=== PATIENT | male | born 1940 | race Caucasian/White ===

== ENCOUNTER → 2017-04-29 09:42 | Outpatient (CLI) | payer MEDICARE, OTHER, SELFPAY ==
[2017-04-29 12:45] LABS: Absolute Lymphocyte Count 0.88 X10^3/ul (0.83-4.51); Absolute Neutrophil Count 3.2 X10^3/uL (2.0-7.7); Basophil# 0.01 X10^3/uL; Basophil% 0.2 % (0-1); Eosinophil# 0.07 X10^3/uL; Eosinophils% 1.5 % (0-5); Hematocrit 48.1 % (40-54); Hemoglobin 16.1 g/dl (13.0-16.5); Lymphocyte # 0.88 X10^3/ul (4.0); Lymphocyte % 19.3 % (19-41); Mean Corp Hgb Conc 33.5 g/gl (32-36); Mean Corpuscular Hgb 30.6 pg (27.0-32.0); Mean Corpuscular Volume 91.4 fL (80-94); Mean Platelet Vol. 12.3 fl (6.2-12.0); Monocyte# 0.35 X10^3/uL; Monocyte% 7.7 % (0-10); Neutrophil # 3.24 X10^3/uL (2.7-7.7); Neutrophil % 71.3 % (47-70); Platelet Count 145 K/mm3 (150-450); RBC Distribution Width CV 15.4 % (11.6-14.6); RBC Distribution Width SD 51.2 fl (35.1-43.9); Red Blood Count 5.26 M/mm3 (4.6-6.2); White Blood Count 4.6 K/mm3 (4.4-11.0)
[2017-04-29 12:46] LABS: POSITIVE COUNT NO; POSITIVE DIFFERENTIAL NO; POSITIVE MORPHOLOGY NO
[2017-04-29 12:55] LABS: International Normalized Ratio 3.1; Prothrombin Time (Protime)PT. 30.8 SECONDS (11.7-14.9)
[2017-04-29 13:14] LABS: Microalbumin,Random Urine 9.1 mg/L (NO RANGE EST.); Microalbumin:Creatinine Ratio 8.7 mg/g CRE (<30 mg/g CRE)
[2017-04-29 13:26] LABS: ALB/GLOB Ratio 1.2 RATIO (0.9-2.4); AST(SGOT) 18 U/L (15-37); Alanine Aminotransfer ALT/SGPT 26 U/L (16-61); Albumin, Serum 3.7 g/dL (3.2-5.0); Alkaline Phosphatase 115 U/L (45-117); Anion Gap 9 (5-15); BUN 14 mg/dL (7-18); BUN/Creat Ratio 17.7 RATIO (10-20); Calcium,Total 8.4 mg/dL (8.5-10.1); Chloride 106 mmol/L (98-107); Cholesterol 120 mg/dL (200); Creatinine, Serum 0.79 mg/dL (0.70-1.30); EST Glomerular Filtration Rate 101 mL/min (>60); Est Glom Filt Rate - Afr Amer 123 mL/min (>60); Globulin 3.1 g/dL (2.2-4.2); Glucose 99 mg/dL (74-106); High Density Lipoprotein 47 mg/dL; Potassium 4.1 mmol/L (3.5-5.1); Protein, Total 6.8 g/dL (6.4-8.2); Sodium Level 141 mmol/L (136-145); Thyroid Stim Hormone (TSH) 1.43 uIU/mL (0.358-3.74); Triglycerides 136 mg/dL; Very Low Density Lipoprotein 27 mg/dL (5-40)
== END ==
PROVIDERS: Family Provider Family Medicine; PCP Family Medicine; Visit Provider Family Medicine
DX: I25.10 Atherosclerotic heart disease of native coronary artery without angina pectoris (principal); M79.89 Other specified soft tissue disorders; I48.91 Unspecified atrial fibrillation
CPT/HCPCS: 36415; 80053; 80061; 82043; 82570; 83735; 84443; 85025; 85610

== ENCOUNTER 2017-06-22 11:00 | Outpatient (RCR) | payer MEDICARE, OTHER, SELFPAY ==
--- NOTE | 2017-05-18 17:26 | HP.PTEVAL_ITS ---
Patient's Visit Information JOSSE TIRADO is a 76 year old M referred to Physical Therapy by Abdirizak LYNN with a diagnosis of Shoulder, hip weakness and falls/gait disturbance. Date of Evaluation: 05/18/17 Physical Therapist: Rosaura Hardy - Visit Plan Frequency: 2-3x /Week Duration: 4-6 Weeks Plan: 2-3X/ week for 4-6 weeks for testing on the NeuroCOm and treatment based on results on NeuroCOm, LE strengtheing, balance activities, functional activities with HEP - Subjective Subjective: Pt reports that he has fallen 3X in the last year and the last one was in [place] and he slipped on wet cement and fell hard on his L side. He reports that even before he fell he was having trouble picking up his L leg ( has fallen 2X on the step for not lifting up his foot high enough). He has L sided weakness. He has some trouble with increaing SOB and increase fatigue. Pt has aan irregular HB and has had a cardiac stent placed. He has not seen a laundry routeman in years. He complains of tingling in his L foot. He reports that his feet are always cold. He feels that he has decreased circulation in his feet. He reports that he gets dizzy with transitions and that sometime when he is walking. He reports that he has a fear of falling and a fear of heights. reports htat the pt has some trouble getting out of a chair. He also has trouble going up and down stairs (he goes up with the R foot) with 2 hand rails. Pt reports that he had meds for an ear infetion and he does not feel like it is getting any better. - Pain back pain Pain Intensity (Out of 10): 1 L leg pain Pain Intensity (Out of 10): 1 - Objective Gait: walks with decrease stance time on the L LE, wider HENNY. FGA: 13. LE MMT: hip flex L 4-/5 and hip flex R 4/5, knee ext 4/5 B, knee flex B, hip abd B 4/5. Sit to stands...needs UE strength to help get out of the chair. - Balance Scores Functional Gait Assessment Score: 13 % Disability: 56.6700 - Goals Goal 1:: I HEP Goal Time Frame: 4-6 Weeks Goal 2:: Increase FGA by 5 points to decrease fall risk Goal Time Frame: 4-6 Weeks Goal 3:: Test pt on the NeuroCOM Goal Time Frame: 4-6 Weeks Goal 4:: Increase LE strength by 1.2 muscle grade on the L (LE MMT at time of the eval: hip flex L 4-/5 and hip flex R 4/5, knee ext 4/5 B, knee flex B, hip abd B 4/5 - Rehabilitation Potential Rehabilitation Potential: Good - Anticipated Interventions Patient/Client Instruction: Educate patient on: Condition, Plan of Care For the Purpose of:: To improve muscle performance and motor function, To improve ability to perform ADL's, To increase tolerance to activity/condition/ position, To improve ability of physical actions for home/community/work/leisure , To improve gait and locomotor functions, To increase flexibility/ROM, To improve balance, To improve safety with gait Therapeutic Exercise to Include: Strength training, Endurance training, Balance training, Postural training, Flexibilty training, Gait and locomotor training, via Neurocom Balance Mas, Passive ROM, Dynamic Lumbar Stabilization For the Purpose of:: To decrease pain, To improve nutrient delivery to tissue, To improve ability to perform ADL's, To increase tolerance to activity/condition /position, To improve ability of physical actions for home/community/work/ leisure, To improve gait and locomotor functions, To increase flexibility/ROM, To improve balance, To improve safety with gait Functional Training to Include: Gait training For the Purpose of:: To improve gait and locomotor functions, To improve safety with gait Thank you for the opportunity to evaluate your patient. For Medicare and Medicare HMO plans, please review the plan of care and approve it. It will need to be FAXED BACK to us at [phone] for Medicare purposes. Please let me know if there are questions or concerns regarding this plan of care. Physician Signature: Date:
--- NOTE | 2017-05-25 16:26 | HP.PTCOM ---
PT Communication Note 05/25/[address] Abdirizak LYNN, Thank you for the referral of Mariano Leonard to our clinic with the diagnosis of falls, back pain. He was tested on our NeuroCom Equitest today and enclosed are the test results. On the Sensory Organization Test (SOT) his overall score was below age related norms. He had trouble with the use of his vestibular system to help him maintain his balance. He is center of gravity alignment is slightly more to the R and he is more ankle dominant which is a higher level strategy. On the Motor Control Test (MCT), his overall reaction time is with in normal limits for someone of his age. The Limits of Stability Test (LOS) revealed that he had some trouble with weight shifting forward. At this point in time, we plan on seeing Mariano 2X/ week for 4 weeks to work on vestibular inputs as well as weight shifting to the R. We will also be working on his L LE strength and core stability to try and prevent falls in the future. Thank you Sincerely, Rosaura Hardy Contact Information
--- NOTE | 2017-06-15 12:17 | HP.PTREVAL_ITS ---
DR.ESMITH Liz It has been my pleasure to treat JOSSE TIRADO over the last 7 visits for Shoulder, hip weakness and falls/gait disturbance. Please see the progress note below for an update on the physical therapy plan of care! Subjective: Pt reports no pain. He feels that he is still dizzy first thing in the morning. Pt feels that he is catching his feet less and tripping less. He is more careful at places that he can get hurt. He is doing the kitchen sink exercises at home. He is also stretching his hamstrings at home. He feels he needs more strength. Objective/Function: FGA: 17. Stepping up onto a 6 inch step without UE support was challenging for the pt and he need to hold on to the // bars at time to catch his balance. LE MMT: hip flex R 4-/5, knee ext 4/5, knee flex 4-/5, hip abd 4/5 Plan Plan: 2-3X/ week for 4-6 weeks for vestibular inputs (EO/EC on and off foam) weight shifts forward (on and off the NeuroCOm), L LE strengtheing, balance activities, functional activities with HEP Goals Goal 1:: I HEP Goal Time Frame: 4-6 Weeks Goal Progress: Goal Met Goal 2:: Increase FGA by 5 points to decrease fall risk to a score of 18 Goal Time Frame: 4-6 Weeks Goal Progress: Progressing Goal 3:: Test pt on the NeuroCOM Goal Time Frame: 4-6 Weeks Goal Progress: Goal Met Goal 4:: Increase LE strength by 1.2 muscle grade on the L (LE MMT at time of the eval: hip flex L 4-/5 and hip flex R 4/5, knee ext 4/5 B, knee flex B, hip abd B 4/5 Anticipated Interventions Patient/Client Instruction: Educate patient on: Condition, Plan of Care For the Purpose of:: To improve muscle performance and motor function, To improve ability to perform ADL's, To increase tolerance to activity/condition/ position, To improve ability of physical actions for home/community/work/leisure , To improve gait and locomotor functions, To increase flexibility/ROM, To improve balance, To improve safety with gait Therapeutic Exercise to Include: Strength training, Endurance training, Balance training, Postural training, Flexibilty training, Gait and locomotor training, via Neurocom Balance Mas, Passive ROM, Dynamic Lumbar Stabilization For the Purpose of:: To decrease pain, To improve nutrient delivery to tissue, To improve ability to perform ADL's, To increase tolerance to activity/condition /position, To improve ability of physical actions for home/community/work/ leisure, To improve gait and locomotor functions, To increase flexibility/ROM, To improve balance, To improve safety with gait Functional Training to Include: Gait training For the Purpose of:: To improve gait and locomotor functions, To improve safety with gait Please do not hesitate to contact me at [phone] by phone or Fax: if you have questions or concerns regarding this new plan of care! Sincerely, Rosaura Hardy
--- NOTE | 2017-06-22 11:28 | HP.PTDCSUM ---
HP - PT D/C Summary It has been my pleasure to treat JOSSE TIRADO under orders from DR.ESMITH Liz for the diagnosis of Shoulder, hip weakness and falls/gait disturbance for a total of 9 visit(s). Discharge Date: 06/22/17 Please see the following information for a summary of their discharge status. - Subjective Subjective: Pt reports that he still gets dizzy periodically mostly when standing or pending over. He is ready to be discharged from therapy. Pt feels that his L leg has gotten stronger. He has been doing the exercises at home. - Pain back pain Pain Intensity (Out of 10): 5 L leg pain Pain Intensity (Out of 10): 2 - Overall Improvement % Improvement: 50 - Objective Objective/Function: see above - Goals Goal 1:: I HEP Goal Progress: Goal Met Goal 2:: Increase FGA by 5 points to decrease fall risk to a score of 18 Goal Progress: Goal Met Goal 3:: Test pt on the NeuroCOM Goal Progress: Goal Met Goal 4:: Increase LE strength by 1.2 muscle grade on the L (LE MMT at time of the eval: hip flex L 4-/5 and hip flex R 4/5, knee ext 4/5 B, knee flex B, hip abd B 4/5 Goal Progress: Goal Met - Plan Plan: DC PT to HEP per pt request - D/C Information Discharge Comments: DC PT to hep If there are questions or concerns regarding this patient's physical therapy, please feel free to call me at [phone]. Thank you for the referral of this patient. Sincerely, Rosaura Hardy
== END 2017-06-22 19:00 | disposition home or self-care (01) ==
LOC: PT 11:00
PROVIDERS: Family Provider Family Medicine; PCP Family Medicine; Visit Provider Family Medicine
DX: R53.1 Weakness (principal); R29.6 Repeated falls
CPT/HCPCS: 97110; 97162; 97530; 97750

== ENCOUNTER → 2017-11-15 14:56 | Outpatient (CLI) | payer MEDICARE, OTHER, SELFPAY ==
[2017-11-15 17:32] LABS: Absolute Lymphocyte Count 1.05 X10^3/ul (0.83-4.51); Absolute Neutrophil Count 3.1 X10^3/uL (2.0-7.7); Eosinophil# 0.17 X10^3/uL; Eosinophils% 3.5 % (0-5); Hematocrit 45.8 % (40-54); Hemoglobin 15.7 g/dl (13.0-16.5); Lymphocyte # 1.05 X10^3/ul (4.0); Lymphocyte % 21.6 % (19-41); Mean Corp Hgb Conc 34.3 g/gl (32-36); Mean Corpuscular Hgb 31.7 pg (27.0-32.0); Mean Corpuscular Volume 92.3 fL (80-94); Mean Platelet Vol. 12.6 fl (6.2-12.0); Monocyte# 0.53 X10^3/uL; Monocyte% 10.9 % (0-10); Platelet Count 119 K/mm3 (150-450); RBC Distribution Width CV 14.4 % (11.6-14.6); RBC Distribution Width SD 48.8 fl (35.1-43.9); Red Blood Count 4.96 M/mm3 (4.6-6.2); White Blood Count 4.9 K/mm3 (4.4-11.0)
[2017-11-15 17:41] LABS: International Normalized Ratio 1.8; Prothrombin Time (Protime)PT. 21.1 SECONDS (11.7-14.9)
[2017-11-15 17:44] LABS: POSITIVE COUNT NO; POSITIVE DIFFERENTIAL NO; POSITIVE MORPHOLOGY NO
[2017-11-15 17:58] LABS: ALB/GLOB Ratio 1.4 RATIO (0.9-2.4); AST(SGOT) 24 U/L (15-37); Alanine Aminotransfer ALT/SGPT 35 U/L (16-61); Albumin, Serum 3.8 g/dL (3.2-5.0); Alkaline Phosphatase 46 U/L (45-117); Anion Gap 11 (5-15); BUN 17 mg/dL (7-18); BUN/Creat Ratio 17.6 RATIO (10-20); CRP < 2.90 mg/L (0.0-3.0); Calcium,Total 8.7 mg/dL (8.5-10.1); Chloride 105 mmol/L (98-107); Creatinine, Serum 0.97 mg/dL (0.70-1.30); EST Glomerular Filtration Rate 81 mL/min (>60); Est Glom Filt Rate - Afr Amer 97 mL/min (>60); Globulin 2.8 g/dL (2.2-4.2); Glucose 90 mg/dL (74-106); Potassium 3.8 mmol/L (3.5-5.1); Protein, Total 6.6 g/dL (6.4-8.2); Sodium Level 144 mmol/L (136-145); Thyroid Stim Hormone (TSH) 1.85 uIU/mL (0.358-3.74)
== END ==
PROVIDERS: Family Provider Family Medicine; PCP Family Medicine; Visit Provider Family Medicine
DX: I48.91 Unspecified atrial fibrillation (principal); R22.1 Localized swelling, mass and lump, neck
CPT/HCPCS: 36415; 80053; 84443; 85025; 85610; 86140

== ENCOUNTER → 2018-08-02 12:47 | Outpatient (CLI) | payer MEDICARE, SELFPAY ==
[2016-05-23 21:48] VITALS: BMI 31.9
[2018-08-02 14:02] LABS: Hematocrit 45.7 % (40-54); Mean Corpuscular Hgb 31.7 pg (27.0-32.0); Mean Corpuscular Volume 90.5 fL (80-94); Mean Platelet Vol. 11.9 fl (6.2-12.0); Platelet Count 133 K/mm3 (150-450); RBC Distribution Width CV 14.7 % (11.6-14.6); RBC Distribution Width SD 47.8 fl (35.1-43.9); Red Blood Count 5.05 M/mm3 (4.6-6.2); White Blood Count 4.5 K/mm3 (4.4-11.0)
[2018-08-02 14:12] LABS: Scan Indicated on CBC? Y/N NO
[2018-08-02 14:13] LABS: Ferritin 677 ng/mL (26-388); Iron 157 ug/dL (65-175); Iron Binding Capacity,Total 254 ug/dL (250-450)
== END ==
PROVIDERS: Family Provider Family Medicine; PCP Family Medicine; Referring Provider Family Medicine; Visit Provider Family Medicine
DX: R53.83 Other fatigue (principal)
CPT/HCPCS: 36415; 82728; 83540; 83550; 85027

== ENCOUNTER → 2018-09-05 10:19 | Outpatient (CLI) | payer MEDICARE, SELFPAY ==
[2016-05-23 21:48] VITALS: BMI 31.9
[2018-09-05 12:38] LABS: Absolute Lymphocyte Count 1.01 X10^3/ul (0.83-4.51); Absolute Neutrophil Count 2.4 X10^3/uL (2.0-7.7); Basophil# 0.01 X10^3/uL; Basophil% 0.2 % (0-1); Eosinophil# 0.22 X10^3/uL; Eosinophils% 5.4 % (0-5); Hematocrit 46.6 % (40-54); Hemoglobin 16.2 g/dl (13.0-16.5); Lymphocyte # 1.01 X10^3/ul (4.0); Lymphocyte % 24.8 % (19-41); Mean Corp Hgb Conc 34.8 g/gl (32-36); Mean Corpuscular Hgb 31.3 pg (27.0-32.0); Mean Platelet Vol. 12.8 fl (6.2-12.0); Monocyte% 9.8 % (0-10); Neutrophil # 2.42 X10^3/uL (2.7-7.7); Neutrophil % 59.6 % (47-70); Platelet Count 121 K/mm3 (150-450); RBC Distribution Width CV 14.9 % (11.6-14.6); RBC Distribution Width SD 49.1 fl (35.1-43.9); Red Blood Count 5.18 M/mm3 (4.6-6.2); White Blood Count 4.1 K/mm3 (4.4-11.0)
[2018-09-05 12:48] LABS: POSITIVE COUNT NO; POSITIVE DIFFERENTIAL NO; POSITIVE MORPHOLOGY NO
[2018-09-05 13:20] LABS: Microalbumin,Random Urine 10.1 mg/L (NO RANGE EST.); Microalbumin:Creatinine Ratio 7.5 mg/g CRE (<30 mg/g CRE)
[2018-09-05 13:32] LABS: ALB/GLOB Ratio 1.5 RATIO (0.9-2.4); AST(SGOT) 18 U/L (15-37); Alanine Aminotransfer ALT/SGPT 27 U/L (16-61); Albumin, Serum 3.7 g/dL (3.2-5.0); Alkaline Phosphatase 61 U/L (45-117); Anion Gap 8 (5-15); BUN 16 mg/dL (7-18); BUN/Creat Ratio 18.5 RATIO (10-20); Calcium,Total 8.8 mg/dL (8.5-10.1); Chloride 106 mmol/L (98-107); Creatinine, Serum 0.86 mg/dL (0.70-1.30); EST Glomerular Filtration Rate 91 mL/min (>60); Est Glom Filt Rate - Afr Amer 110 mL/min (>60); Globulin 2.5 g/dL (2.2-4.2); Glucose 100 mg/dL (74-106); Magnesium 2.2 mg/dL (1.6-2.6); Potassium 4.1 mmol/L (3.5-5.1); Protein, Total 6.2 g/dL (6.4-8.2); Sodium Level 144 mmol/L (136-145); Thyroid Stim Hormone (TSH) 1.67 uIU/mL (0.358-3.74)
== END ==
PROVIDERS: Family Provider Family Medicine; PCP Family Medicine; Referring Provider Family Medicine; Visit Provider Family Medicine
DX: I25.10 Atherosclerotic heart disease of native coronary artery without angina pectoris (principal); I48.91 Unspecified atrial fibrillation
CPT/HCPCS: 36415; 80053; 82043; 82570; 83735; 84443; 85025

== ENCOUNTER → 2018-09-30 08:56 | Outpatient (CLI) | payer MEDICARE, SELFPAY ==
[2016-05-23 21:48] VITALS: BMI 31.9
[2018-09-30 11:09] LABS: AST(SGOT) 20 U/L (15-37); Alanine Aminotransfer ALT/SGPT 34 U/L (16-61); Albumin, Serum 3.9 g/dL (3.2-5.0); Alkaline Phosphatase 58 U/L (45-117); Bilirubin, Direct 0.28 mg/dL (0.00-0.30); Globulin 2.4 g/dL (2.2-4.2); Protein, Total 6.3 g/dL (6.4-8.2)
== END ==
PROVIDERS: Family Provider Family Medicine; PCP Family Medicine; Visit Provider Family Medicine
DX: R17 Unspecified jaundice (principal)
CPT/HCPCS: 36415; 80076

== ENCOUNTER → 2018-10-03 09:07 | Outpatient (CLI) | payer MEDICARE, SELFPAY ==
[2016-05-23 21:48] VITALS: BMI 31.9
[2018-10-03 11:15] LABS: AST(SGOT) 22 U/L (15-37); Alanine Aminotransfer ALT/SGPT 30 U/L (16-61); Albumin, Serum 3.8 g/dL (3.2-5.0); Alkaline Phosphatase 57 U/L (45-117); Bilirubin, Direct 0.34 mg/dL (0.00-0.30); Globulin 2.6 g/dL (2.2-4.2); Protein, Total 6.4 g/dL (6.4-8.2)
== END ==
PROVIDERS: Family Provider Family Medicine; PCP Family Medicine; Referring Provider Family Medicine; Visit Provider Family Medicine
DX: R17 Unspecified jaundice (principal)
CPT/HCPCS: 36415; 80076

== ENCOUNTER → 2018-10-17 09:31 | Outpatient (CLI) | payer MEDICARE, OTHER, SELFPAY ==
[2018-10-05 12:58] VITALS: BMI 33.1
--- NOTE | 2018-10-17 09:34 | US_ITS ---
STUDY: ABDOMINAL ULTRASOUND - RIGHT UPPER QUADRANT REASON FOR VISIT: Male, 78 years old. Elevated bilirubin TECHNIQUE: Ultrasound evaluation of the right upper quadrant was performed with real-time and static black-scale imaging. TECHNICAL QUALITY: Adequate. COMPARISON: None. FINDINGS: Liver: The liver measures 15.6 cm. There is normal echogenicity of the liver. The bile ducts are within normal limits. There is hepatic color flow. The direction of portal flow is hepatopetal. There is a 2.2 cm cystic nodule or 2 small adjacent cysts. Gallbladder: Status post cholecystectomy. Common Bile Duct (C.B.D.): The common bile duct measures 3.6 mm. Pancreas: Normal size of the head, body and tail of the pancreas. There is increased echogenicity of the pancreas. There is no demonstrated pancreatic mass or cyst. Right Kidney: Normal size of the right kidney. The right kidney measures 12.4 x 5.9 x 5.0 cm. Normal renal cortex. The right cortex measures 1.6 cm. There is no demonstrated renal mass or cyst. There is no right hydronephrosis. US/Liver IMPRESSION: Right hepatic cystic nodule. Status post cholecystectomy. Electronically Signed: Rashaun Quiroz DO at 22:36 EDT Tel [phone], Service support ,
== END ==
PROVIDERS: Family Provider Family Medicine; PCP Family Medicine; Referring Provider Family Medicine; Visit Provider Family Medicine
DX: R17 Unspecified jaundice (principal)
CPT/HCPCS: 76705

== ENCOUNTER → 2018-10-31 12:46 | Outpatient (CLI) | payer MEDICARE, OTHER, SELFPAY ==
[2018-10-05 12:58] VITALS: BMI 33.1
--- NOTE | 2018-10-31 13:18 | MRI_ITS ---
STUDY: MRI ABDOMEN WITHOUT CONTRAST REASON FOR EXAM: Male, 78 years old. Liver cyst TECHNIQUE: Standardized fat and water weighted pulse sequences were obtained in all 3 orthogonal planes. COMPARISON: Ultrasound dated 10/17/2018 FINDINGS: Evaluation is limited by patient motion and lack of contrast. The visualized lung bases are unremarkable. The visualized portions of the heart are within normal limits. There is a 2 cm T2 hyperintense lesion in segment 6 of the liver (image 15 series 4). This corresponds to the findings on the recent ultrasound and likely represents a cyst. The patient is status post cholecystectomy. The spleen, pancreas, adrenal glands and kidneys are normal in contour and signal intensity. The visualized bowel demonstrates no evidence of obstruction. The aorta is normal in caliber. MRI/Abdomen without Contrast IMPRESSION: Study limited by lack of contrast and patient motion. 2 cm T2 hyperintense lesion in the right lobe of the liver which corresponds to the findings on a recent ultrasound and likely represents a cyst. Electronically Signed: Miah Gleason, at 16:50 EDT Tel , Service support ,
== END ==
PROVIDERS: Family Provider Family Medicine; PCP Family Medicine; Referring Provider Family Medicine; Visit Provider Family Medicine
DX: K76.89 Other specified diseases of liver (principal)
CPT/HCPCS: 74181

== ENCOUNTER → 2018-11-17 09:39 | Outpatient (CLI) | payer MEDICARE, OTHER, SELFPAY ==
[2018-10-05 12:58] VITALS: BMI 33.1
--- NOTE | 2018-11-17 09:44 | RAD_ITS ---
STUDY: X-RAY - UNILATERAL RIBS ( RIGHT ) WITH CHEST REASON FOR EXAM: Male, 78 years old. Right lateral rib pain after recent fall. TECHNIQUE - RIBS: 4 view(s) of the ribs. TECHNIQUE - CHEST: Frontal chest. COMPARISON: None. FINDINGS - RIBS: Mildly displaced acute right lateral seventh and eighth and nondisplaced ninth rib fractures. No other fracture is evident. FINDINGS - CHEST: No apparent pneumothorax or pleural effusion or lung contusion. Heart size within normal limits. Tortuous thoracic aorta. No apparent free air under the diaphragm. RAD/Ribs Uni Min 3V w/PA Chest IMPRESSION: RIBS: Acute right 7, 8, 9 rib fractures. CHEST: No apparent pneumothorax or other complication in the chest. Electronically Signed: Fabian Wills, at 11:13 EDT Tel , Service support ,
== END ==
PROVIDERS: Family Provider Family Medicine; PCP Family Medicine; Referring Provider Family Medicine; Visit Provider Family Medicine
DX: S20.211A Contusion of right front wall of thorax, initial encounter (principal)
CPT/HCPCS: 71101

== ENCOUNTER → 2019-03-07 10:28 | Outpatient (CLI) | payer MEDICARE, OTHER, SELFPAY ==
[2018-10-05 12:58] VITALS: BMI 33.1
--- NOTE | 2019-03-07 10:30 | ECHOD_ITS ---
Reason For Study: ARRHYTHMIA Procedure This was a 2D Doppler, Color Flow transthoracic echocardiogram. Exam performed in department. Left Ventricle Normal LV size. The estimated ejection fraction is 60 %. Diastolic function is indeterminate. No regional wall motion abnormalities noted. Right Ventricle Moderately dilated right ventricle. Normal systolic function. Atria The left atrium is mildly enlarged. The right atrium is moderately enlarged. No doppler evidence for ASD. Mitral Valve There is no mitral valve stenosis. Mild (1+) mitral valve insufficiency. Tricuspid Valve There is no tricuspid stenosis. Trivial tricuspid valve insufficiency. Pulmonary artery systolic pressure is 45-50 mmHg. Aortic Valve Mild diffuse aortic valve thickening. Aortic sclerosis, no stenosis. Trivial aortic valve insufficiency. Pulmonic Valve There is no pulmonic valvular stenosis. Trivial pulmonic valve insufficiency. Great Vessels Normal aortic root. Pericardium/Pleural No pericardial effusion. MMode/2D Measurements & Calculations LVIDd: 4.4 cm IVSd: 1.2 cm Ao root diam: 3.4 cm LVIDs: 3.1 cm LVPWd: 0.97 cm RVDd: 4.0 cm FS: 30.6 % LAV(MOD-bp): 67.9 ml LVAd ap4: 30.7 cm2 SV(MOD-sp4): 57.1 ml LAV(MOD-bp) Indexed: 32.2 ml/m2 EDV(MOD-sp4): 101.6 ml LAV(MOD-sp2): 69.3 ml EDV(sp4-el): 109.4 ml LAV(MOD-sp4): 64.9 ml LVAs ap4: 18.5 cm2 ESV(MOD-sp4): 44.5 ml ESV(sp4-el): 43.9 ml EF(MOD-sp4): 56.2 % EF(sp4-el): 59.9 % SV(sp4-el): 65.5 ml LA A4 area: 22.3 cm2 LA dimension(2D): 5.0 cm RA A4 area: 26.6 cm2 Doppler Measurements & Calculations MV E max jasiel: 83.0 cm/sec Ao V2 max: 122.6 cm/sec AI max jasiel: 392.5 cm/sec Ao max P.0 mmHg AI max P.6 mmHg AI dec slope: 169.0 cm/sec2 AI P1/2t: 680.3 msec LV V1 max: 78.1 cm/sec PA V2 max: 87.9 cm/sec TR max jasiel: 311.3 cm/sec LV V1 max P.5 mmHg TR max P.8 mmHg Interpretation Summary The estimated ejection fraction is 60 %. Diastolic function is indeterminate. Moderately dilated right ventricle. The left atrium is mildly enlarged. The right atrium is moderately enlarged. Mild (1+) mitral valve insufficiency. Pulmonary artery systolic pressure is 45-50 mmHg. Aortic sclerosis, no stenosis. Trivial aortic valve insufficiency. Ordering Physician: Rosi Rangel Referring Physician: KENTON GLASS Performed By: Subha Yo RDCS
== END ==
PROVIDERS: Family Provider Family Medicine; PCP Family Medicine; Referring Provider Specialist; Visit Provider Specialist
DX: I10 Essential (primary) hypertension (principal); I48.20 Chronic atrial fibrillation, unspecified
CPT/HCPCS: 93306

== ENCOUNTER → 2019-03-08 11:25 | Outpatient (CLI) | payer MEDICARE, OTHER, SELFPAY ==
[2018-10-05 12:58] VITALS: BMI 33.1
--- NOTE | 2019-03-08 11:26 | RAD_ITS ---
STUDY: X-RAY CHEST REASON FOR EXAM: Male, 78 years old. Chest pain TECHNIQUE: Frontal and lateral views COMPARISON: None. FINDINGS: The lungs are expanded. Basilar atelectasis. Cardiomegaly. Normal mediastinum and jayjay. Normal visualized pulmonary arteries. Normal visualized aortic arch with tortuous descending thoracic aorta. Mild degenerative changes of the thoracic spine. Normal visualized ribs, clavicles, and shoulders. There is no demonstrated abnormality of the visualized soft tissue structures of the upper abdomen. RAD/Chest PA and Lateral IMPRESSION: Basilar atelectasis. Electronically Signed: Rashaun Quiroz DO at 22:47 EST Tel [phone], Service support ,
--- NOTE | 2019-03-08 11:26 | RAD_ITS ---
STUDY: X-RAY - BILATERAL RIBS REASON FOR EXAM: Male, 78 years old. Sternal chest pain with radiation into both ribs. TECHNIQUE: 5 view(s) of the ribs. COMPARISON: None. FINDINGS: Healing fractures of the right sixth seventh and eighth ribs anterolaterally. The visualized lungs are clear and expanded. Normal heart, mediastinum and pulmonary jayjay. RAD/Ribs Bilat 3V No CXR IMPRESSION: Healing fractures of the right C6-7 and eighth ribs anterolaterally. Electronically Signed: Wily Harden, at 12:28 EST , Service support ,
--- NOTE | 2019-03-08 11:26 | RAD_ITS ---
STUDY: X-RAY STERNUM REASON FOR EXAM: Male, 78 years old. Sternal chest pain following a fall. TECHNIQUE: 4 view(s) of the sternum were obtained. COMPARISON: None. FINDINGS: There is evidence of a nondisplaced transverse fracture involving the proximal portion of the body of the sternum. RAD/Sternum min 2 Views IMPRESSION: Nondisplaced transverse fracture of the proximal body of the sternum. Electronically Signed: Wily Harden, at 12:36 EST , Service support ,
== END ==
PROVIDERS: Family Provider Family Medicine; PCP Family Medicine; Referring Provider Family Medicine; Visit Provider Family Medicine
DX: R07.89 Other chest pain (principal)
CPT/HCPCS: 71046; 71110; 71120

== ENCOUNTER 2020-06-20 00:38 | Inpatient (IN) | payer MEDICARE, OTHER, SELFPAY ==
[2019-05-24 10:56] VITALS: BMI 33.5
[2020-06-20] VITALS (16 sets, daily range): BP systolic 84–164; BP diastolic 44–90; PULSE 60–99; RESP 16–24; TEMP 36.5–39.4; O2SAT 92–98; BMI 34.2; BMI 32.3
--- NOTE | 2020-06-20 00:43 | RAD_ITS ---
STUDY: X-RAY CHEST REASON FOR EXAM: Male, 80 years old. cough TECHNIQUE: Single AP portable view of the chest. COMPARISON: 03/08/2019 FINDINGS: Lungs are mildly hypoinflated with subtle patchy airspace disease throughout suggesting mild pulmonary edema. No consolidation or effusions. There is mild cardiac enlargement. Normal mediastinum and jayjay. Normal visualized pulmonary arteries. Normal visualized aortic arch and descending thoracic aorta. Normal visualized thoracic spine. Normal visualized ribs, clavicles, and shoulders. There is no demonstrated abnormality of the visualized soft tissue structures of the upper abdomen. RAD/Chest 1 View (Portable) IMPRESSION: Suspected mild pulmonary edema. Mild cardiomegaly Electronically Signed: Rahat Starkey DO at 1:41 EDT Tel , Service support ,
--- NOTE | 2020-06-20 00:43 | EKG12_ITS ---
Test Reason : DYSRYTHMIA Blood Pressure : / mmHG Vent. Rate : 092 BPM Atrial Rate : 234 BPM P-R Int : 000 ms QRS Dur : 086 ms QT Int : 344 ms P-R-T Axes : 000 -22 -27 degrees QTc Int : 425 ms Atrial fibrillation Nonspecific ST abnormality Abnormal ECG Confirmed by NATHANAEL LARA, RAYA ([id number]), assignment desk editor KAYA KENNEDY ([id number]) on 06/21/2020 12:47:57 PM Referred By: KASIE Confirmed By:RAYA HUFFMAN MD
--- NOTE | 2020-06-20 00:44 | CT_ITS ---
STUDY: CT BRAIN WITHOUT CONTRAST REASON FOR EXAM: Male, 80 years old. fall RADIATION DOSAGE (If Supplied By Facility): CTDIvol = ( 44.99 ) mGy, DLP = ( 849.54 ) mGycm TECHNIQUE: Transaxial CT imaging of the brain was performed without administration of intravenous contrast material. Individualized dose optimization techniques were used for this CT. COMPARISON: No relevant priors. FINDINGS: Normal soft tissue structures. Normal calvarium. There is mild cerebral atrophy with widening of the extra-axial spaces and ventricular dilatation. There are areas of decreased attenuation within the white matter tracts of the supratentorial brain, consistent with microvascular disease changes. Normal basal ganglia and thalami. Normal brainstem. Normal cerebellum. There is no intracranial hemorrhage. There are no findings of an acute ischemic infarction. Normal visualized paranasal sinuses. CT/Brain/Head without Contrast IMPRESSION: Chronic involutional changes of the brain. Electronically Signed: Rahat Starkey DO at 1:43 EDT Tel , Service support ,
--- NOTE | 2020-06-20 00:46 | ED.VISSUMM ---
- ER Visit Summary Date of Service: 06/20/20 Chief Complaint: Fall History of Present Illness: The patient is a 80 M who presents after a fall. He states that he fell today. He states his legs just gave out. He denies any injuries from the fall. Has been feeling generalized weakness for 1 week. He has had a cough with some mild shortness of breath. He denies any pain anywhere. No chest pain. He did receive his coronavirus vaccination on May 30. He denies any slurred speech. The patient is on Eliquis for atrial fibrillation. EMS was called and they checked the patient's pulse ox he was 93% in the squad but his temperature was elevated. Physical Examination: Vital signs reviewed. His temperature is 103 ?F. HEENT exam unremarkable. Heart is regular rate and rhythm without murmurs. Lungs are rhonchorous in the bilateral lower lobes. Abdomen is soft and nontender. Extremities reveal plus symmetric edema. Skin exam normal. Neurologic exam normal. Test Results: EKG is atrial fibrillation with a rate of 92. There are nonspecific ST-T wave changes noted. CAT scan has unremarkable. Chest x-ray shows cardiomegaly with some mild pulmonary edema. White blood cell count normal. Sodium is 134, potassium 2.8, glucose 125. Total bilirubin 1.4. Troponin 0 0.02. Covid is positive. Influenza is negative. Emergency Department Course and Treatment: The patient was given IV Decadron and Tylenol. He was 87% on room air at 0 142. Patient was placed on nasal cannula oxygen. He was given oral potassium. The patient was discussed with the hospitalist for admission due to his hypoxia. Treatment Plan: [] Disposition: Admit Impression: Covid 19, hypoxia, weakness This note was generated with [employer] software. It may contain incorrect words, spelling, and punctuation that were not noted in review of the chart prior to signing ED Disposition - Plan for ED Patient: Referrals: Abdirizak Dillon MD [Primary Care Provider] -
[2020-06-20] MEDS: Acetaminophen 325 MG Tablet 650 MG PO (00:51)
[2020-06-20 01:02] LABS: Absolute Lymphocyte Count 0.45 X10^3/uL (0.83-4.51); Absolute Neutrophil Count 4.4 X10^3/uL (2.0-7.7); Basophil# 0.01 X10^3/uL; Basophil% 0.2 % (0-1); Hematocrit 43.7 % (40-54); Hemoglobin 15.9 g/dL (13.0-16.5); Lymphocyte # 0.45 X10^3/ul (4.0); Lymphocyte % 8.5 % (19-41); Mean Corp Hgb Conc 36.4 g/dL (32-36); Mean Corpuscular Hgb 32.5 pg (27.0-32.0); Mean Corpuscular Volume 89.4 fL (80-94); Mean Platelet Vol. 11.6 fl (6.2-12.0); Monocyte# 0.37 X10^3/uL; NRBC Flagged by Analyzer 0 % (0-5); Neutrophil # 4.42 X10^3/uL (2.7-7.7); Neutrophil % 83.7 % (47-70); POSITIVE COUNT YES; POSITIVE DIFFERENTIAL YES; Platelet Count 90 K/mm3 (150-450); RBC Distribution Width CV 13.7 % (11.6-14.6); RBC Distribution Width SD 44.8 fl (35.1-43.9); Red Blood Count 4.89 M/mm3 (4.6-6.2); White Blood Count 5.3 K/mm3 (4.4-11.0)
[2020-06-20 01:08] LABS: Differential Indicated SCAN CRITERIA MET
[2020-06-20 01:11] LABS: International Normalized Ratio 1.1; Prothrombin Time (Protime)PT. 13.4 SECONDS (11.7-14.9)
[2020-06-20 01:13] LABS: Partial Thromboplast Time 34.9 Seconds (24.1-36.2)
[2020-06-20 01:23] LABS: AST(SGOT) 35 U/L (15-37); Alanine Aminotransfer ALT/SGPT 28 U/L (16-61); Albumin, Serum 3.5 g/dL (3.2-5.0); Alkaline Phosphatase 52 U/L (45-117); Anion Gap 5 (5-15); BUN 21 mg/dL (7-18); BUN/Creat Ratio 20.6 RATIO (10-20); Calcium,Total 8.4 mg/dL (8.5-10.1); Chloride 96 mmol/L (98-107); Creatinine, Serum 1.02 mg/dL (0.70-1.30); EST Glomerular Filtration Rate 75 mL/min (>60); Est Glom Filt Rate - Afr Amer 91 mL/min (>60); Globulin 3.4 g/dL (2.2-4.2); Glucose 125 mg/dL (74-106); Potassium 2.8 mmol/L (3.5-5.1); Protein, Total 6.9 g/dL (6.4-8.2); Sodium Level 134 mmol/L (136-145)
[2020-06-20 01:24] LABS: Lactic Acid 1.1 mmol/L (0.4-1.9)
[2020-06-20 01:43] LABS: Differential Comment SCANNED; Platelet Estimate SLT DEC (ADEQ)
[2020-06-20] MEDS: dexAMETHasone 10 MG/ML Vial 6 MG IV (01:54)
[2020-06-20 02:19] LABS: Mucous, Urine 0 SEEN /hpf (<or=2+)
[2020-06-20 02:20] LABS: Color, Urine Yellow (Yellow); Glucose, Dipstick Normal (Normal); Ketone-Dipstick 50 mg/dl (Negative); Leukocyte Esterase-Dipstick Negative /ul (Negative); Nitrite-Dipstick Negative (Negative); Occult Blood-Urine 250 /ul (Negative); Protein-Dipstick 30 mg/dl (Negative); Specific Gravity, Urine 1.025 (1.002-1.030); Urine Bilirubin Dipstick Negative (Negative); Urine Clarity Clear (Clear); Urine Urobilinogen 1 mg/dl (Normal)
[2020-06-20 02:26] LABS: Bacteria 2+ /hpf (None Seen); Red Blood Cells-Urine 10-25 SEEN /hpf (0-5); Squamous Epithelial Cells - UA 0-5 SEEN /hpf (0-5); White Blood Cells 0-5 SEEN /hpf (0-5)
--- NOTE | 2020-06-20 02:33 | PCM.HP.STD ---
Problem List (1) SARS pneumonia Status: Acute (2) COVID-19 Status: Acute (3) Pulmonary hypertension Status: Chronic (4) Sternal fracture Status: Chronic (5) History of cardioversion Status: Chronic Comment: failed (6) Essential hypertension Status: Chronic (7) Hyperlipidemia Status: Chronic Qualifiers: Hyperlipidemia type: unspecified Qualified Code(s): E78.5 - Hyperlipidemia, unspecified (8) Chronic atrial fibrillation Status: Chronic (9) Presence of stent in coronary artery Status: Chronic Comment: 3.0 x 16mm Taxus II ALOK to dLCx 01/27/05 (10) Atherosclerosis of coronary artery of [place] heart without angina pectoris Status: Chronic Qualifiers: Coronary Disease-Associated Artery/Lesion type: [place] artery Qualified Code(s): I25.10 - Atherosclerotic heart disease of [place] coronary artery without angina pectoris Comment: 3.0 x 16mm Taxus II ALOK to dLCx 01/27/05 History of Present Illness Date of Admission: 06/20/20 Chief Complaint: Altered mental status The patient is a 80 year old M with a significant history of atrial fibrillation; CAD status post stent who presents emergency department with altered mental status that started few hours before presentation. Patient reported that pain his he was not acting right. Associated with symptom is a fall; productive cough; fatigue; and significant loss of taste with anorexia. Also he has some mild decrease in smell sensation. He has chronic dyspnea on exertion. However he think that his shortness of breath might have mildly worsened. Reportedly on05/30/2020 patient had a [employer] vaccination. His constellation of symptoms started about a week ago. Past Medical History Past Medical History (Chronic Problems): Chronic Problems (Last Reviewed 06/20/20 @ 03:[address] Fabio Bartholomew MD) Pulmonary hypertension (Chronic) Sternal fracture (Chronic ~03/08/19) History of cardioversion (Chronic) failed Essential hypertension (Chronic) Hyperlipidemia (Chronic) Chronic atrial fibrillation (Chronic) Presence of stent in coronary artery (Chronic) 3.0 x 16mm Taxus II ALOK to dLCx 01/27/05 Atherosclerosis of coronary artery of [place] heart without angina pectoris (Chronic) 3.0 x 16mm Taxus II ALOK to dLCx 01/27/05 Medical History: Medical History (Last Reviewed 06/20/20 @ 03:[address] Fabio Bartholomew MD) Sternal fracture (Chronic) Onset Date: ~03/08/19 S22.20XA History of cardioversion (Chronic) Z98.890 failed Essential hypertension (Chronic) I10 Hyperlipidemia (Chronic) E78.5 Chronic atrial fibrillation (Chronic) I48.2 Atherosclerosis of coronary artery of [place] heart without angina pectoris (Chronic) I25.10 3.0 x 16mm Taxus II ALOK to dLCx 01/27/05 Back pain M54.9 Difficulty balancing R29.818 Fatigue R53.83 Hemorrhoids K64.9 Limb weakness R29.898 SOB (shortness of breath) R06.02 Shoulder pain M25.519 BPH (benign prostatic hyperplasia) N40.0 Umbilical hernia K42.9 History of fall Z91.81 Allergies ezetimibe [From Vytorin] Allergy (Intermediate, Verified 06/20/20 00:53) Unknown simvastatin [From Vytorin] Allergy (Intermediate, Verified 06/20/20 00:53) Unknown surgical tape Adverse Reaction (Uncoded 06/20/20 00:53) Rash Home Medications: Ambulatory Orders Medication Instructions Recorded benazepril 20 mg tablet 20 mg PO BID tab 10/03/18 carvedilol 12.5 mg tablet 12.5 mg PO BID 10/03/18 rosuvastatin 20 mg tablet 20 mg PO DAILY 10/03/18 apixaban 5 mg tablet 5 mg PO BID 10/05/18 indapamide 1.25 mg tablet 1.25 mg PO QAM 04/12/19 Surgical History: Surgical History (Last Reviewed 06/20/20 @ 03:[address] Fabio Bartholomew MD) Presence of stent in coronary artery (Chronic) Z95.5 3.0 x 16mm Taxus II ALOK to dLCx 01/27/05 tongue surgery History of cataract extraction with lens replacement History of cholecystectomy Z90.49 History of extraction of renal calculus Z98.890, Z87.442 Smoking Status: Never smoker - *Family History Maternal Family History: Family History (Last Reviewed 06/20/20 @ 03:[address] Fabio Bartholomew MD) Mother Heart disease CAD (coronary artery disease) Diabetes Hypertension Father AAA (abdominal aortic aneurysm) Colon cancer Sister Cancer Brother Cancer Hypertension Grandmother Diabetes Sister Hypertension Review of Systems Constitutional: Reports: Anorexia, Chills, Fever, Malaise, Weakness, Fatigue. Denies: Weight Change HEENT: Denies: Head Aches, Sinus Congestion, Sinus Drainage Cardiovascular: Denies: Chest Pain, Palpitations Respiratory: Reports: Cough, Shortness of Breath, Sputum production Gastrointestinal: Denies: Abdominal Pain, Nausea, Vomiting Genitourinary: Denies: Dysuria Musculoskeletal: Denies: Joint Pain, Joint Tenderness Skin: Denies: Rash, Wounds Neurological: Denies: Numbness, Tingling, Focal weakness Psychiatric: Denies: Anxiety, Depression, Homicidal Ideations, Suicidal Ideations Hematologic/ Lymphatic: Denies: Easy Bruising, Easy Bleeding VTE Information - Inpt Only VTE Present on Admission: No VTE Mechan Device Prophylaxis: None VTE Pharm Prophylaxis ordered?: Yes Patient Problems: Active and Suspected Problems (Last Reviewed 06/20/20 @ 03:[address] Fabio Bartholomew MD) SARS pneumonia (Acute) COVID-19 (Acute) - Physical Exam Vitals/I&O's: Vital Signs Temp Pulse Resp BP Pulse Ox 101.7 F H 97 18 131/87 H 95 06/20/20 01:45 06/20/20 01:45 06/20/20 01:45 06/20/20 01:45 06/20/20 01:45 Oxygen Delivery Method Room Air Weight: 99.3 kg Body Mass Index (BMI) 34.2 General: Alert, Oriented x3, Cooperative HEENT: Atraumatic, PERRLA, EOMI, Normocephalic Neck: Supple, No JVD, Negative Carotid Bruits Lungs: Diminished Cardiovascular: Normal S1, Normal S2, No murmurs, Irregular Rate Abdomen: Bowel Sounds Present, Soft, Non Tender Extremities: No edema, Capillary Refill Less than 3 Seconds Skin: No rashes, No breakdown Musculoskeletal: No Tenderness to Palpation of Joints or Extremities Neurological: Cranial nerves II-XII grossly intact Psych/Mental Status: Normal Affect, Appropriate Microbiology Past 72 Hours 06/20/20 01:00 Mucosa - Nose SARS-CoV-2 Antigen (Rapid) - Final SARS-CoV-2 (COVID 19) 06/20/20 01:00 Mucosa - Nasopharyngeal Influenza Types A,B Direct FA (RAMIREZ) - Final Laboratory Results 06/20/20 00:50: WBC 5.3, RBC 4.89, Hgb 15.9, Hct 43.7, MCV 89.4, MCH 32.5 H, MCHC 36.4 H, RDW Std Deviation 44.8 H, RDW Coeff of Eh 13.7, Plt Count 90 L, MPV 11.6, Immature Gran % (Auto) 0.600, Neut % (Auto) 83.7 H, Lymph % (Auto) 8.5 L, [place] % (Auto) 7.0, Eos % (Auto) 0.0, Baso % (Auto) 0.2, Absolute Neuts (auto) 4.4, Absolute Lymphs (auto) 0.45 L, Nucleated RBC % 0, Differential Comment SCANNED, Platelet Estimate SLT 06/20/20 00:50: PT 13.4, INR 1.1, APTT 34.9 06/20/20 00:50: Sodium 134 L, Potassium 2.8 L, Chloride 96 L, Carbon Dioxide 33.0 H, Anion Gap 5, BUN 21 H, Creatinine 1.02, Estim Creat Clear Calc 55.80, Est GFR (MDRD) Af Amer 91, Est GFR (MDRD) Non-Af 75, BUN/Creatinine Ratio 20.6 H, Glucose 125 H, Calcium 8.4 L, Total Bilirubin 1.40 H, AST 35, ALT 28, Alkaline Phosphatase 52, Troponin I 0.022, Total Protein 6.9, Albumin 3.5, Globulin 3.4, Albumin/Globulin Ratio 1.0 06/20/20 00:50: Lactic Acid 1.1 06/20/20 02:15: Urine Color Yellow, Urine Clarity Clear, Urine pH 5.0, Ur Specific [place] 1.025, Urine Protein 30 H, Urine Glucose (UA) Normal, Urine Ketones 50 H, Urine Occult Blood 250 H, Urine Nitrite Negative, Urine Bilirubin Negative, Urine Urobilinogen 1 H, Ur Leukocyte Esterase Negative, Urine RBC 10-25 SEEN, Urine WBC 0-5 SEEN, Ur Squamous Epith Cells 0-5 SEEN, Urine Bacteria 2+, Urine Mucus 0 SEEN Assessment/Plan All Active Problems (Last Reviewed 06/20/20 @ 03:[address] Fabio Bartholomew MD) SARS pneumonia (Acute) COVID-19 (Acute) The patient is a 80 year old M with a significant history of atrial fibrillation; CAD status post stent who presents emergency department with altered mental status fall; productive cough; fatigue; and significant loss of taste with anorexia who was found to have a positive COVID-19 antigen and chest x-ray finding of bilateral opacities. Acute hypoxemic respiratory insufficiency secondary to SARS- COV 2 Reportedly her oxygen saturation was 87 % on room air at the emergency department. Patient required supplemental nasal cannula oxygen. Oxygen supplementation continued. T-max of 103 Fahrenheit. Rapid Covid antigen at the ED was positive. Impression of chest x-ray by radiologist: Suspected mild pulmonary edema. Mild cardiomegaly. Actual chest x-ray image was independently interpreted. Chest x-ray with mild to moderate interstitial infiltrates and increased cardiac silhouettes Patient is on Eliquis. Procalcitonin ordered Received dexamethasone IV at emergency department. Dexamethasone p.o. ordered. Liver biochemistry is normal. Of note his symptoms began less than 10 days ago. Creatinine clearance is appropriate. Remdesivir ordered. Tylenol for fever Mucinex ordered Trend CBC; and CMP Hypokalemia Replaced at the emergency department Trend BMP. Generalized weakness and fall Brain CT with no bleed. Likely secondary to COVID-19 PT and OT to work with patient Acute infectious encephalopathy Likely secondary to COVID-19 infection Treatments as above Hyperbilirubinemia Review of Emergency department labs showed bilirubin of 1.4. Review of old record showed that that this is chronic. Chronic A. fib Carvedilol continued Apixaban continued CAD status post stents NILO inhibitor and beta-michael continued High intensity statin continued Eliquis continued Hypertension Blood pressure is not within goal NILO inhibitor; and Coreg continue. Indapamide continued. Trend blood pressure and adjust blood pressure medications. DVT prophylaxis Not indicated since patient is on Eliquis. Eliquis continued Inpatient E&M: 21589 Init Hosp L3
[2020-06-20] MEDS: Potassium Chloride Oral Tablet 20 MEQ 60 MEQ PO (02:52)
[2020-06-20] MEDS: 0.9% Saline Lock 10 ML Syringe IV ×3 (04:08→18:20)
[2020-06-20] MEDS: guaiFENesin 1,200 MG Tablet 1200 MG PO ×3 (04:28→22:19)
[2020-06-20 04:44] LABS: Anion Gap 10 (5-15); BUN 20 mg/dL (7-18); BUN/Creat Ratio 23.4 RATIO (10-20); Calcium,Total 8.5 mg/dL (8.5-10.1); Chloride 96 mmol/L (98-107); Creatinine, Serum 0.85 mg/dL (0.70-1.30); EST Glomerular Filtration Rate 92 mL/min (>60); Est Glom Filt Rate - Afr Amer 112 mL/min (>60); Estimated Creatinine Clearance 69.29 ml/min; Glucose 133 mg/dL (74-106); Sodium Level 137 mmol/L (136-145)
[2020-06-20 04:54] LABS: Procalcitonin 0.18 ng/mL (0.00-0.09)
[2020-06-20] MEDS: Carvedilol 12.5 MG Tablet PO (08:30)
[2020-06-20] MEDS: Indapamide 2.5 MG Tablet 1.25 MG PO (08:33)
[2020-06-20] MEDS: APIXABAN 5 MG TABLET PO ×2 (08:33→22:19)
[2020-06-20] MEDS: Potassium Chloride Oral Tablet 20 MEQ 40 MEQ PO (08:33)
[2020-06-20] MEDS: Lisinopril 20 MG Tablet PO (08:34)
[2020-06-20 09:36] LABS: Magnesium 1.3 mg/dL (1.6-2.6)
--- NOTE | 2020-06-20 10:17 | PN_ITS ---
Patient Problems: Active and Suspected Problems (Last Reviewed 06/20/20 @ 03:[address] Fabio Bartholomew MD) SARS pneumonia (Acute) COVID-19 (Acute) Reason for Visit: Follow-up on altered mental status/COVID-19 infection Subjective: Patient was seen and examined. He feels much improved. He has not been on oxygen since admission. Admits to having some diarrhea days prior to admission. Denied any diarrhea while here. Has had one normal bowel movement. Objective: Physical exam: General: Alert, Oriented x3, Cooperative HEENT: Atraumatic, PERRLA, EOMI, Normocephalic Neck: Supple, No JVD, Negative Carotid Bruits Lungs: Diminished Cardiovascular: Normal S1, Normal S2, No murmurs, Irregular Rate Abdomen: Bowel Sounds Present, Soft, Non Tender Extremities: No edema, Capillary Refill Less than 3 Seconds Skin: No rashes, No breakdown Musculoskeletal: No Tenderness to Palpation of Joints or Extremities Neurological: Cranial nerves II-XII grossly intact Psych/Mental Status: Normal Affect, Appropriate Vitals/I&O's: Vital Signs Temp Pulse Resp BP Pulse Ox 97.7 F L 70 18 147/90 H 98 06/20/20 08:40 06/20/20 08:40 06/20/20 08:40 06/20/20 08:40 06/20/20 09:36 Oxygen Flow Rate (L/min) 2 Oxygen Delivery Method Room Air Weight: 96.3 kg Body Mass Index (BMI) 32.3 Intake and Output for Last 24 Hours 06/18/20 06/19/20 06/20/20 23:59 23:59 23:59 Intake Total 250 / 250 Output Total 300 / 300 Balance -50 / -50 Microbiology Past 72 Hours 06/20/20 01:00 Mucosa - Nose SARS-CoV-2 Antigen (Rapid) - Final SARS-CoV-2 (COVID 19) 06/20/20 01:00 Mucosa - Nasopharyngeal Influenza Types A,B Direct FA (RAMIREZ) - Final Laboratory Results 06/20/20 00:50: WBC 5.3, RBC 4.89, Hgb 15.9, Hct 43.7, MCV 89.4, MCH 32.5 H, MCHC 36.4 H, RDW Std Deviation 44.8 H, RDW Coeff of Eh 13.7, Plt Count 90 L, MPV 11.6, Immature Gran % (Auto) 0.600, Neut % (Auto) 83.7 H, Lymph % (Auto) 8.5 L, [place] % (Auto) 7.0, Eos % (Auto) 0.0, Baso % (Auto) 0.2, Absolute Neuts (auto) 4.4, Absolute Lymphs (auto) 0.45 L, Nucleated RBC % 0, Differential Comment SCANNED, Platelet Estimate SLT 06/20/20 00:50: PT 13.4, INR 1.1, APTT 34.9 06/20/20 00:50: Sodium 134 L, Potassium 2.8 L, Chloride 96 L, Carbon Dioxide 33.0 H, Anion Gap 5, BUN 21 H, Creatinine 1.02, Estim Creat Clear Calc 55.80, Est GFR (MDRD) Af Amer 91, Est GFR (MDRD) Non-Af 75, BUN/Creatinine Ratio 20.6 H , Glucose 125 H, Calcium 8.4 L, Total Bilirubin 1.40 H, AST 35, ALT 28, Alkaline Phosphatase 52, Troponin I 0.022, Total Protein 6.9, Albumin 3.5, Globulin 3.4, Albumin/Globulin Ratio 1.0 06/20/20 00:50: Lactic Acid 1.1 06/20/20 02:15: Urine Color Yellow, Urine Clarity Clear, Urine pH 5.0, Ur Specific [place] 1.025, Urine Protein 30 H, Urine Glucose (UA) Normal, Urine Ketones 50 H, Urine Occult Blood 250 H, Urine Nitrite Negative, Urine Bilirubin Negative, Urine Urobilinogen 1 H, Ur Leukocyte Esterase Negative, Urine RBC 10- 25 SEEN, Urine WBC 0-5 SEEN, Ur Squamous Epith Cells 0-5 SEEN, Urine Bacteria 2+, Urine Mucus 0 SEEN 06/20/20 04:05: Procalcitonin 0.18 H 06/20/20 04:05: Sodium 137, Potassium 3.0 L, Chloride 96 L, Carbon Dioxide 31.0, Anion Gap 10, BUN 20 H, Creatinine 0.85, Estim Creat Clear Calc 69.29, Est GFR (MDRD) Af Amer 112, Est GFR (MDRD) Non-Af 92, BUN/Creatinine Ratio 23.4 H, Glucose 133 H, Calcium 8.5 06/20/20 04:05: Magnesium 1.3 L Current Medications Acetaminophen (Acetaminophen 325 Mg Tablet) 650 mg PO Q6H PRN PRN PRN Reason: Pain Score 1-10/Temp > 100.7 F Apixaban (Apixaban 5 Mg Tablet) 5 mg PO BID [facility] Last Admin: 06/20/20 08:33 Dose: 5 mg Documented by: Atorvastatin Calcium (Atorvastatin Calcium 40 Mg Tablet) 40 mg PO DAILY@2200 [facility] Carvedilol (Carvedilol 12.5 Mg Tablet) 12.5 mg PO BID [facility] Dexamethasone (Dexamethasone 2 Mg Tablet) 6 mg PO DAILY [facility] Guaifenesin (Guaifenesin 1,200 Mg Tablet) 1,200 mg PO BID [facility] Last Admin: 06/20/20 08:33 Dose: 1,200 mg Documented by: Remdesivir 100 mg/ Sodium (Chloride) 250 mls @ 125 mls/hr IV DAILY@2200 [facility]; Protocol Stop: 06/23/20 23:59 Sodium Chloride () 250 mls @ 15 mls/hr IV .[id number] PRN PRN Reason: Saline Flush Last Admin: 06/20/20 06:28 Dose: 15 mls/hr Documented by: Sodium Chloride () 250 mls @ 15 mls/hr IV .[id number] PRN PRN Reason: Additional IVPB Infusion Indapamide (Indapamide 2.5 Mg Tablet) 1.25 mg PO QAM [facility] Last Admin: 06/20/20 08:33 Dose: 1.25 mg Documented by: Lisinopril (Lisinopril 20 Mg Tablet) 20 mg PO BID [facility] Last Admin: 06/20/20 08:34 Dose: 20 mg Documented by: Melatonin (Melatonin 3 Mg Tablet) 3 mg PO QHS PRN PRN PRN Reason: INSOMNIA Ondansetron HCl (Ondansetron 4 Mg/2 Ml Vial) 4 mg IV Q8H PRN PRN PRN Reason: NAUSEA/VOMITING Sodium Chloride (0.9% Saline Lock 10 Ml Syringe) 10 - 40 ml IV UD PRN PRN Reason: SALINE FLUSH Last Admin: 06/20/20 04:08 Dose: 10 ml Documented by: STROKE Vital Signs/Narrative: Vital Signs Temp Pulse Resp BP Pulse Ox Pulse Ox Pulse Ox 06/20/20 09:36 95 98 06/20/20 08:40 97.7 F L 70 18 147/90 H 98 06/20/20 08:03 93 Medical Necessity - Tobacco Use Smoking Status: Never smoker Assessment/Plan All Active Problems (Last Reviewed 06/20/20 @ 03:[address] Fabio Bartholomew MD) SARS pneumonia (Acute) COVID-19 (Acute) 1. Acute COVID-19 infection, in a patient who recently got his COVID-19 vaccination?[employer] on 05/30/20 No other sick contacts but admits to going out a couple of times without a mask Chest x-ray without acute infiltrates Patient was started on Decadron and Remdesivir 2. Hypokalemia/Hypomagnesemia, replaced, recheck in am 3. Acute metabolic encephalopathy secondary to #1 and 2, resolved 4. Recurrent falls, debility related to #1 and #2, improved, PT/OT to evaluate and treat 5. Chronic atrial fibrillation/CAD s/p stent/Hypertension/Hyperlipidemia, stable Continue with carvedilol, apixaban, lisinopril 6. DVT PPx- on Apixaban Inpatient E&M: 69944 Subs Hosp L2
--- NOTE | 2020-06-20 11:15 | CASEMGMT ---
RN CM called patient in room for initial transition planning/care coordination assessment. RN AGUS introduced self and role at [facility]. Patient is alert and oriented. Patient willing to participate in assessment and is able to answer all questions appropriately. Care providers, pharmacy, and demographics verified. Patient wishes to discharge home, denies need for home health at this time. Patient states he has no further needs or concerns at this time. CM to follow for discharge planning needs that may arise. PCP: Abdirizak Dillon Specialists: none [facility]erred [facility]acy: [facility] Insurance: [facility] [place] Prescription Benefit: yes Living Will/HPOA: yes, Cat Leonard LNOK: Living Arrangements: Patient lives with in a 2 story home. Patient states he is independent at home and able to ambulate stairs with railing. Patient states his is sick with CA and has been helping her. is isolating at home. Patient states that friends from [employer] have been bringing food. Transportation: self/ DME/HHC: Patient states he has cane and walker at home. Patient denies previous HHC or SNF. Currently on room air, will monitor for need for home oxygen at discharge. Disposition Plan: Patient to discharge home with family support and follow-up plans in place. Queenie CLAROS, RN, CM
[2020-06-20 11:36] LABS: Phosphorus 2.6 mg/dL (2.5-4.9)
[2020-06-20] MEDS: Magnesium Sulfate 4gm/100mL 4 GM/100 ML IV.SOLN. IV (12:12)
--- NOTE | 2020-06-20 12:37 | PCM.NTREPORT ---
Nutrition Therapy Report - History Current diet / nutrition support order:: regular diet - Anthropometric Measurements Height:: 5 ft 8 in Weight:: 96.3 kg Body Mass Index (BMI):: 32.3 - Relevant Labs Relevant Labs:: MCH 32.5 pg (27.0-32.0) H 06/20/20 00:50 MCHC 36.4 g/dL (32-36) H 06/20/20 00:50 RDW Std Deviation 44.8 fl (35.1-43.9) H 06/20/20 00:50 Plt Count 90 K/mm3 (150-450) L 06/20/20 00:50 Neut % (Auto) 83.7 % (47-70) H 06/20/20 00:50 Lymph % (Auto) 8.5 % (19-41) L 06/20/20 00:50 Absolute Lymphs (auto) 0.45 X10^3/uL (0.83-4.51) L 06/20/20 00:50 Sodium 134 mmol/L (136-145) L 06/20/20 00:50 Potassium 3.0 mmol/L (3.5-5.1) L 06/20/20 04:05 Chloride 96 mmol/L (98-107) L 06/20/20 04:05 Carbon Dioxide 33.0 mmol/L (21.0-32.0) H 06/20/20 00:50 BUN 20 mg/dL (7-18) H 06/20/20 04:05 BUN/Creatinine Ratio 23.4 RATIO (10-20) H 06/20/20 04:05 Glucose 133 mg/dL (74-106) H 06/20/20 04:05 Calcium 8.4 mg/dL (8.5-10.1) L 06/20/20 00:50 Magnesium 1.3 mg/dL (1.6-2.6) L 06/20/20 04:05 Total Bilirubin 1.40 mg/dL (0.20-1.00) H 06/20/20 00:50 Procalcitonin 0.18 ng/mL (0.00-0.09) H 06/20/20 04:05 - Assessment Food / Nutrition-Related History:: Currently in isolation d/t COVID-19. Spoke w/ pt via room phone. Pt w/ reported loss of taste, smell and decreased appetite x 1 week [employer]. States appetite was poor [employer] d/t feeling unwell. Pt states appetite is improving w/ fair intake at meals this date. Reported UBW 215#, CBW 212.3#-2.7#/1.2% wt loss x 1 week per pt. Noted edema which may be masking additional wt loss. - Nutrition Diagnosis Problem / Etiology / Signs & Symptoms (PES):: moderate, acute malnutrition r/t inadequate energy intake d/t COVID-19 infection as evidenced by estimated PO intake meeting <75% of estimated nutritional needs x 1 week, wt loss of 2.7#/1.2% x 1 week Evidence of Malnutrition Exists:: Yes Moderate PCM:: Acute Illness - Nutrition Intervention Nutrition Prescription:: [id number] calories/day (RMRx1.3). 76-96 g protein/day (0.8-1.0 g/kg). 2000mL fluid/day (1mL/calorie) - Food / Nutrient Delivery Interventions Summary of nutrition intervention:: Pt declines ONS at this time. States he is feeling/eating better than previously. Aware ONS available upon request. Nutrition support ordered as / adjusted to:: continue regular diet; ensure enlive w/ meals if PO intake at meals does not continue to improve. - MNT Monitoring Further MNT monitoring and evaluation required?: Yes MNT Follow-up in:: 3-5 days
[2020-06-20 14:04] LABS: Anion Gap 6 (5-15); BUN 18 mg/dL (7-18); BUN/Creat Ratio 16.4 RATIO (10-20); Calcium,Total 8.5 mg/dL (8.5-10.1); Chloride 97 mmol/L (98-107); EST Glomerular Filtration Rate 69 mL/min (>60); Est Glom Filt Rate - Afr Amer 83 mL/min (>60); Estimated Creatinine Clearance 53.55 ml/min; Glucose 272 mg/dL (74-106); Potassium 3.5 mmol/L (3.5-5.1); Sodium Level 134 mmol/L (136-145)
[2020-06-20] MEDS: 0.9% Normal Saline 1,000 ML 100 ML IV (18:20)
[2020-06-21] VITALS (7 sets, daily range): BP systolic 114–128; BP diastolic 51–100; PULSE 65–87; RESP 19–21; TEMP 36.6–36.8; O2SAT 95–97
[2020-06-21 04:54] LABS: Absolute Lymphocyte Count 0.56 X10^3/uL (0.83-4.51); Absolute Neutrophil Count 5.3 X10^3/uL (2.0-7.7); Basophil# 0.01 X10^3/uL; Basophil% 0.2 % (0-1); Differential Indicated SCAN CRITERIA MET; Hematocrit 42.7 % (40-54); Hemoglobin 15.1 g/dL (13.0-16.5); Lymphocyte # 0.56 X10^3/ul (4.0); Lymphocyte % 8.8 % (19-41); Mean Corp Hgb Conc 35.4 g/dL (32-36); Mean Corpuscular Hgb 31.9 pg (27.0-32.0); Mean Corpuscular Volume 90.3 fL (80-94); Mean Platelet Vol. 11.9 fl (6.2-12.0); Monocyte# 0.46 X10^3/uL; Monocyte% 7.2 % (0-10); NRBC Flagged by Analyzer 0 % (0-5); Neutrophil # 5.33 X10^3/uL (2.7-7.7); Neutrophil % 83.5 % (47-70); POSITIVE COUNT YES; POSITIVE DIFFERENTIAL YES; Platelet Count 88 K/mm3 (150-450); RBC Distribution Width CV 14.1 % (11.6-14.6); RBC Distribution Width SD 47.2 fl (35.1-43.9); Red Blood Count 4.73 M/mm3 (4.6-6.2); White Blood Count 6.4 K/mm3 (4.4-11.0)
[2020-06-21 05:10] LABS: AST(SGOT) 63 U/L (15-37); Alanine Aminotransfer ALT/SGPT 28 U/L (16-61); Albumin, Serum 2.9 g/dL (3.2-5.0); Alkaline Phosphatase 45 U/L (45-117); Anion Gap 4 (5-15); BUN 18 mg/dL (7-18); BUN/Creat Ratio 24.4 RATIO (10-20); Calcium,Total 8.2 mg/dL (8.5-10.1); Chloride 101 mmol/L (98-107); Creatinine, Serum 0.74 mg/dL (0.70-1.30); Differential Comment SCANNED; EST Glomerular Filtration Rate 109 mL/min (>60); Est Glom Filt Rate - Afr Amer 132 mL/min (>60); Glucose 138 mg/dL (74-106); Platelet Estimate SLT DEC (ADEQ); Potassium 3.5 mmol/L (3.5-5.1); Protein, Total 5.9 g/dL (6.4-8.2); Sodium Level 137 mmol/L (136-145)
[2020-06-21 07:47] LABS: Magnesium 2.1 mg/dL (1.6-2.6)
[2020-06-21] MEDS: guaiFENesin 1,200 MG Tablet 1200 MG PO (08:44)
[2020-06-21] MEDS: dexAMETHasone 2 MG TABLET 6 MG PO (08:44)
[2020-06-21] MEDS: APIXABAN 5 MG TABLET PO (08:44)
--- NOTE | 2020-06-21 10:38 | PCM.DC ---
- Discharge Diagnoses Current Active Problems: Current Active and Chronic Problems (Last Reviewed 06/20/20 @ 03:[address] Fabio Bartholomew MD) SARS pneumonia (Acute) COVID-19 (Acute) Pulmonary hypertension (Chronic) Sternal fracture (Chronic ~03/08/19) History of cardioversion (Chronic) failed Essential hypertension (Chronic) Hyperlipidemia (Chronic) Chronic atrial fibrillation (Chronic) Presence of stent in coronary artery (Chronic) 3.0 x 16mm Taxus II ALOK to dLCx 01/27/05 Atherosclerosis of coronary artery of [place] heart without angina pectoris (Chronic) 3.0 x 16mm Taxus II ALOK to dLCx 01/27/05 Reason(s) for Visit for Discharge Instructions: Altered mental status You will use the following diet at home:: Cardiac Your food should be the consistency of: Regular Your liquids should be the consistency of: Regular/Thin Discharge Activity: Return to Normal Activity Additional Instructions: Take note of changes in your medications. Measure your blood pressure daily and keep a log of it. Let your primary care doctor know when your blood pressure is more than 150/90. Continue to quarantine for 20 total days from start of your symptoms. Keep yourself hydrated. Weigh yourself every day. Allergies/Adverse Reactions: Allergies ezetimibe [From Vytorin] Allergy (Intermediate, Verified 06/20/20 00:53) Unknown simvastatin [From Vytorin] Allergy (Intermediate, Verified 06/20/20 00:53) Unknown surgical tape Adverse Reaction (Uncoded 06/20/20 00:53) Rash Medications to take at Discharge rosuvastatin 20 mg tablet 20 mg PO DAILY 10/03/18 apixaban 5 mg tablet 5 mg PO BID 10/05/18 dexAMETHasone [Dexamethasone] 6 mg PO DAILY 8 Days #8 tablet 06/21/20 Primary Care Physician: Abdirizak Dillon MD [Primary Care Provider] - Please follow up with your Primary Care Physician in: within 1-2 weeks Test Results: Test results from this visit will be discussed in further detail at your follow-up appointment, if applicable. Please Follow Up With: Rosi Rangel MD When: in 4 weeks Proposed Discharge Date: 06/21/20
--- NOTE | 2020-06-21 10:45 | CASEMGMT ---
Addendum entered by Cristina Cr 06/21/20 11:55: [facility] SOC will be either tomorrow or Wednesday. Call placed to both pt and his and updated on acceptance. Addendum entered by Cristina Cr 06/21/20 11:22: /pt both made aware, if they choose for pt to do OP therapy after he is out of COVID precautions, to discuss this with pt's PCP. The both voice understanding. Addendum entered by Cristina Cr 06/21/20 11:09: Per Dr Mcpherson, she just spoke w/pt and he is now agreeable to receiving therapy and asked ANGELA GOLDSMITH to discuss this with pt further re: if he would prefer HHC or OP therapy. Per Dr Mcpherson, if pt prefers OP therapy, she states it is okay for pt to begin therapy until after he is out of COVID precautions. Call placed to pt and discussed options of therapy again with pt, HHC vs OP therapy. Pt states he would be agreeable to HHC initially and then may want to do OP therapy after he is out of precautions. Reviewed list of local [facility] providers via the phone and also sent in a list of local [facility] providers including quality and resource use data and consistent with the patient's preferred geographic region, medical needs, and insurance network into pt's room. Pt states he has no preference and asked ANGELA GOLDSMITH to contact his . Call placed to pt's , Cat, at this time. She was made aware of above and reviewed list with her as well. She states [facility]. Call placed to Clari @ [facility] and referral made. Awaiting acceptance. Original Note: ANGELA GOLDSMITH NOTE: PT/OT evals have been reviewed and they recommend HHC. Call placed to pt at this time. Introduced self and role of ANGELA GOLDSMITH. Pt made aware of therapy recommendations for HHC and he declines HHC at this time. Pt states he went to OP therapy in the past @ [facility] and states he still has the exercise bands and remembers what he was instructed to do then. He states, I know what to do and if I need to do that, I can do it myself. Pt made aware, if he decides in the future that he would like HHC or OP therapy, that he can discuss this with his PCP. Pt voices understanding. He denies having any discharge needs. Maurisio MARMOLEJON RN CM
--- NOTE | 2020-06-21 11:55 | DS.PCM_ITS ---
Discharge Date and Diagnosis - Problem List Patient Problems: Active and Suspected Problems (Last Reviewed 06/20/20 @ 03:[address] Fabio Bartholomew MD) SARS pneumonia (Acute) COVID-19 (Acute) Date of Admission: 06/20/20 Date of Discharge: 06/21/20 - Primary Discharge Diagnosis Acute Problems: Active Problems (Last Reviewed 06/20/20 @ 03:[address] Fabio Bartholomew MD) Acute COVID-19 infection Hypokalemia Hypomagnesemia Recurrent falls Debility Malnutrition, moderate Episodes of hypotension - Secondary Discharge Diagnosis Chronic Problems: Chronic Problems (Last Reviewed 06/20/20 @ 03:[address] Fabio Bartholomew MD) Pulmonary hypertension (Chronic) Sternal fracture (Chronic ~03/08/19) History of cardioversion (Chronic) failed Essential hypertension (Chronic) Hyperlipidemia (Chronic) Chronic atrial fibrillation (Chronic) Presence of stent in coronary artery (Chronic) 3.0 x 16mm Taxus II ALOK to dLCx 01/27/05 Atherosclerosis of coronary artery of [place] heart without angina pectoris (Chronic) 3.0 x 16mm Taxus II ALOK to dLCx 01/27/05 Hospital Course and Treatment Imaging Results: Clinical Impression(s) from Imaging Studies Chest X-Ray 06/20/20 00:43 IMPRESSION: Suspected mild pulmonary edema. Mild cardiomegaly Electronically Signed: Rahat Starkey DO at 1:41 EDT Tel , Service support , Brain CT 06/20/20 00:44 IMPRESSION: Chronic involutional changes of the brain. Electronically Signed: Rahat Starkey DO at 1:43 EDT Tel , Service support , Operations: None Procedures: None Summary of Care Provided: The patient is a 80 year old M with past medical history of CAD status post stent, chronic atrial fibrillation, who presented with altered mental status, recurrent falls, cough, fatigue, loss of taste. Patient had his [employer] Steven vaccination on 05/30/20. He had the above symptoms that started a week prior. He has been falling; he stated that his legs gave out. He has had diarrhea, about 2 to 3 times a day. Patient was having fevers at home. The EMS was called and his pulse oximeter was 93%. In the emergency room, his temperature was 103 degree F. He subsequently was found to be 87% on room air. His work-up in the ED showed potassium of 2.8, sodium 134, white cell count was normal, chest x-ray showed cardiomegaly with some pulmonary edema. Troponins were negative. His COVID-19 rapid antigen was positive. Influenza screen was negative. He was admitted to the Covid unit, managed on IV Decadron, remdesivir. He was off oxygen a couple of hours. His electrolyte imbalances including magnesium replaced. Patient had transient episodes of hypotension requiring discontinuation of his blood pressure medications and IV fluids. His orthostatic vitals at discharge were negative. Patient was kept off his blood pressure medication. He was told to continue to monitor his blood pressure every day and let his primary care doctor know when is more than 150. This was also relayed to his on phone. He was asked to complete 20 days of quarantine and complete Decadron to make a total of 10 days. Patient Problems: Active and Suspected Problems (Last Reviewed 06/20/20 @ 03:[address] Fabio Bartholomew MD) SARS pneumonia (Acute) COVID-19 (Acute) Subjective: On the day of discharge, patient was seen and examined. Denied any new complaints. Weaned off oxygen. Denied any fever or chills. No more diarrhea. Objective: Physical exam: General: Alert, Oriented x3, Cooperative HEENT: Atraumatic, PERRLA, EOMI, Normocephalic Neck: Supple, No JVD, Negative Carotid Bruits Lungs: Diminished Cardiovascular: Normal S1, Normal S2, No murmurs, Irregular Rate Abdomen: Bowel Sounds Present, Soft, Non Tender Extremities: No edema, Capillary Refill Less than 3 Seconds Skin: No rashes, No breakdown Musculoskeletal: No Tenderness to Palpation of Joints or Extremities Neurological: Cranial nerves II-XII grossly intact Psych/Mental Status: Normal Affect, Appropriate - Physical Exam Vitals/I&O's: Vital Signs Temp Pulse Resp BP Pulse Ox 98.2 F 71 20 H 114/51 L 96 06/21/20 08:36 06/21/20 10:25 06/21/20 08:36 06/21/20 10:25 06/21/20 08:36 Oxygen Flow Rate (L/min) 2 Oxygen Delivery Method Room Air Weight: 96.3 kg Body Mass Index (BMI) 32.3 Orthostatic Vital Signs Start: 06/21/20 09:14 Freq: q24h Status: Active Protocol: Activity Type Activity Date Activity User E-Sign Co-Sign Detail Recorded Client Recorded Date Recorded By Document 06/21/20 10:25 [facility] [id number] 06/21/20 10:29 [facility] 06/21/20 10:25 Orthostatic Vitals Standing -Blood Pressure (90/60-120/80) 120/84 H -Extremity Use Right Arm -Pulse Rate (60-100) 85 Sitting -Blood Pressure (90/60-120/80) 121/56 H -Extremity Use Right Arm -Pulse Rate (60-100) 87 Lying -Blood Pressure (90/60-120/80) 114/51 L -Extremity Use Right Arm -Pulse Rate (60-100) 71 Intake and Output for Last 24 Hours 06/19/20 06/20/20 06/21/20 23:59 23:59 23:59 Intake Total 1626.92 / 1626.92 1598.33 / 1598.33 Output Total 700 / 700 950 / 950 Balance 926.92 / 926.92 648.33 / 648.33 Microbiology Past 72 Hours 06/20/20 02:15 Urine, Clean Catch Urine Culture - Preliminary Culture exhibits no growth. 06/20/20 01:00 Mucosa - Nose SARS-CoV-2 Antigen (Rapid) - Final SARS-CoV-2 (COVID 19) 06/20/20 01:00 Mucosa - Nasopharyngeal Influenza Types A,B Direct FA (RAMIREZ) - Final Laboratory Results 06/20/20 13:30: Sodium 134 L, Potassium 3.5, Chloride 97 L, Carbon Dioxide 31.0, Anion Gap 6, BUN 18, Creatinine 1.10, Estim Creat Clear Calc 53.55, Est GFR (MDRD) Af Amer 83, Est GFR (MDRD) Non-Af 69, BUN/Creatinine Ratio 16.4, Glucose 272 H, Calcium 8.5 06/21/20 04:45: WBC 6.4, RBC 4.73, Hgb 15.1, Hct 42.7, MCV 90.3, MCH 31.9, MCHC 35.4, RDW Std Deviation 47.2 H, RDW Coeff of Eh 14.1, Plt Count 88 L, MPV 11.9, Immature Gran % (Auto) 0.300, Neut % (Auto) 83.5 H, Lymph % (Auto) 8.8 L, Piute % (Auto) 7.2, Eos % (Auto) 0.0, Baso % (Auto) 0.2, Absolute Neuts (auto) 5.3, Absolute Lymphs (auto) 0.56 L, Nucleated RBC % 0, Differential Comment SCANNED, Platelet Estimate SLT 06/21/20 04:45: Sodium 137, Potassium 3.5, Chloride 101, Carbon Dioxide 32.0, Anion Gap 4 L, BUN 18, Creatinine 0.74, Estim Creat Clear Calc 58.90, Est GFR (MDRD) Af Amer 132, Est GFR (MDRD) Non-Af 109, BUN/Creatinine Ratio 24.4 H, Glucose 138 H, Calcium 8.2 L, Total Bilirubin 0.80, AST 63 H, ALT 28, Alkaline Phosphatase 45, Total Protein 5.9 L, Albumin 2.9 L, Globulin 3.0, Albumin/Globulin Ratio 1.0 06/21/20 04:45: Magnesium 2.1 Current Medications Acetaminophen (Acetaminophen 325 Mg Tablet) 650 mg PO Q6H PRN PRN PRN Reason: Pain Score 1-10/Temp > 100.7 F Apixaban (Apixaban 5 Mg Tablet) 5 mg PO BID [facility] Last Admin: 06/21/20 08:44 Dose: 5 mg Documented by: Atorvastatin Calcium (Atorvastatin Calcium 40 Mg Tablet) 40 mg PO DAILY@2200 [facility] Last Admin: 06/20/20 22:30 Dose: Not Given Documented by: Dexamethasone (Dexamethasone 2 Mg Tablet) 6 mg PO DAILY [facility] Last Admin: 06/21/20 08:44 Dose: 6 mg Documented by: Guaifenesin (Guaifenesin 1,200 Mg Tablet) 1,200 mg PO BID [facility] Last Admin: 06/21/20 08:44 Dose: 1,200 mg Documented by: Sodium Chloride () 250 mls @ 15 mls/hr IV .[id number] PRN PRN Reason: Saline Flush Last Infusion: 06/21/20 06:28 Dose: Infused Documented by: Sodium Chloride () 250 mls @ 15 mls/hr IV .[id number] PRN PRN Reason: Additional IVPB Infusion Indapamide (Indapamide 2.5 Mg Tablet) 1.25 mg PO QAM [facility] Last Admin: 06/20/20 08:33 Dose: 1.25 mg Documented by: Lisinopril (Lisinopril 20 Mg Tablet) 20 mg PO BID [facility] Last Admin: 06/20/20 08:34 Dose: 20 mg Documented by: Melatonin (Melatonin 3 Mg Tablet) 3 mg PO QHS PRN PRN PRN Reason: INSOMNIA Ondansetron HCl (Ondansetron 4 Mg/2 Ml Vial) 4 mg IV Q8H PRN PRN PRN Reason: NAUSEA/VOMITING Sodium Chloride (0.9% Saline Lock 10 Ml Syringe) 10 - 40 ml IV UD PRN PRN Reason: SALINE FLUSH Last Admin: 06/20/20 18:20 Dose: 10 ml Documented by: Discharge Diet: Low fat/ Low Cholesterol, 2000 mg Sodium Diet Discharge Activity: Return to Normal Activity Home Medications: Medications to take at Discharge rosuvastatin 20 mg tablet 20 mg PO DAILY 10/03/18 apixaban 5 mg tablet 5 mg PO BID 10/05/18 dexAMETHasone [Dexamethasone] 6 mg PO DAILY 8 Days #8 tablet 06/21/20 Following Prescriptions Were Given to Patient: dexAMETHasone [Dexamethasone] 6 mg PO DAILY 8 Days #8 tablet Transmission Status: Received by [facility] Primary Care Physician: Abdirizak Dillon MD [Primary Care Provider] - Please follow up with your Primary Care Physician in: within 1-2 weeks Please Follow Up With: Rosi Rangel MD When: in 4 weeks Disposition: Home Minutes spent on discharge:: 40 Patient Condition:: Stable Medical Necessity - Tobacco Use Smoking Status: Never smoker Tobacco Use: Non-smoker Meaningful Use Info Meaningful Use Diagnoses (Choose all that apply): None applicable Inpatient E&M: 31845 Disch Hosp
--- NOTE | 2020-06-24 14:36 | CASEMGMT ---
ANGELA GOLDSMITH Discharge Follow-up Phone Call: MAURI: Lyn Strata: 1 Call Date: 06/24/20 Discharge Date: 06/21/20 Time of Call: 1435 Duration: 3 min Admitting Diagnosis: Covid ANGELA GOLDSMITH completed follow-up phone call after recent hospitalization. Patient states he is doing well and isolating at home. Patient states he has no questions regarding discharge instructions. Patient states he was able to fill prescriptions without any issues. Patient states he had phone follow-up with PCP today. Patient states that [facility] is currently at his home for therapy. Patient had no further questions or concerns at this time.
== END 2020-06-21 14:30 | disposition home or self-care (01) | DRG 177 ==
LOC: ED 01:26 → ICU 03:06
PROVIDERS: Admitting Provider Hospitalist; Emergency Provider Emergency Medicine; PCP Family Medicine; Visit Provider Internal Medicine
DX: U07.1 COVID-19 (principal); J12.82 Pneumonia due to coronavirus disease 2019; G93.41 Metabolic encephalopathy; E44.0 Moderate protein-calorie malnutrition; J81.1 Chronic pulmonary edema; I48.20 Chronic atrial fibrillation, unspecified; R17 Unspecified jaundice; I95.9 Hypotension, unspecified; R09.02 Hypoxemia; E78.5 Hyperlipidemia, unspecified; E83.42 Hypomagnesemia; E87.6 Hypokalemia; I10 Essential (primary) hypertension; I25.10 Atherosclerotic heart disease of native coronary artery without angina pectoris; I27.20 Pulmonary hypertension, unspecified; E78.00 Pure hypercholesterolemia, unspecified; N40.0 Benign prostatic hyperplasia without lower urinary tract symptoms; Z68.34 Body mass index [BMI] 34.0-34.9, adult; Z95.5 Presence of coronary angioplasty implant and graft; Z87.442 Personal history of urinary calculi; W19.XXXA Unspecified fall, initial encounter; Z91.81 History of falling; Y92.9 Unspecified place or not applicable; Y93.9 Activity, unspecified; Z79.01 Long term (current) use of anticoagulants; Z79.899 Other long term (current) drug therapy
CPT/HCPCS: 70450; 71045; 80048; 80053; 81001; 83605; 83735; 84100; 84145; 84484; 85025; 85610; 85730; 87040; 87086; 87426; 87804; 93005; 97162; 97166; 99285; J7030; J7040; J7050; P9612; A4216

== ENCOUNTER 2020-07-02 18:18 | Outpatient (RCR) | payer MEDICARE, OTHER, SELFPAY ==
[2020-06-20 12:42] VITALS: BMI 32.3
[2020-07-02 18:30] LABS: Color, Urine Yellow (Yellow); Glucose, Dipstick Normal (Normal); Ketone-Dipstick Negative (Negative); Leukocyte Esterase-Dipstick Negative /ul (Negative); Nitrite-Dipstick Negative (Negative); Occult Blood-Urine Negative /ul (Negative); Protein-Dipstick Negative (Negative); Urine Bilirubin Dipstick Negative (Negative); Urine Clarity Clear (Clear); Urine Urobilinogen 1 mg/dl (Normal)
== END 2020-07-19 23:59 ==
LOC: HHLAB 18:18
PROVIDERS: PCP Family Medicine; Visit Provider Family Medicine
DX: N39.0 Urinary tract infection, site not specified (principal)
CPT/HCPCS: 81002; 87086; 87088

== ENCOUNTER → 2020-07-03 16:56 | Outpatient (CLI) | payer MEDICARE, OTHER, SELFPAY ==
[2020-06-20 12:42] VITALS: BMI 32.3
[2020-07-03 17:40] LABS: Hematocrit 46.7 % (40-54); Hemoglobin 15.8 g/dL (13.0-16.5); Mean Corp Hgb Conc 33.8 g/dL (32-36); Mean Corpuscular Hgb 31.7 pg (27.0-32.0); Mean Corpuscular Volume 93.8 fL (80-94); Mean Platelet Vol. 11.3 fl (6.2-12.0); Platelet Count 150 K/mm3 (150-450); RBC Distribution Width CV 14.9 % (11.6-14.6); RBC Distribution Width SD 50.9 fl (35.1-43.9); Red Blood Count 4.98 M/mm3 (4.6-6.2); White Blood Count 7.6 K/mm3 (4.4-11.0)
[2020-07-03 18:45] LABS: ALB/GLOB Ratio 0.9 RATIO (0.9-2.4); AST(SGOT) 22 U/L (15-37); Alanine Aminotransfer ALT/SGPT 27 U/L (16-61); Albumin, Serum 3.2 g/dL (3.2-5.0); Alkaline Phosphatase 56 U/L (45-117); Anion Gap 4 (5-15); BUN 15 mg/dL (7-18); BUN/Creat Ratio 16.2 RATIO (10-20); CRP 9.84 mg/L (0.0-3.0); Calcium,Total 9.1 mg/dL (8.5-10.1); Chloride 103 mmol/L (98-107); Creatinine, Serum 0.92 mg/dL (0.70-1.30); EST Glomerular Filtration Rate 84 mL/min (>60); Est Glom Filt Rate - Afr Amer 102 mL/min (>60); Globulin 3.4 g/dL (2.2-4.2); Glucose 82 mg/dL (74-106); Protein, Total 6.6 g/dL (6.4-8.2); Sodium Level 137 mmol/L (136-145)
== END ==
PROVIDERS: PCP Family Medicine; Referring Provider Family Medicine; Visit Provider Family Medicine
DX: N41.0 Acute prostatitis (principal)
CPT/HCPCS: 36415; 80053; 85027; 86140

== ENCOUNTER → 2020-08-01 05:53 | Outpatient (CLI) | payer MEDICARE, OTHER, SELFPAY ==
[2020-07-19 10:52] VITALS: BMI 33.1
--- NOTE | 2020-08-01 08:18 | STRESSREP ---
Stress Test Report Date: 08-01-2020 Procedure: Pharmacologic stress nuclear imaging study Indications: Shortness of breath/dyspnea on exertion; CAD; PCI Consent: Per the patient Procedure: The patient underwent pharmacologic (Regadenoson 0.4mg ) evaluation with a peak heart rate of 95 beats per minute (66%predicted maximal heart rate) and a peak blood pressure of 122/86 mmHg. The baseline ECG demonstrated atrial fibrillation. The peak pharmacologic ECG demonstrated no obvious ECG changes. There was a rare PVC during recovery. There was no complaint of chest discomfort during pharmacologic infusion or recovery. The examination was discontinued secondary to completion of protocol. Impression: 1. Pharmacologic (Regadenoson) evaluation 2. Peak pharmacologic ECG with no obvious ECG changes. 3. There was a rare PVC during recovery. 4. Nuclear images pending Myocardial perfusion imaging study: Technique: The patient was injected with 11.9 millicuries of technetium 99m Cardiolite and subsequently rest SPECT Cardiolite nuclear imaging was obtained in the horizontal long, vertical long, and short axis views. The patient underwent pharmacologic (Regadenoson) evaluation with a peak heart rate of 95 beats per minute (66% percent predicted maximal heart rate) and a peak blood pressure of 122/86 mmHg. The patient was injected with 33.4 millicuries of technetium 99m Cardiolite and subsequently stress SPECT Cardiolite nuclear imaging was obtained in the horizontal long, vertical long, and short axis views. A gated Cardiolite study at peak stress was obtained. Interpretation: Rest and stress SPECT Cardiolite nuclear imaging status post realignment, normalization, and attenuation correction demonstrate a small area of diminished myocardial perfusion/tracer uptake near the apical segments without significant change between rest and stress. There is end systolic thickening and brightening. The gated Cardiolite study demonstrates myocardial thickening and inward wall motion. The reported LVEF is 72%. Impression: 1. Rest and stress SPECT cardiac nuclear imaging demonstrate myocardial perfusion changes appearing compatible with an element of physiologic apical thinning with no myocardial perfusion changes considered diagnostic for associated stress-induced myocardial ischemia. 2. The gated Cardiolite study reports an LVEF of 72%. This note was generated with [email or web address] software. It may contain incorrect words, spelling, and punctuation that were not noted in checking the note before signing.
== END ==
PROVIDERS: PCP Family Medicine; Referring Provider Physician Assistant Medical; Visit Provider Physician Assistant Medical
DX: R06.00 Dyspnea, unspecified (principal); I25.10 Atherosclerotic heart disease of native coronary artery without angina pectoris
CPT/HCPCS: 78452; 93017; A9500; A4216; J2785

== ENCOUNTER → 2020-11-04 10:22 | Outpatient (CLI) | payer MEDICARE, OTHER, SELFPAY ==
[2020-10-18 11:10] VITALS: BMI 32.2
[2020-11-04 12:03] LABS: Absolute Lymphocyte Count 1.03 X10^3/uL (0.83-4.51); Absolute Neutrophil Count 3.3 X10^3/uL (2.0-7.7); Basophil# 0.02 X10^3/uL; Basophil% 0.4 % (0-1); Eosinophil# 0.36 X10^3/uL; Eosinophils% 6.9 % (0-5); Hematocrit 47.9 % (40-54); Hemoglobin 15.8 g/dL (13.0-16.5); Lymphocyte # 1.03 X10^3/ul (0.83-4.51); Lymphocyte % 19.8 % (19-41); Mean Corpuscular Hgb 29.5 pg (27.0-32.0); Mean Corpuscular Volume 89.4 fL (80-94); Mean Platelet Vol. 11.6 fl (6.2-12.0); Monocyte# 0.44 X10^3/uL; Monocyte% 8.5 % (0-10); NRBC Flagged by Analyzer 0 % (0-5); Neutrophil # 3.33 X10^3/uL (2.7-7.7); Platelet Count 159 K/mm3 (150-450); RBC Distribution Width CV 14.6 % (11.6-14.6); RBC Distribution Width SD 47.8 fl (35.1-43.9); Red Blood Count 5.36 M/mm3 (4.6-6.2); White Blood Count 5.2 K/mm3 (4.4-11.0)
[2020-11-04 12:36] LABS: ALB/GLOB Ratio 1.1 RATIO (0.9-2.4); AST(SGOT) 17 U/L (15-37); Alanine Aminotransfer ALT/SGPT 24 U/L (16-61); Albumin, Serum 3.5 g/dL (3.2-5.0); Alkaline Phosphatase 83 U/L (45-117); Anion Gap 5 (5-15); BUN 15 mg/dL (7-18); BUN/Creat Ratio 17.4 RATIO (10-20); Calcium,Total 8.7 mg/dL (8.5-10.1); Chloride 107 mmol/L (98-107); Creatinine, Serum 0.86 mg/dL (0.70-1.30); EST Glomerular Filtration Rate 91 mL/min (>60); Est Glom Filt Rate - Afr Amer 110 mL/min (>60); Globulin 3.2 g/dL (2.2-4.2); Glucose 111 mg/dL (74-106); Potassium 4.2 mmol/L (3.5-5.1); Protein, Total 6.7 g/dL (6.4-8.2); Sodium Level 140 mmol/L (136-145)
== END ==
PROVIDERS: PCP Family Medicine; Referring Provider Family Medicine; Visit Provider Family Medicine
DX: I10 Essential (primary) hypertension (principal); R53.83 Other fatigue
CPT/HCPCS: 36415; 80053; 84443; 85025

== ENCOUNTER 2020-11-21 08:22 | Outpatient (RCR) | payer MEDICARE, OTHER, SELFPAY ==
--- NOTE | 2021-04-07 16:25 | HP.OT.NRP ---
JOSSE TIRADO was seen in my office for initial evaluation on 11/21/20. The following Plan of Care was established for this patient: Anticipated Interventions: Education re Diagnosis, Education re Life-long lymphedema Management, Education re Skin Care and Precautions, Education re Correct Donning Tech,Care&Wearing Sched Comp Garments, Home Program This patient was last seen in our office 11/21/20. Pertinent comments regarding their Occupational therapy will appear below: pt last seen for initial eval only-no follow up was scheduled due to time lapse in services pt d/c. At this point I will be discontinuing this patient from occupational therapy. I would be happy to see this patient again in the future if found appropriate by the physician. Thank you! Anel Miramontes, OTR/L, CHT
== END 2020-11-21 19:00 | disposition home or self-care (01) ==
LOC: OT 08:22
PROVIDERS: PCP Family Medicine; Referring Provider Family Medicine; Visit Provider Family Medicine
DX: M79.89 Other specified soft tissue disorders (principal)
CPT/HCPCS: 97166

== ENCOUNTER → 2021-02-03 | Outpatient (CLI) | payer MEDICARE, OTHER, SELFPAY ==
--- NOTE | 2021-02-03 10:30 | TOBX_PTH ---
PATIENT: JOSSE TIRADO LOC: [facility] U#:[id number] AGE/SX: 80/M ROOM: RE02/03/[address]: Dr. Yves Tamayo MD : [id number] BED: DIS: 02/03/2021 SPEC #: [id number] RECD: 02/04/21 07:39 STATUS: ROXANA REOlman #: [id number] RIVER: 02/03/21 10:[address]: Yves Tamayo DEPT: SURGICAL PATHOLOGY RECD BY: Diane Saldivar ENTERED: 02/04/21 07:41 SP TYPE: TONGUE BX OTHR DR: Dr. 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 AM:ambrocio 02/05/2021 COMMENT Case has been reviewed in consultation with Dr. Moran who concurs with the above diagnosis. IDC:[id number] MICROSCOPIC DESCRIPTION Slides are reviewed. GROSS DESCRIPTION Received in fixative is one container labeled with the patient's name and designated left lateral tongue lesion. The specimen consists of a piece of alfaro mucosal tissue measuring 0.3 x 0.2 x 0.1 cm. The entire specimen is submitted in one cassette. / NICHOLE:ambrocio 02/04/21 TC:0 CPT: 90649 ADDENDUM ADDENDUM ADDENDUM ADDENDUM ADDENDUM ADDENDUM ADDENDUM ADDENDUM ADDENDUM ADDENDUM ADDENDUM 06/19/2021 09:52 ADDENDUM 06/19/2021 09:52 ADDENDUM 06/19/2021 09:52 ADDENDUM 06/19/2021 09:52 ADDENDUM 06/19/2021 09:52 This addendum is added to incorporate an outside pathology consultation report. The case was examined at [facility] (#[id number]) and the following diagnosis was rendered. 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 Please see complete above mentioned consultation report in EMR
== END | disposition home or self-care (01) ==
LOC: LABSPEC 15:28
PROVIDERS: PCP Family Medicine; Visit Provider Otolaryngology
DX: D37.02 Neoplasm of uncertain behavior of tongue (principal)
CPT/HCPCS: 88305

== ENCOUNTER → 2021-02-19 07:47 | Outpatient (CLI) | payer MEDICARE, OTHER, SELFPAY ==
--- NOTE | 2021-02-19 08:01 | CT_ITS ---
HISTORY: NECK PAIN. TECHNIQUE: Helically acquired images were obtained of the neck following IV contrast. A radiation dose optimization technique was used for this scan. IV Contrast dosage and agent: 100 mL Isovue-370. # of images incl. paperwork: 311. COMPARISON: None. FINDINGS: NASOPHARYNX: Unremarkable. SUPRAHYOID NECK: Limited examination of the oral cavity secondary to artifact from dental amalgam. Small left tonsillar calcification. Unremarkable oropharynx, parapharyngeal space, and retropharyngeal space. Scattered small lymph nodes. INFRAHYOID NECK: Unremarkable larynx, hypopharynx, and supraglottis. THYROID AND SALIVARY GLANDS: Homogeneous thyroid and submandibular glands. 1.4 cm round nodule in the superficial lobe of the right parotid. VASCULAR STRUCTURES: Carotid atherosclerosis. Retropharyngeal course of the right carotid. PARANASAL SINUSES: Very small maxillary sinus mucous retention cysts. MASTOID AIR CELLS: Clear. OSSEOUS STRUCTURES: No acute fracture or dislocation in the cervical spine. No destructive osseous lesion. Posterior disc bulge osteophyte complexes in the cervical spine with mild-moderate central canal stenosis from C3-4 through C6-7. LUNG APICES: Clear. CT/Soft Tissue Neck WITH Contrast IMPRESSION: 1.4 cm lesion in the right parotid gland. Diagnostic considerations include benign mixed tumor, Warthin tumor, or pathologic lymphadenopathy. Individualized dose optimization techniques were used for this CT. at 1404 Reported and signed by: Zarina Gill MD Electronically Signed: Zarina Gill MD at 14:03 EST Tel , Service support ,
[2021-02-19 08:30] LABS: CREATININE FINGERSTICK 0.7 mg/dL (0.70-1.30); EGFR FINGERSTICK > 60.0000 mL/min (>60)
== END ==
PROVIDERS: PCP Family Medicine; Referring Provider Otolaryngology; Visit Provider Otolaryngology
DX: M54.2 Cervicalgia (principal); D37.02 Neoplasm of uncertain behavior of tongue
CPT/HCPCS: 70491; Q9967

== ENCOUNTER → 2021-12-16 | Outpatient (CLI) | payer MEDICARE, OTHER, SELFPAY ==
[2021-12-16 15:17] LABS: Absolute Lymphocyte Count 0.92 X10^3/uL (0.83-4.51); Absolute Neutrophil Count 4.5 X10^3/uL (2.0-7.7); Basophil# 0.02 X10^3/uL; Basophil% 0.3 % (0-1); Eosinophil# 0.18 X10^3/uL; Hematocrit 47.3 % (40-54); Hemoglobin 15.7 g/dL (13.0-16.5); Lymphocyte # 0.92 X10^3/ul (0.83-4.51); Lymphocyte % 15.2 % (19-41); Mean Corp Hgb Conc 33.2 g/dL (32-36); Mean Corpuscular Hgb 30.7 pg (27.0-32.0); Mean Corpuscular Volume 92.4 fL (80-94); Mean Platelet Vol. 12.1 fl (6.2-12.0); Monocyte# 0.49 X10^3/uL; Monocyte% 8.1 % (0-10); NRBC Flagged by Analyzer 0 % (0-5); Neutrophil # 4.45 X10^3/uL (2.7-7.7); Neutrophil % 73.2 % (47-70); Platelet Count 156 K/mm3 (150-450); RBC Distribution Width CV 15.1 % (11.6-14.6); RBC Distribution Width SD 51.6 fl (35.1-43.9); Red Blood Count 5.12 M/mm3 (4.6-6.2); White Blood Count 6.1 K/mm3 (4.4-11.0)
[2021-12-16 15:46] LABS: Vitamin B12 275 pg/mL (211-911)
[2021-12-16 15:48] LABS: Microalbumin:Creatinine Ratio 64.8 mg/g CRE (<30 mg/g CRE)
[2021-12-16 16:06] LABS: ALB/GLOB Ratio 1.1 RATIO (0.9-2.4); AST(SGOT) 17 U/L (15-37); Alanine Aminotransfer ALT/SGPT 20 U/L (16-61); Albumin, Serum 3.5 g/dL (3.2-5.0); Alkaline Phosphatase 81 U/L (45-117); Anion Gap 5 (5-15); BUN 15 mg/dL (7-18); BUN/Creat Ratio 16.1 RATIO (10-20); Chloride 107 mmol/L (98-107); Creatinine, Serum 0.93 mg/dL (0.70-1.30); EST Glomerular Filtration Rate 83 mL/min (>60); Est Glom Filt Rate - Afr Amer 100 mL/min (>60); Globulin 3.2 g/dL (2.2-4.2); Glucose 102 mg/dL (74-106); PSA,Total - Annual Screen 5.23 ng/mL (0.00-4.00); Potassium 4.2 mmol/L (3.5-5.1); Protein, Total 6.7 g/dL (6.4-8.2); Sodium Level 142 mmol/L (136-145); Thyroid Stim Hormone (TSH) 1.76 uIU/mL (0.358-3.74)
== END | disposition home or self-care (01) ==
LOC: MFPLAB 11:52
PROVIDERS: PCP Family Medicine; Referring Provider Family Medicine; Visit Provider Family Medicine
DX: Z00.00 Encounter for general adult medical examination without abnormal findings (principal); E78.5 Hyperlipidemia, unspecified; Z12.5 Encounter for screening for malignant neoplasm of prostate
CPT/HCPCS: 36415; 80053; 82043; 82570; 82607; 82746; 84153; 84443; 85025; G0103

== ENCOUNTER → 2021-12-24 | Outpatient (CLI) | payer MEDICARE, OTHER, SELFPAY ==
--- NOTE | 2021-12-24 08:06 | US_ITS ---
STUDY: SCROTUM ULTRASOUND REASON FOR EXAM: Male, 81 years old. Left testicle is larger than the right. TECHNIQUE: Ultrasound evaluation of the scrotum was performed with color Doppler and static black-scale imaging. COMPARISON: None. FINDINGS: RIGHT TESTICLE INTRATESTICULAR: There is a normal size of the right testicle. The right testicle measures 3.7 cm x 2.7 cm x 2.3 cm. There is a homogenous echotexture. There is normal arterial and normal venous vascularity. There is no demonstrated right testicular mass or cyst. EXTRATESTICULAR: The epididymis is normal in size. The epididymis head measures 0.7 cm x 1 cm x 0.8 cm. There is normal vascularity of the epididymis. There is no demonstrated epididymal cystic structure. There is a small hydrocele. There is no demonstrated varicocele. There is no demonstrated extratesticular mass or cyst. LEFT TESTICLE INTRATESTICULAR: There is a normal size of the left testicle. The left testicle measures 3.8 cm x 2.6 cm x 2.7 cm. There is a homogenous echotexture. There is normal arterial and normal venous vascularity. There is no demonstrated left testicular mass or cyst. EXTRATESTICULAR: The epididymis is normal in size. The epididymis head measures 0.7 cm x 1.2 cm x 0.9 cm. There is normal vascularity of the epididymis. There is no demonstrated epididymal cystic structure. There is a large hydrocele. There is no demonstrated varicocele. There is no demonstrated extratesticular mass or cyst. US/Testicular with Arterial Flow IMPRESSION: Bilateral hydroceles left greater than right. Electronically Signed: Wily Harden MD at 15:27 EDT ,
== END | disposition home or self-care (01) ==
PROVIDERS: PCP Family Medicine; Referring Provider Family Medicine; Visit Provider Family Medicine
DX: N50.89 Other specified disorders of the male genital organs (principal)
CPT/HCPCS: 76870; 93976

== ENCOUNTER → 2022-01-12 | Outpatient (CLI) | payer MEDICARE, OTHER, SELFPAY ==
[2022-01-12 12:32] LABS: Hematocrit 46.5 % (40-54); Hemoglobin 15.7 g/dL (13.0-16.5); Mean Corp Hgb Conc 33.8 g/dL (32-36); Mean Corpuscular Hgb 30.7 pg (27.0-32.0); Mean Platelet Vol. 11.8 fl (6.2-12.0); Platelet Count 204 K/mm3 (150-450); RBC Distribution Width CV 14.2 % (11.6-14.6); RBC Distribution Width SD 47.4 fl (35.1-43.9); Red Blood Count 5.11 M/mm3 (4.6-6.2); White Blood Count 6.2 K/mm3 (4.4-11.0)
[2022-01-12 13:23] LABS: ALB/GLOB Ratio 0.9 RATIO (0.9-2.4); AST(SGOT) 16 U/L (15-37); Alanine Aminotransfer ALT/SGPT 18 U/L (16-61); Albumin, Serum 3.2 g/dL (3.2-5.0); Alkaline Phosphatase 82 U/L (45-117); Anion Gap 4 (5-15); BUN 14 mg/dL (7-18); Calcium,Total 9.2 mg/dL (8.5-10.1); Chloride 106 mmol/L (98-107); Creatinine, Serum 0.82 mg/dL (0.70-1.30); EST Glomerular Filtration Rate 96 mL/min (>60); Est Glom Filt Rate - Afr Amer 116 mL/min (>60); Globulin 3.5 g/dL (2.2-4.2); Glucose 101 mg/dL (74-106); Potassium 4.3 mmol/L (3.5-5.1); Protein, Total 6.7 g/dL (6.4-8.2); Sodium Level 140 mmol/L (136-145)
[2022-01-12 22:53] LABS: Erythrocyte Sedimentation Rate 22 mm/hr (0-20)
[2022-01-13 15:08] LABS: PROEL- A/G Ratio 1.2 (0.7-1.7); PROEL- Albumin 3.3 g/dL (2.9-4.4); PROEL- Alpha-1 Globulin 0.3 g/dL (0.0-0.4); PROEL- Beta Globulin 0.9 g/dL (0.7-1.3); PROEL- Gamma Globulin 0.6 g/dL (0.4-1.8); PROEL- Globulin, Total 2.8 g/dL (2.2-3.9); PROEL- TOTAL PROTEIN 6.1 g/dL (6.0-8.5)
== END | disposition home or self-care (01) ==
LOC: MFPLAB 10:22
PROVIDERS: PCP Family Medicine; Visit Provider Family Medicine
DX: R10.32 Left lower quadrant pain (principal); M54.50 Low back pain, unspecified
CPT/HCPCS: 36415; 80053; 84165; 85027; 85652; 86140

== ENCOUNTER → 2022-01-20 | Outpatient (CLI) | payer MEDICARE, OTHER, SELFPAY ==
--- NOTE | 2022-01-20 15:06 | CT_ITS ---
INDICATION: Left lower quadrant and back pain. Question diverticulitis. EXAMINATION: CT ABDOMEN AND PELVIS WITH CONTRAST - CT Abdomen And Pelvis W/ Contrast Injection TECHNIQUE: Helically acquired images were obtained of the abdomen and pelvis following IV contrast. A radiation dose optimization technique was used for this scan. IV Contrast dosage and agent: 100 mL of Isovue 300 Oral contrast: Yes COMPARISON: MRI of the abdomen, October 31, 2018. FINDINGS: LOWER CHEST: Lung bases are clear. No cardiomegaly or pericardial effusion. There is what appears to be a lipoma in the right diaphragmatic summer. LIVER: There is a small cyst in segment 6 of an otherwise normal liver. No focal mass. GALLBLADDER AND BILIARY TREE: Status post cholecystectomy. No intra- or extrahepatic biliary ductal dilation. PANCREAS: Partial fatty replacement of the pancreas without mass. SPLEEN: Normal size without focal cystic or solid mass. ADRENAL GLANDS: No nodules. KIDNEYS AND URETERS: Normal renal size and position. No hydronephrosis. Normal bilateral ureters. PERITONEUM: No ascites or free air. No other fluid collection. BOWEL: No evidence of acute appendicitis. No stomach or bowel distension. No evidence of diverticular disease. No focal inflammatory change. LYMPH NODES: No enlarged mesenteric or retroperitoneal lymph nodes. VESSELS: Mild atherosclerotic changes of the abdominal aorta and iliac arteries without aneurysm or dissection. Normal IVC. URINARY BLADDER: Unremarkable. REPRODUCTIVE ORGANS: Enlarged prostate with central calcifications. ABDOMINAL WALL: No discrete abdominal or pelvic wall hernia. There is evidence of bilateral hydroceles, left greater than right. BONES: Degenerative changes of the lumbar spine and hips. No lytic or blastic abnormality. CT/Abdomen/Pelvis WITH Contrast IMPRESSION: 1. No evidence of diverticulitis or diverticular disease. 2. No renal, ureteral or urinary bladder abnormality. 3. Enlarged prostate. 4. Bilateral hydroceles. 5. Degenerative changes of the lumbar spine. Electronically Signed: Kashmir Partida DO at 18:13 EDT Reading Location ID and State: [address] [place] [address] Tel [phone], Service support ,
== END | disposition home or self-care (01) ==
LOC: CT 15:06
PROVIDERS: PCP Family Medicine; Referring Provider Family Medicine; Visit Provider Family Medicine
DX: R10.32 Left lower quadrant pain (principal); M54.9 Dorsalgia, unspecified
CPT/HCPCS: 74177; Q9967; A4216

== ENCOUNTER 2022-02-19 19:23 | Emergency (ER) | payer MEDICARE, OTHER, SELFPAY ==
[2022-02-19 19:26] VITALS: BP 160/106; PULSE 80; RESP 16; TEMP 36.9; O2SAT 94; BMI 34.1
--- NOTE | 2022-02-19 20:10 | CT_ITS ---
STUDY: CT BRAIN WITHOUT CONTRAST REASON FOR EXAM: Male, 81 years old. Head injury RADIATION DOSAGE (If Supplied By Facility): CTDIvol = ( 44.99 ) mGy, DLP = ( 863.60 ) mGycm TECHNIQUE: Transaxial CT imaging of the brain was performed without administration of intravenous contrast material. Individualized dose optimization techniques were used for this CT. COMPARISON: 06/20/2020 FINDINGS: There is soft tissue swelling and associated hematoma in the forehead on the left without evidence for associated skull fracture. Calcific plaquing of cavernous carotids. Atrophy and mild periventricular white matter ischemic changes. Normal basal ganglia and thalami. Normal brainstem. Normal cerebellum. There is no intracranial hemorrhage. There are no findings of an acute ischemic infarction. Postsurgical changes of the orbits. Normal visualized paranasal sinuses. CT/Brain/Head without Contrast IMPRESSION: Diffuse soft tissue swelling and small hematoma in the left forehead without associated skull fracture or acute intracranial hemorrhage Atrophy and periventricular white matter ischemic changes. Electronically Signed: Mark Jack MD at 20:44 EST ,
--- NOTE | 2022-02-19 20:37 | EX.ED.GENINJ ---
HPI History of Present Illness Chief Complaint: Head Injury Informant: patient Onset/Context/Timing Onset: Today Mechanism/Context: Fall Quality of Pain: Aching Location: Left frontal forehead Worsened by: Nothing Relieved by: Nothing Associated Symptoms Associated Symptoms: Negative for Parasthesias, Weakness, Loss of function, Inability to ambulate, Loss of consciousness or Amnesia Narrative Narrative: PatientPatient presents after a fall that occurred today. Patient states he fell forward and hit his head on the sidewalk. Patient denies any loss of consciousness. Patient describes his pain as aching. Patient states the pain is over the left forehead states nothing makes it worse and nothing makes it better. Patient states he also hit his left chest and has some pain in his left ribs. Patient is on Eliquis for atrial fibrillation. Patient denies any nausea or vomiting. Patient denies any visual changes. [facility] Medical History Atherosclerosis of coronary artery of [place] heart without angina pectoris Back pain BPH (benign prostatic hyperplasia) Chronic atrial fibrillation Essential hypertension Hemorrhoids History of cardioversion History of fall Hyperlipidemia MGUS (monoclonal gammopathy of unknown significance) Sternal fracture (~03/08/19) Tongue carcinoma Umbilical hernia Home Medications rosuvastatin 20 mg tablet 20 mg PO DAILY 10/03/18 [History Last Taken Unknown] carvedilol 6.25 mg tablet (Coreg) 12.5 mg PO BID 07/19/20 [History Last Taken Unknown] apixaban 5 mg tablet 5 mg PO BID #180 tabs 01/19/22 [Rx Last Taken Unknown] benazepril 20 mg tablet 20 mg PO BID 01/19/22 [History Last Taken Unknown] hydrochlorothiazide 12.5 mg tablet 12.5 mg PO DAILY PRN leg 01/19/22 [History Last Taken Unknown] Allergy/AdvReac Type Severity Reaction Status Date / Time ezetimibe [From Vytorin] Allergy Intermediate Unknown Verified 02/19/22 19:26 simvastatin [From Vytorin] Allergy Intermediate Unknown Verified 02/19/22 19:26 adhesive tape [surgical tape] AdvReac Rash Verified 02/19/22 19:26 Family History Mother , Age 86 Heart disease CAD (coronary artery disease) Diabetes Hypertension Father AAA (abdominal aortic aneurysm) Colon cancer Sister Cancer bladder and uterus Brother Cancer prostate Hypertension Grandmother Diabetes Sister Hypertension Surgical History History of cataract extraction with lens replacement History of cholecystectomy History of extraction of renal calculus Presence of stent in coronary artery tongue surgery Social History Smoking Status: Never smoker alcohol intake: current alcohol intake frequency: holidays/special occasions only substance use type: does not use caffeine: Yes Type: coffee Number of servings: 2 ROS ROS ED Constitutional Constitutional ED: Denies chills or fever(s) Eyes Eyes: Denies blurry vision or change in vision ENT ENT ED: Denies rhinorrhea or sore throat Cardiovascular Cardiovascular: Reports chest pain; Denies palpitations Respiratory/Chest Respiratory/Chest: Denies cough or dyspnea Gastrointestinal Gastrointestinal: Denies nausea or vomiting Genitourinary Genitourinary ED: Denies dysuria or hematuria Musculoskeletal Musculoskeletal: Denies back pain or neck pain Integumentary Denies abscess or rash Neurologic Neurologic: Denies headache(s) or weakness Allergic/Immunologic Allergic/Immunologic ED: Denies mouth swelling or urticaria EXAM Physical Exam Const Vital Signs: 02/19/22 19:26 Temperature 98.4 F Temperature Source Temporal Pulse Rate 80 Respiratory Rate 16 Blood Pressure 160/106 H Blood Pressure Mean 124 Pulse Ox 94 Oxygen Delivery Method Room Air Positive well nourished and well developed General Appearance ED: well developed and NAD HEENT Reports moist mucous membranes HEENT Narrative: There is tenderness, edema, and ecchymosis over the left forehead. There is no bony crepitance or step-off. There is some ecchymosis of the left upper eyelid. trauma and tenderness Eyes PERRL and EOMs intact bilaterally Neck supple and no JVD Chest Wall Chest Narrative: There is minimal tenderness over the left chest. There is no bony crepitance or step-off. There is no subcutaneous emphysema noted. Resp normal respiratory effort and clear to auscultation bilaterally Cardio regular rate, regular rhythm and no murmurs GI normal to inspection, nondistended, normoactive bowel sounds and non-tender Palpation: soft Extremity normal to inspection General Extremety ED: Negative for edema or tenderness General Extremity: Negative for edema Neuro oriented x3, CN's II-XII intact bilaterally and no sensory deficits noted Sensorium / Orientation: alert Motor Exam: strength 5/5 throughout Psych mental status grossly normal Skin no rashes or lesions noted MDM MDM MDM Narrative Medical decision making narrative: CT scan of the brain was obtained. There is soft tissue swelling and a small hematoma in the left forehead. There is no skull fracture or intracranial hemorrhage. This was interpreted by the radiologist and reviewed by myself. Patient was advised of his findings. Patient was given head injury instructions. Patient was instructed use ice to the area. Patient was instructed to follow-up with his primary care physician in 5 to 7 days. Patient understood and was agreeable with the plan. All questions were answered. Radiography Diagnostic Testing: Clinical Impression(s) from Imaging Studies Brain CT 02/19/22 20:10 IMPRESSION: Diffuse soft tissue swelling and small hematoma in the left forehead without associated skull fracture or acute intracranial hemorrhage Atrophy and periventricular white matter ischemic changes. Electronically Signed: Mark Jack MD at 20:44 EST Reading Location ID and State: [facility] / [place] , Service support , Discharge Plan Triage Chief Complaint: Head Injury ED Provider: Abdirizak Ulloa Dx/Rx/DC Orders Clinical Impression: Closed head injury, Fall Instructions: ED Head Injury (Adult) Prescriptions: No Action rosuvastatin 20 mg tablet 20 mg PO DAILY carvedilol [Coreg] 6.25 mg tablet 12.5 mg PO BID Rx Instructions: must administer with a meal/food hydrochlorothiazide 12.5 mg tablet 12.5 mg PO DAILY PRN (Reason: leg) benazepril 20 mg tablet 20 mg PO BID apixaban 5 mg tablet 5 mg PO BID Qty: 180 3RF Primary Care Provider: Abdirizak Dillon Referrals: Abdirizak Dillon MD [Primary Care Provider] - 5-7 Days Disposition Disposition: Home, Self Care
== END 2022-02-19 21:22 | disposition home or self-care (01) ==
PROVIDERS: Emergency Provider Emergency Medicine; PCP Family Medicine; Visit Provider Emergency Medicine
DX: S00.83XA Contusion of other part of head, initial encounter (principal); I48.20 Chronic atrial fibrillation, unspecified; E78.5 Hyperlipidemia, unspecified; I10 Essential (primary) hypertension; I25.10 Atherosclerotic heart disease of native coronary artery without angina pectoris; R07.81 Pleurodynia; W19.XXXA Unspecified fall, initial encounter
CPT/HCPCS: 70450; 99282

== ENCOUNTER → 2022-05-26 | Outpatient (CLI) | payer MEDICARE, OTHER, SELFPAY ==
--- NOTE | 2022-05-26 11:15 | RAD_ITS ---
STUDY: X-RAY BONE SURVEY COMPLETE REASON FOR EXAM: Male, 81 years old. MGUS. MYELOMA. TECHNIQUE: PA chest One view of the pelvis was obtained. AP and lateral views of the cervical spine were obtained. AP and lateral views of the thoracic spine were obtained. AP and lateral views of the lumbar spine were obtained. AP views of the femur and lower leg. AP views of the humerus and forearm. : AP and lateral views of the skull were obtained. COMPARISON: None. FINDINGS: CHEST: The lungs are clear and expanded. There is no demonstrated pleural abnormality. Normal size heart. Normal mediastinum and jayjay. Normal visualized pulmonary arteries. There is atherosclerotic tortuosity of the aortic arch and descending thoracic aorta. The thoracic spine is obscured. There is degenerative osteoarthritis of the bilateral shoulders. There is no demonstrated abnormality of the visualized soft tissue structures of the upper abdomen. PELVIS: There is a non-specific bowel gas pattern. Normal visualized soft tissue structures. Degenerative changes lower lumbar spine. Normal bilateral iliac wings, sacroiliac joints and visualized sacrum. Normal visualized bilateral superior and inferior pubic rami. Normal pubic symphysis. Normal ischial tuberosities. Normal visualized right femoral head. Normal right acetabulum. There is mild articular joint space narrowing of the right hip. Normal visualized left femoral head. Normal left acetabulum. There is mild articular joint space narrowing of the left hip. CERVICAL SPINE: 2 Normal odontoid process. Normal cervical lordosis. There is multi-level endplate spondylosis. There is multi-level degenerative disc disease with multilevel disc space narrowing. No fracture or loss of vertebral axillae. Maintenance of normal alignment. No lytic or blastic lesions. The soft tissue structures are unremarkable. THORACIC SPINE: Normal kyphosis of the thoracic spine. There is no substantial scoliosis. There is demineralization of the thoracic spine with endplate spondylosis. There is multilevel disc space narrowing of the thoracic spine. No fracture or loss of vertebral axial height. No lytic or blastic lesions. The soft tissue structures are unremarkable. LUMBAR SPINE: Normal lumbar lordosis. There is no substantial scoliosis. There is a normal alignment of the vertebrae. There is multilevel endplate spondylosis of the lumbar vertebrae. There is multi-level degenerative disc disease with multi-level disc space narrowing. No fracture or loss of vertebral axial height. Lytic or blastic lesions. There is atherosclerotic calcification of the abdominal aorta without a demonstrated aneurysm. RIGHT LOWER EXTREMITY: Normal visualized femur. Normal tibia and fibula. No lytic or blastic lesions. Normal visualized soft tissue structure. LEFT LOWER EXTREMITY: Normal visualized femur. Normal tibia and fibula. No lytic or blastic lesions. Normal visualized soft tissue structure. RIGHT UPPER EXTREMITY :Normal visualized humerus. Normal radius and ulna. There is no demonstrated fracture or osseous destructive process. There is no demonstrated soft tissue abnormality. LEFT UPPER EXTREMITY :Normal visualized humerus. Normal radius and ulna. There is no demonstrated fracture or osseous destructive process. There is no demonstrated soft tissue abnormality. SKULL: There is no demonstrated soft tissue swelling. Normal osseous calvarium. Normal visualized facial bones. Normal visualized paranasal sinuses. RAD/Bone Survey Comp(Axial&Append) IMPRESSION: No evidence of lytic lesions. Electronically Signed: Kashmir Partida DO at 20:05 EST ,
== END | disposition home or self-care (01) ==
LOC: RAD 10:50
PROVIDERS: PCP Family Medicine; Visit Provider Internal Medicine Hematology & Oncology
DX: D47.2 Monoclonal gammopathy (principal)
CPT/HCPCS: 77075

== ENCOUNTER 2023-02-26 18:55 | Inpatient (IN) | payer MEDICARE, OTHER, SELFPAY ==
[2023-02-26 18:56] VITALS: BP 119/86; PULSE 85; RESP 14; TEMP 37.8; O2SAT 97; BMI 27.4
[2023-02-26 19:01] VITALS: BP 119/86; PULSE 81; RESP 18; TEMP 37.8; O2SAT 98
--- NOTE | 2023-02-26 20:19 | CT_ITS ---
STUDY: CT BRAIN WITHOUT CONTRAST REASON FOR EXAM: Male, 82 years old. fall, head injury RADIATION DOSAGE (If Supplied By Facility): CTDIvol = ( 44.99 ) mGy, DLP = ( 829.85 ) mGycm TECHNIQUE: Transaxial CT imaging of the brain was performed without administration of intravenous contrast material. Individualized dose optimization techniques were used for this CT. COMPARISON: 02/19/2022 FINDINGS: Normal soft tissue structures. Normal calvarium. There is mild cerebral atrophy with widening of the extra-axial spaces and ventricular dilatation. There are areas of decreased attenuation within the white matter tracts of the supratentorial brain, consistent with microvascular disease changes. Normal basal ganglia and thalami. Normal brainstem. Normal cerebellum. There is no intracranial hemorrhage. There are no findings of an acute ischemic infarction. There is mucoperiosteal inflammatory disease of the paranasal sinuses consistent with mild chronic sinusitis. CT/Brain/Head without Contrast IMPRESSION: Chronic involutional changes of the brain. Electronically Signed: Sukumar Simon MD at 21:03 EST ,
--- NOTE | 2023-02-26 20:21 | EDS_ITS ---
HPI History of Present Illness Chief Complaint: General Illness Detail of Chief Complaint: Generalized weakness Informant: patient Narrative Narrative: Patient presents via EMS from home with complaint of generalized weakness. Patient fell this morning in the basement on concrete floor. He is not sure if he hit his head. He is on Eliquis. Patient has had some confusion. He said increased urination with foul odor. He had a cough x 3 days. Decreased p.o. intake. Too weak to walk now and family having a hard time caring for patient. [facility] Medical History Atherosclerosis of coronary artery of [place] heart without angina pectoris Back pain BPH (benign prostatic hyperplasia) Chronic atrial fibrillation Essential hypertension Hemorrhoids History of cardioversion History of fall Hyperlipidemia MGUS (monoclonal gammopathy of unknown significance) Sternal fracture (~03/08/19) Tongue carcinoma Umbilical hernia Home Medications rosuvastatin 20 mg tablet 20 mg PO QHS 10/03/18 [History Last Taken Unknown] carvedilol 6.25 mg tablet (Coreg) 12.5 mg PO BID 07/19/20 [History Last Taken Unknown] apixaban 5 mg tablet 5 mg PO BID #180 tabs 01/19/22 [Rx Last Taken Unknown] benazepril 20 mg tablet 10 mg PO DAILY 01/19/22 [History Last Taken Unknown] hydrochlorothiazide 12.5 mg tablet 12.5 mg PO DAILY PRN leg 01/19/22 [History Last Taken Unknown] Allergy/AdvReac Type Severity Reaction Status Date / Time ezetimibe [From Vytorin] Allergy Intermediate Unknown Verified 02/26/23 19:01 simvastatin [From Vytorin] Allergy Intermediate Unknown Verified 02/26/23 19:01 adhesive tape [surgical tape] AdvReac Rash Verified 02/26/23 19:01 Family History Mother , Age 86 Heart disease CAD (coronary artery disease) Diabetes Hypertension Father AAA (abdominal aortic aneurysm) Colon cancer Sister Cancer bladder and uterus Brother Cancer prostate Hypertension Grandmother Diabetes Sister Hypertension Surgical History History of cataract extraction with lens replacement History of cholecystectomy History of extraction of renal calculus Presence of stent in coronary artery tongue surgery Social History Smoking Status: Never smoker alcohol intake: current alcohol intake frequency: holidays/special occasions only substance use type: does not use caffeine: Yes Type: coffee Number of servings: 2 ROS ROS ED Review of Systems ROS Unobtainable: other Constitutional Constitutional ED: Reports lethargy; Denies chills, fever(s), sweats or weight loss Eyes Eyes: Denies blurry vision, change in vision or diplopia ENT ENT ED: Denies rhinorrhea or sore throat Cardiovascular Cardiovascular: Denies chest pain, orthopnea or racing heartbeat Respiratory/Chest Respiratory/Chest: Reports cough; Denies dyspnea, dyspnea on exertion, orthopnea or sputum Gastrointestinal Gastrointestinal: Denies abdominal pain, diarrhea, nausea or vomiting Genitourinary Genitourinary ED: Denies dysuria, hematuria or urinary frequency Musculoskeletal Musculoskeletal: Denies arthralgias, back pain, myalgias or neck pain Integumentary Denies abscess, Abrasions or rash Neurologic Neurologic: Reports headache(s) and weakness Psychiatric Psychiatric: Denies anxiety, depression or suicidal thoughts Endocrine Endocrinology: Denies polydipsia, polyphagia or polyuria Hematologic/Lymphatic Hematologic/Lymphatic: Denies easy bleeding, easy bruising or lymphadenopathy Allergic/Immunologic Allergic/Immunologic ED: Denies mouth swelling, tongue swelling or urticaria EXAM Physical Exam Const Vital Signs: 02/26/23 18:56 02/26/23 19:01 02/26/23 19:01 Temperature 100.1 F H 100.1 F H Temperature Source Oral Oral Pulse Rate 85 81 Respiratory Rate 14 18 Respiratory Effort Normal Respiratory Pattern Normal Blood Pressure 119/86 H 119/86 H Blood Pressure Mean 97 97 Pulse Ox 97 98 Oxygen Delivery Method Room Air Room Air 02/26/23 21:01 Temperature 98.6 F Temperature Source Oral Pulse Rate 77 Respiratory Rate 22 H Respiratory Effort Respiratory Pattern Blood Pressure 120/78 Blood Pressure Mean 92 Pulse Ox 94 Oxygen Delivery Method Positive well nourished and well developed General Appearance ED: well developed and NAD HEENT Reports TM's clear and moist mucous membranes normocephalic and atraumatic; Negative for trauma or tenderness Tympanic Membrane ED: Yes TM's clear Eyes PERRL and EOMs intact bilaterally General Eye ED: Negative for pale conjunctiva or scleral icterus Neck no lymphadenopathy, supple and no JVD General: Negative for tenderness Chest Wall inspection of chest normal and palpation of chest normal Chest: Negative for tenderness Resp normal respiratory effort and clear to auscultation bilaterally Effort and Inspection: Negative for respiratory distress or pain with movement Auscultation: Negative for rhonchi, wheezes or diminished lung sounds Cardio regular rate, regular rhythm, S1 normal heart sound, S2 normal heart sound and no murmurs Peripheral Pulses: pulses 2+ throughout GI normal to inspection, nondistended, normoactive bowel sounds, soft to palpation, non-tender, non-distended and no masses Back/Spine no CVA tenderness and no thoracic nor lumbar tenderness Extremity normal to inspection Extremity Narrative: 1 edema both lower extremities General Extremety ED: Yes edema General Extremity: edema Neuro oriented x3, CN's II-XII intact bilaterally, no sensory deficits noted and gait normal Sensorium / Orientation: awake, alert, oriented to person, oriented to place and oriented to time Motor Exam: strength 5/5 throughout and strength abnormal Psych mental status grossly normal Skin no rashes or lesions noted and no wounds MDM MDM MDM Narrative Medical decision making narrative: Presents with generalized weakness as well as urinary frequency and fever as well as cough. In the differential would be UTI versus pneumonia or COVID-19 or other viral upper respiratory infection. I will establish an arrival. EKG obtained on arrival shows atrial fibrillation with no acute ST segment changes. CBC with differential shows a white count of 7.2 with hemoglobin 14.8 and platelet count of 125. Chemistries unremarkable. Urinalysis unremarkable for infection. COVID-19 testing was positive. Chest x-ray shows disease process. I did obtain initially blood cultures. This point discussed results with patient and family members. They are concerned about being able to care for him as he is too weak and has fallen. I did obtain initially a CT scan of his brain without contrast that was unremarkable for traumatic injury. Discussed case with hospitalist to evaluate patient for admission for generalized weakness and COVID-19. Lab Data Attestation: I reviewed the patient's lab results. Labs: Laboratory Results - last 24 hr 02/26/23 02/26/23 20:23 21:40 WBC 7.2 RBC 4.81 Hgb 14.8 Hct 42.8 MCV 89.0 MCH 30.8 MCHC 34.6 RDW Std Deviation 47.7 H RDW Coeff of Eh 14.6 Plt Count 125 L MPV 11.1 Immature Gran % (Auto) 0.100 Neut % (Auto) 76.0 H Lymph % (Auto) 10.8 L Moore % (Auto) 12.6 H Eos % (Auto) 0.4 Baso % (Auto) 0.1 Absolute Neuts (auto) 5.4 Absolute Lymphs (auto) 0.77 L Nucleated RBC % 0 Sodium 139 Potassium 3.8 Chloride 106 Carbon Dioxide 31.0 Anion Gap 2 L BUN 12 Creatinine 0.92 Estim Creat Clear Calc 61.96 Est GFR (MDRD) Af Amer 102 Est GFR (MDRD) Non-Af 84 BUN/Creatinine Ratio 13.0 Glucose 105 Lactic Acid 1.2 Calcium 8.8 Urine Color Yellow Urine Clarity Clear Urine pH 5.0 Ur Specific [place] 1.025 Urine Protein 30 H Urine Glucose (UA) Normal Urine Ketones 15 H Urine Occult Blood 250 H Urine Nitrite Negative Urine Bilirubin Negative Urine Urobilinogen Normal Ur Leukocyte Esterase 25 H Urine RBC 0-5 SEEN Urine WBC 0 SEEN Ur Squamous Epith Cells 0 SEEN Urine Bacteria 0 SEEN Urine Mucus 1+ Radiography Diagnostic Testing: Clinical Impression(s) from Imaging Studies Brain CT 02/26/23 20:19 IMPRESSION: Chronic involutional changes of the brain. Electronically Signed: Sukumar Simon MD at 21:03 EST , Chest X-Ray 02/26/23 20:50 IMPRESSION: No active disease. Cardiomegaly. Electronically Signed: Sukumar Simon MD at 21:33 EST , View chest x-ray obtained interpreted by myself as no evidence of infiltrate or pneumothorax or acute disease process. Radiology in agreement. EKG Initial EKG: Attestation: I personally reviewed and interpreted this EKG as follows: Comments: Atrial fibrillation with rate of 73 bpm with no acute ST segment changes Discharge Plan Dx/Rx/DC Orders Clinical Impression: COVID-19, Atrial fibrillation, Weakness, Fall Disposition Disposition: Acute Care [facility]
[2023-02-26 20:37] LABS: Absolute Lymphocyte Count 0.77 X10^3/uL (0.83-4.51); Absolute Neutrophil Count 5.4 X10^3/uL (2.0-7.7); Basophil# 0.01 X10^3/uL; Basophil% 0.1 % (0-1); Eosinophil# 0.03 X10^3/uL; Eosinophils% 0.4 % (0-5); Hematocrit 42.8 % (40-54); Hemoglobin 14.8 g/dL (13.0-16.5); Lymphocyte # 0.77 X10^3/ul (0.83-4.51); Lymphocyte % 10.8 % (19-41); Mean Corp Hgb Conc 34.6 g/dL (32-36); Mean Corpuscular Hgb 30.8 pg (27.0-32.0); Mean Platelet Vol. 11.1 fl (6.2-12.0); Monocyte% 12.6 % (0-10); NRBC Flagged by Analyzer 0 % (0-5); Neutrophil # 5.44 X10^3/uL (2.7-7.7); Platelet Count 125 K/mm3 (150-450); RBC Distribution Width CV 14.6 % (11.6-14.6); RBC Distribution Width SD 47.7 fl (35.1-43.9); Red Blood Count 4.81 M/mm3 (4.6-6.2); White Blood Count 7.2 K/mm3 (4.4-11.0)
[2023-02-26] MEDS: 0.9% Normal Saline (1000mL) 1,000 ML 150 ML IV (20:45)
[2023-02-26 20:50] LABS: Anion Gap 2 (5-15); BUN 12 mg/dL (7-18); Calcium,Total 8.8 mg/dL (8.5-10.1); Chloride 106 mmol/L (98-107); Creatinine, Serum 0.92 mg/dL (0.70-1.30); EST Glomerular Filtration Rate 84 mL/min (>60); Est Glom Filt Rate - Afr Amer 102 mL/min (>60); Estimated Creatinine Clearance 61.96 ml/min; Glucose 105 mg/dL (74-106); Potassium 3.8 mmol/L (3.5-5.1); Sodium Level 139 mmol/L (136-145)
--- NOTE | 2023-02-26 20:50 | RAD_ITS ---
STUDY: X-RAY CHEST REASON FOR EXAM: Male, 82 years old. cough TECHNIQUE: Single AP portable view of the chest. COMPARISON: 06/20/2020 FINDINGS: The lungs are clear and expanded. There is no demonstrated pleural abnormality. There is moderate cardiac enlargement. Normal mediastinum and jayjay. Normal visualized pulmonary arteries. There is atherosclerotic tortuosity of the aortic arch and descending thoracic aorta. Normal visualized thoracic spine. Normal visualized ribs, clavicles, and shoulders. There is no demonstrated abnormality of the visualized soft tissue structures of the upper abdomen. RAD/Chest 1 View (Portable) IMPRESSION: No active disease. Cardiomegaly. Electronically Signed: Sukumar Simon MD at 21:33 EST ,
[2023-02-26 21:00] LABS: Lactic Acid 1.2 mmol/L (0.4-1.9)
[2023-02-26 21:01] VITALS: BP 120/78; PULSE 77; RESP 22; TEMP 37; O2SAT 94
[2023-02-26 21:48] LABS: Bacteria 0 SEEN /hpf (None Seen); White Blood Cells 0 SEEN /hpf (0-5)
[2023-02-26 21:49] LABS: Color, Urine Yellow (Yellow); Glucose, Dipstick Normal (Normal); Ketone-Dipstick 15 mg/dl (Negative); Leukocyte Esterase-Dipstick 25 /ul (Negative); Nitrite-Dipstick Negative (Negative); Occult Blood-Urine 250 /ul (Negative); Protein-Dipstick 30 mg/dl (Negative); Specific Gravity, Urine 1.025 (1.002-1.030); Urine Bilirubin Dipstick Negative (Negative); Urine Clarity Clear (Clear); Urine Urobilinogen Normal (Normal)
[2023-02-26 22:01] LABS: Mucous, Urine 1+ /hpf (<or=2+); Red Blood Cells-Urine 0-5 SEEN /hpf (0-5); Squamous Epithelial Cells - UA 0 SEEN /hpf (0-5)
--- NOTE | 2023-02-26 22:17 | HP.PCM.HOS_ITS ---
HPI - General General Date of Admission: 02/26/23 Date of Service: 02/26/23 HPI Narrative JOSSE TIRADO, is a 82 M with past medical history of hypertension dyslipidemia A- fib, MGUS who presents to the ED for generalized weakness, after a fall this morning. Per the family over the last 3 days he is having progressive cough and occasional shortness of breath. He has been more fatigued than usual. No fever that was noted at home. This morning he tripped while walking in his basement. And he also injured his head at that time. Further for his further evaluation and management he was brought to the ED. He does not remember tripping or any blackout. Following the fall there was some confusion. The patient's family is also finding it very difficult to take care of him given his recent loss of independence. His home medications include Coreg 6.25, rosuvastatin 20, hydrochlorothiazide 12.5, benazepril 20 mg, apixaban 5 mg. In the ED, he was positive for COVID. CT brain shows no acute changes, chest x- ray showed no active disease, cardiomegaly. Today his hemoglobin is 14.8, WBC 7.2, platelet count 125, sodium and potassium normal BUN 12 creatinine 0.9 glucose 105. [facility] Medical History Atherosclerosis of coronary artery of [place] heart without angina pectoris Back pain BPH (benign prostatic hyperplasia) Chronic atrial fibrillation Essential hypertension Hemorrhoids History of cardioversion History of fall Hyperlipidemia MGUS (monoclonal gammopathy of unknown significance) Sternal fracture (~03/08/19) Tongue carcinoma Umbilical hernia Home Medications rosuvastatin 20 mg tablet 20 mg PO QHS 10/03/18 [History Last Taken Unknown] carvedilol 6.25 mg tablet (Coreg) 12.5 mg PO BID 07/19/20 [History Last Taken Unknown] apixaban 5 mg tablet 5 mg PO BID #180 tabs 01/19/22 [Rx Last Taken Unknown] benazepril 20 mg tablet 10 mg PO DAILY 01/19/22 [History Last Taken Unknown] hydrochlorothiazide 12.5 mg tablet 12.5 mg PO DAILY PRN leg 01/19/22 [History Last Taken Unknown] Allergy/AdvReac Type Severity Reaction Status Date / Time ezetimibe [From Vytorin] Allergy Intermediate Unknown Verified 02/26/23 19:01 simvastatin [From Vytorin] Allergy Intermediate Unknown Verified 02/26/23 19:01 adhesive tape [surgical tape] AdvReac Rash Verified 02/26/23 19:01 Family History Mother , Age 86 Heart disease CAD (coronary artery disease) Diabetes Hypertension Father AAA (abdominal aortic aneurysm) Colon cancer Sister Cancer bladder and uterus Brother Cancer prostate Hypertension Grandmother Diabetes Sister Hypertension Surgical History History of cataract extraction with lens replacement History of cholecystectomy History of extraction of renal calculus Presence of stent in coronary artery tongue surgery Social History Smoking Status: Never smoker alcohol intake: current alcohol intake frequency: holidays/special occasions only substance use type: does not use caffeine: Yes Type: coffee Number of servings: 2 ROS Constitutional Constitutional: Reports anorexia, fatigue, malaise and weakness Eyes Eyes: Denies blurry vision, change in eye color, change in vision, discharge from eye(s), double vision, erythema, eye pain, loss of vision or other ENT HEENT: Denies abnormal hearing, dysphagia, ear pain, epistaxis, headache(s), hearing loss, nasal congestion, nasal discharge, post nasal drip, sinus pre ssure, sore throat or other Cardiovascular Cardiovascular: Denies chest pain, claudication, dyspnea on exertion, edema, lightheadedness, orthopnea, palpitations, paroxysmal nocturnal dyspnea, rapid heart rate, syncope or other Respiratory/Chest Respiratory/Chest: Reports cough and dyspnea Gastrointestinal Gastrointestinal: Denies abdominal pain, coffee ground emesis, constipation, diarrhea, dyspepsia, hematemesis, hematochezia, loose stools, melena, nausea, vomiting or other Genitourinary Genitourinary: Denies burning urination, difficulty urinating, dysuria, hematuria, nocturia, urinary frequency, urinary hesitancy, urinary incontinence, urinary urgency or other Musculoskeletal Musculoskeletal: Denies arthralgias, back pain, joint pain, joint stiffness, joint swelling, myalgias, neck pain or other Neurologic Neurologic: Reports disequilibrium and dizziness; Denies abnormal gait, abnormal speech, confusion, focal weakness, headache(s), numbness, paresthesias, seizure- like activity, seizures, syncope, tingling, tremor(s) or other Psychiatric Psychiatric: Denies anxiety, depression, homicidal ideation, suicidal ideation or other Hematologic/Lymphatic Hematologic/Lymphatic: Denies anemia, easy bleeding, easy bruising, lymphadenopathy or other Allergic/Immunologic Allergic/Immunologic: Denies rhinitis, hives, eczemia, asthma or other Vital Signs Vital Signs Vital Signs: 02/26/23 18:56 02/26/23 19:01 02/26/23 19:01 Temperature 100.1 F H 100.1 F H Temperature Source Oral Oral Pulse Rate 85 81 Respiratory Rate 14 18 Respiratory Effort Normal Respiratory Pattern Normal Blood Pressure 119/86 H 119/86 H Blood Pressure Mean 97 97 Pulse Ox 97 98 Oxygen Delivery Method Room Air Room Air 02/26/23 21:01 Temperature 98.6 F Temperature Source Oral Pulse Rate 77 Respiratory Rate 22 H Respiratory Effort Respiratory Pattern Blood Pressure 120/78 Blood Pressure Mean 92 Pulse Ox 94 Oxygen Delivery Method Weight Weight: 180 lb 9.6 oz Body Mass Index (BMI) 27.4 Physical Exam Const alert and oriented x3 Neck no lymphadenopathy Resp normal respiratory effort, no use of accessory muscles and clear to auscultation bilaterally Cardio regular rate GI normal to inspection, nondistended, normoactive bowel sounds Extremity normal to inspection Neuro oriented x3 Sensorium / Orientation: awake and alert Results Medical Records Data Attestation: I reviewed the patient's medical records Lab / Micro Data Attestation: I reviewed the patient's lab results. 02/26/23 20:23 02/26/23 20:23 Labs: Laboratory Results - last 24 hr 02/26/23 20:23: WBC 7.2, RBC 4.81, Hgb 14.8, Hct 42.8, MCV 89.0, MCH 30.8, MCHC 34.6, RDW Std Deviation 47.7 H, RDW Coeff of Eh 14.6, Plt Count 125 L, MPV 11.1, Immature Gran % (Auto) 0.100, Neut % (Auto) 76.0 H, Lymph % (Auto) 10.8 L, [place] % (Auto) 12.6 H, Eos % (Auto) 0.4, Baso % (Auto) 0.1, Absolute Neuts (auto) 5.4, Absolute Lymphs (auto) 0.77 L, Nucleated RBC % 0, Sodium 139, Potassium 3.8, Chloride 106, Carbon Dioxide 31.0, Anion Gap 2 L, BUN 12, Creatinine 0.92, Estim Creat Clear Calc 61.96, Est GFR (MDRD) Af Amer 102, Est GFR (MDRD) Non-Af 84, BUN/Creatinine Ratio 13.0, Glucose 105, Lactic Acid 1.2, Calcium 8.8 02/26/23 21:40: Urine Color Yellow, Urine Clarity Clear, Urine pH 5.0, Ur Specific [place] 1.025, Urine Protein 30 H, Urine Glucose (UA) Normal, Urine Ketones 15 H, Urine Occult Blood 250 H, Urine Nitrite Negative, Urine Bilirubin Negative, Urine Urobilinogen Normal, Ur Leukocyte Esterase 25 H, Urine RBC 0-5 SEEN, Urine WBC 0 SEEN, Ur Squamous Epith Cells 0 SEEN, Urine Bacteria 0 SEEN, Urine Mucus 1+ Micro: Microbiology 02/26/23 20:23 Nasal Secretion SARS-CoV-2 & FLU Antigen (Rapid) - Final Imagaing Radiology Impression Brain CT 02/26/23 20:19 IMPRESSION: Chronic involutional changes of the brain. Electronically Signed: Sukumar Simon MD at 21:03 EST , Chest X-Ray 02/26/23 20:50 IMPRESSION: No active disease. Cardiomegaly. Electronically Signed: Sukumar Simon MD at 21:33 EST , Assessment & Plan Assessment/Plan (1) Fall: PLAN: Plan 1. Fall: This was in the setting of acute COVID and likely resultant fatigue and malaise. He is also on diuretics and antihypertensive medications that could possibly lead to orthostatic hypotension especially with the acute infection. We will monitor him inpatient, get physical therapy evaluation for safety for home discharge. Will continue his antihypertensive medications for now to get a better assessment of his blood pressures. 2. COVID infection: Currently saturating well, x-ray was normal, no features of severe COVID. Will assess D-dimer levels. Continue inpatient monitoring. No indication for steroid therapy at this time 3. Atrial fibrillation: He is on chronic anticoagulation, given the present high risk of fall, we will hold his Eliquis medications for now. Charges/Coding Visit Charges Inpatient E&M: 37405 Init Hosp L2
[2023-02-26 22:33] VITALS: BP 128/90; PULSE 87; RESP 19; TEMP 37.1; O2SAT 96
[2023-02-26 23:41] VITALS: BMI 33.2
[2023-02-26 23:48] VITALS: BP 149/104; PULSE 84; RESP 18; TEMP 36.8; O2SAT 94
[2023-02-27] VITALS (8 sets, daily range): BP systolic 102–152; BP diastolic 56–81; PULSE 64–88; RESP 16–22; TEMP 36.9–37.2; O2SAT 92–96
[2023-02-27] MEDS: 0.9% Normal Saline (1000mL) 1,000 ML 150 ML IV ×2 (02:55→10:44)
--- NOTE | 2023-02-27 07:21 | PN.HOSP_ITS ---
Reason for Visit Reason for Visit: Diagnoses Unspecified fall, initial encounter (02/27/23) Objective Data Objective Data Vital Signs: Vital Signs Temp Pulse Resp BP Pulse Ox O2 Del Method 98.4 F 85 18 130/80 H 92 Room Air 02/27/23 06:53 02/27/23 06:53 02/27/23 06:53 02/27/23 06:53 02/27/23 06:53 02/27/23 06:53 Oxygen Delivery Method Room Air Weight: 218 lb 4.122 oz Body Mass Index (BMI) 33.2 Intake & Output: Intake and Output for Last 24 Hours 02/25/23 02/26/23 02/27/23 23:59 23:59 23:59 Intake Total 1025 / 1025 Output Total 100 / 100 Balance 925 / 925 Lab / Micro Data 02/27/23 07:51 02/27/23 07:51 Labs: Laboratory Results - last 24 hr 02/26/23 20:23: WBC 7.2, RBC 4.81, Hgb 14.8, Hct 42.8, MCV 89.0, MCH 30.8, MCHC 34.6, RDW Std Deviation 47.7 H, RDW Coeff of Eh 14.6, Plt Count 125 L, MPV 11.1, Immature Gran % (Auto) 0.100, Neut % (Auto) 76.0 H, Lymph % (Auto) 10.8 L, [place] % (Auto) 12.6 H, Eos % (Auto) 0.4, Baso % (Auto) 0.1, Absolute Neuts (auto) 5.4, Absolute Lymphs (auto) 0.77 L, Nucleated RBC % 0, Sodium 139, Potassium 3.8, Chloride 106, Carbon Dioxide 31.0, Anion Gap 2 L, BUN 12, Creatinine 0.92, Estim Creat Clear Calc 61.96, Est GFR (MDRD) Af Amer 102, Est GFR (MDRD) Non-Af 84, BUN/Creatinine Ratio 13.0, Glucose 105, Lactic Acid 1.2, Calcium 8.8 02/26/23 21:40: Urine Color Yellow, Urine Clarity Clear, Urine pH 5.0, Ur Specific [place] 1.025, Urine Protein 30 H, Urine Glucose (UA) Normal, Urine K etones 15 H, Urine Occult Blood 250 H, Urine Nitrite Negative, Urine Bilirubin Negative, Urine Urobilinogen Normal, Ur Leukocyte Esterase 25 H, Urine RBC 0-5 SEEN, Urine WBC 0 SEEN, Ur Squamous Epith Cells 0 SEEN, Urine Bacteria 0 SEEN, Urine Mucus 1+ Micro: Microbiology 02/26/23 20:23 Nasal Secretion SARS-CoV-2 & FLU Antigen (Rapid) - Final SARS-CoV-2 (COVID 19) Radiography Diagnostic Testing: Radiology Impression Brain CT 02/26/23 20:19 IMPRESSION: Chronic involutional changes of the brain. Electronically Signed: Sukumar Simon MD at 21:03 EST , Chest X-Ray 02/26/23 20:50 IMPRESSION: No active disease. Cardiomegaly. Electronically Signed: Sukumar Simon MD at 21:33 EST Reading Location ID and State: [id number] / [id number] Tel , Service support , Physical Exam Narrative Seen and examined. Patient not feeling good for last 3 days with cough fatigue. Cough mainly dry and some mild in nature with little bit phlegm. Patient had fall and was also reported to have confusion. Patient complaining of foul-smelling urine couple days ago but not now. It turned out to be positive for COVID in ED. Physical exam General: Alert, Oriented x3, Cooperative HEENT: Atraumatic, PERRLA, EOMI, Normocephalic Oral: Oral mucosa moist. No Gingival or Mucosal Lesions/ Ulcerations Neck: Supple, No JVD, Negative Carotid Bruits Lungs: Air entry diminished in bilateral lung bases. No crepitation/rhonchi Cardiovascular: Regular rate, Regular Rhythm, Normal S1, Normal S2, No murmurs Abdomen: Bowel Sounds Present, Soft, Non Tender, Non-Distended : No renal angle tenderness. No suprapubic tenderness. Extremities: Mild 1+ pitting bilateral ankle edema, Capillary Refill Less than 3 Seconds Skin: No rashes, No breakdown Musculoskeletal: No Tenderness to Palpation of Joints or Extremities Neurological: Cranial nerves II-XII grossly intact, DTR 2+/4. No acute focal neurological deficit. Psych/Mental Status: Flat affect. Assessment & Plan Assessment/Plan (1) Fall: PLAN: Plan 82-year-old male came to ED for generalized weakness, fall in the morning of admission on basement of the concrete floor. As per ED physician patient was also confused. Patient also had cough for 3 days with decreased p.o. intake and 2-week. 1. Fall: This was in the setting of acute COVID and likely resultant fatigue and malaise. He is also on diuretics and antihypertensive medications that could possibly lead to orthostatic hypotension especially with the acute infection. Orthostatic vitals ordered. PT and OT. 2. COVID infection: Lung auscultation revealed decreased breath sound lung bases. Patient on IV fluid 150 mill per hour. Chest x-ray also individually reviewed and shows increased interstitial marking therefore IV fluid d iscontinued. This. Will assess D-dimer levels. Continue inpatient monitoring. D-dimer less than 0.27 no indication for steroid therapy at this time 3. History of atrial fibrillation: He is on chronic anticoagulation, given the present high risk of fall, we will hold his Eliquis medications for now. Charges/Coding Visit Charges Inpatient E&M: 86579 Subs Hosp L2
[2023-02-27 08:15] LABS: Absolute Lymphocyte Count 0.78 X10^3/uL (0.83-4.51); Absolute Neutrophil Count 4.5 X10^3/uL (2.0-7.7); Basophil# 0.01 X10^3/uL; Basophil% 0.2 % (0-1); Eosinophil# 0.14 X10^3/uL; Eosinophils% 2.2 % (0-5); Hematocrit 40.2 % (40-54); Hemoglobin 13.6 g/dL (13.0-16.5); Lymphocyte # 0.78 X10^3/ul (0.83-4.51); Lymphocyte % 12.4 % (19-41); Mean Corp Hgb Conc 33.8 g/dL (32-36); Mean Corpuscular Hgb 30.4 pg (27.0-32.0); Mean Corpuscular Volume 89.7 fL (80-94); Mean Platelet Vol. 11.6 fl (6.2-12.0); Monocyte# 0.87 X10^3/uL; Monocyte% 13.8 % (0-10); NRBC Flagged by Analyzer 0 % (0-5); Neutrophil # 4.47 X10^3/uL (2.7-7.7); Neutrophil % 70.9 % (47-70); Platelet Count 117 K/mm3 (150-450); RBC Distribution Width CV 14.7 % (11.6-14.6); RBC Distribution Width SD 48.2 fl (35.1-43.9); Red Blood Count 4.48 M/mm3 (4.6-6.2); White Blood Count 6.3 K/mm3 (4.4-11.0)
[2023-02-27 08:38] LABS: AST(SGOT) 24 U/L (15-37); Alanine Aminotransfer ALT/SGPT 15 U/L (16-61); Albumin, Serum 2.9 g/dL (3.2-5.0); Alkaline Phosphatase 57 U/L (45-117); Anion Gap 3 (5-15); BUN 12 mg/dL (7-18); BUN/Creat Ratio 16.8 RATIO (10-20); Bilirubin, Direct 0.35 mg/dL (0.00-0.30); Calcium,Total 7.8 mg/dL (8.5-10.1); Chloride 110 mmol/L (98-107); Creatinine, Serum 0.72 mg/dL (0.70-1.30); EST Glomerular Filtration Rate 112 mL/min (>60); Est Glom Filt Rate - Afr Amer 136 mL/min (>60); Globulin 2.8 g/dL (2.2-4.2); Glucose 88 mg/dL (74-106); Magnesium 1.8 mg/dL (1.6-2.6); Phosphorus 1.8 mg/dL (2.5-4.9); Potassium 3.5 mmol/L (3.5-5.1); Protein, Total 5.7 g/dL (6.4-8.2); Sodium Level 140 mmol/L (136-145)
[2023-02-27 08:39] LABS: D-Dimer Quantitative (DVT/PE) < 0.27 FEU/ug/m (0.27-0.49)
[2023-02-27 10:02] LABS: International Normalized Ratio 1.3; Prothrombin Time (Protime)PT. 15.9 SECONDS (11.7-14.9)
[2023-02-27] MEDS: Lisinopril 10 MG Tablet PO (10:44)
[2023-02-27] MEDS: Carvedilol 12.5 MG Tablet PO ×2 (10:44→18:02)
--- NOTE | 2023-02-27 11:02 | RAD_ITS ---
EXAM: XR CHEST, 1 VIEW CLINICAL INDICATION: interstitial edema TECHNIQUE: Frontal view of the chest. COMPARISON: 02/26/2023 FINDINGS: LUNGS AND PLEURAL SPACES: Unremarkable. No consolidation or edema. No pneumothorax. No effusion. HEART: Cardiac silhouette is at the upper limits of normal in size. MEDIASTINUM: Central airways and mediastinal contour are unremarkable. BONES/JOINTS: Unremarkable. No acute fracture. SOFT TISSUES: Unremarkable. RAD/Chest 1 View (Portable) IMPRESSION: No acute pulmonary abnormality. There has been no change from the reference exam. Electronically Signed: Marc Payne MD at 23:39 EST ,
[2023-02-27] MEDS: Na Biphos/Potassium Phosphate PACKET 1 PACKET PO ×3 (12:38→20:56)
[2023-02-27] MEDS: Magnesium Chloride 64 MG Delay Rel.Tablet 128 MG PO ×2 (12:38→20:56)
--- NOTE | 2023-02-27 13:00 | CASEMGMT ---
ANGELA GOLDSMITH Assessment: Face to Face with pt for initial transition planning/care coordination assessment. RN AGUS introduced self and role at [facility], pt voices understanding and consents to assessment. Pt is A&O x4 and answers all questions appropriately at this time. Pt sitting up in chair on RA with at bedside. Care providers, pharmacy, and demographics verified/updated. Admitting Dx:JOEL PCP:[facility] Specialists: [facility], ENT; [facility], cardio; could not remember name of onc Preferred Pharmacy:[facility] Insurance:[facility] [place] Prescription Benefit: yes LNOK:Cat Leonard, Living Arrangements: Pt lives with in a two story home with 2 steps to enter. Pt reports he is I in ADL's and denies concerns at home. Transportation: Pt drives self and denies concerns with transportation. DME:[facility] HHC/SNF:Pt has had HHC in the past but cannot recall the name of the agency. Pt denies SNF stays. Pt states no concerns with going home at time of dc. Pt states no further concerns/needs. CM to follow. Advised pt to ask CM if any further question/concerns/needs arise, voices understanding. Pt Goal:Home Plan:Home
[2023-02-28 03:28] VITALS: BP 144/87; PULSE 82; RESP 18; TEMP 36.7; O2SAT 95
[2023-02-28 06:22] LABS: Anion Gap 4 (5-15); BUN 12 mg/dL (7-18); BUN/Creat Ratio 17.9 RATIO (10-20); Chloride 110 mmol/L (98-107); Creatinine, Serum 0.67 mg/dL (0.70-1.30); EST Glomerular Filtration Rate 121 mL/min (>60); Est Glom Filt Rate - Afr Amer 146 mL/min (>60); Glucose 113 mg/dL (74-106); Phosphorus 2.6 mg/dL (2.5-4.9); Potassium 3.7 mmol/L (3.5-5.1); Sodium Level 141 mmol/L (136-145)
[2023-02-28] MEDS: Na Biphos/Potassium Phosphate PACKET 1 PACKET PO ×3 (06:32→20:29)
[2023-02-28 09:30] VITALS: BP 123/72; PULSE 76; RESP 16; TEMP 36.8; O2SAT 97
[2023-02-28] MEDS: Lisinopril 10 MG Tablet PO (09:46)
[2023-02-28] MEDS: Magnesium Chloride 64 MG Delay Rel.Tablet 128 MG PO ×2 (09:46→20:29)
[2023-02-28] MEDS: Carvedilol 12.5 MG Tablet PO ×2 (09:46→16:55)
--- NOTE | 2023-02-28 11:43 | RAD_ITS ---
STUDY: XR Chest 1 View 02/28/2023 1:00 PM REASON FOR EXAM: Male, 82 years old. pneumonia COMPARISON: Study done yesterday TECHNIQUE: XR Chest 1 View FINDINGS: There is no demonstrated pleural abnormality. Normal heart size. Normal mediastinum. Normal jayjay. Prominent appearing increased interstitial lung markings. Normal visualized pulmonary arteries. There is atherosclerotic calcification of the aortic arch with tortuosity. There are diffuse degenerative changes of the visualized thoracic spine. There is degenerative osteoarthritis of the bilateral shoulders. There are no acute findings of the upper abdomen. RAD/Chest 1 View (Portable) IMPRESSION: There are no acute findings. Electronically Signed: Carlos Palacios MD at 15:47 EST ,
[2023-02-28 14:15] VITALS: BP 104/48; PULSE 82; RESP 16; TEMP 36.9; O2SAT 96
--- NOTE | 2023-02-28 15:09 | PN.HOSP_ITS ---
Reason for Visit Reason for Visit: Diagnoses Unspecified fall, initial encounter (02/27/23) Objective Data Objective Data Vital Signs: Vital Signs Temp Pulse Resp BP Pulse Ox O2 Del Method 98.4 F 82 16 104/48 L 96 Room Air 02/28/23 14:15 02/28/23 14:15 02/28/23 14:15 02/28/23 14:15 02/28/23 14:15 02/28/23 14:37 Oxygen Delivery Method Room Air Weight: 218 lb 4.122 oz Body Mass Index (BMI) 33.2 Intake & Output: Intake and Output for Last 24 Hours 02/26/23 02/27/23 02/28/23 23:59 23:59 23:59 Intake Total 2742.5 / 2742.5 800 / 800 Output Total 900 / 900 300 / 300 Balance 1842.5 / 1842.5 500 / 500 Lab / Micro Data 02/27/23 07:51 02/28/23 05:53 Labs: Laboratory Results - last 24 hr 02/28/23 05:53: Sodium 141, Potassium 3.7, Chloride 110 H, Carbon Dioxide 27.0, Anion Gap 4 L, BUN 12, Creatinine 0.67 L, Estim Creat Clear Calc 57.00, Est GFR (MDRD) Af Amer 146, Est GFR (MDRD) Non-Af 121, BUN/Creatinine Ratio 17.9, Glucose 113 H, Calcium 8.0 L, Phosphorus 2.6, Magnesium 2.0 Micro: Microbiology 02/26/23 21:40 Urine, Clean Catch Urine Culture - Final Culture exhibits no growth. 02/26/23 20:23 Nasal Secretion SARS-CoV-2 & FLU Antigen (Rapid) - Final SARS-CoV-2 (COVID 19) Radiography Diagnostic Testing: Radiology Impression Chest X-Ray 02/27/23 11:02 IMPRESSION: No acute pulmonary abnormality. There has been no change from the reference exam. Electronically Signed: Marc Payne MD at 23:39 EST , Physical Exam Narrative Seen and examined. Patient is not hypoxic. No fever. No tachycardia. Repeat chest x-ray done and individually reviewed does not show acute infiltrate. Cough is improving. Physical exam General: Alert, Oriented x3, Cooperative HEENT: Atraumatic, PERRLA, EOMI, Normocephalic Oral: Oral mucosa moist. No Gingival or Mucosal Lesions/ Ulcerations Neck: Supple, No JVD, Negative Carotid Bruits Lungs: Air entry diminished in bilateral lung bases. No crepitation/rhonchi Cardiovascular: Regular rate, Regular Rhythm, Normal S1, Normal S2, No murmurs Abdomen: Bowel Sounds Present, Soft, Non Tender, Non-Distended : No renal angle tenderness. No suprapubic tenderness. Extremities: Mild 1+ pitting bilateral ankle edema, Capillary Refill Less than 3 Seconds Skin: No rashes, No breakdown Musculoskeletal: No Tenderness to Palpation of Joints or Extremities Neurological: Cranial nerves II-XII grossly intact, DTR 2+/4. No acute focal neurological deficit. Psych/Mental Status: Flat affect. Assessment & Plan Assessment/Plan (1) Fall: PLAN: Plan 82-year-old male came to ED for generalized weakness, fall in the morning of admission on basement of the concrete floor. As per ED physician patient was also confused. Patient also had cough for 3 days with decreased p.o. intake and 2-week. 1. Fall: This was in the setting of acute COVID and likely resultant fatigue and malaise. He is also on diuretics and antihypertensive medications that could possibly lead to orthostatic hypotension especially with the acute i nfection. Orthostatic vitals ordered. PT and OT. Patient not feeling good for last 3 days with cough fatigue. Cough mainly dry and some mild in nature with little bit phlegm. Patient had fall and was also reported to have confusion. Patient complaining of foul-smelling urine couple days ago but not now. It turned out to be positive for COVID in ED. 2. COVID infection: Lung auscultation revealed decreased breath sound lung bases. Patient on IV fluid 150 mill per hour. Chest x-ray also individually reviewed and shows increased interstitial marking therefore IV fluid discontinued. This. Will assess D-dimer levels. Continue inpatient monitoring. D-dimer less than 0.27 no indication for steroid therapy at this time 02/28: Patient still does not feel good with mild cough, unable to bring phlegm. On Mucinex DM. Incentive spirometry and Pep. Anticipate discharge tomorrow AM. Discontinue IV fluid. I do not think patient requires dexamethasone or antibiotics. 3. History of atrial fibrillation: He is on chronic anticoagulation, given the present high risk of fall, we will hold his Eliquis medications for now. Charges/Coding Visit Charges Inpatient E&M: 48164 Subs Hosp L2
[2023-02-28] MEDS: guaiFENesin/D-Methorphan TAB.SR.12H 2 TABLET PO ×2 (16:55→20:29)
[2023-02-28 20:33] VITALS: BP 155/83; PULSE 78; RESP 16; TEMP 36.4; O2SAT 97
[2023-03-01 03:46] VITALS: BP 149/78; PULSE 89; RESP 18; TEMP 36.7; O2SAT 94
[2023-03-01] MEDS: Na Biphos/Potassium Phosphate PACKET 1 PACKET PO (06:20)
[2023-03-01 06:35] LABS: Anion Gap 4 (5-15); BUN 11 mg/dL (7-18); BUN/Creat Ratio 15.2 RATIO (10-20); Calcium,Total 8.6 mg/dL (8.5-10.1); Chloride 110 mmol/L (98-107); Creatinine, Serum 0.72 mg/dL (0.70-1.30); EST Glomerular Filtration Rate 111 mL/min (>60); Est Glom Filt Rate - Afr Amer 134 mL/min (>60); Glucose 101 mg/dL (74-106); Sodium Level 143 mmol/L (136-145)
[2023-03-01 07:20] VITALS: O2SAT 94
[2023-03-01] MEDS: guaiFENesin/D-Methorphan TAB.SR.12H 2 TABLET PO (09:26)
[2023-03-01] MEDS: Carvedilol 12.5 MG Tablet PO (09:26)
[2023-03-01] MEDS: Magnesium Chloride 64 MG Delay Rel.Tablet 128 MG PO (09:26)
[2023-03-01] MEDS: Lisinopril 10 MG Tablet PO (09:27)
[2023-03-01 09:45] VITALS: BP 144/70; PULSE 82; RESP 18; TEMP 37; O2SAT 94
[2023-03-01 10:00] VITALS: RESP 18
--- NOTE | 2023-03-01 11:41 | CASEMGMT ---
Addendum entered by Carmen Garrido 03/01/23 16:17: TC to pt , she is aware of the above and is agreeable to [facility]. She denies further questions. Addendum entered by Carmen Garrido 03/01/23 16:14: Received notification that [facility] can see pt within 24-48 hours. Cancelled HHC with Adeola at [facility]. Addendum entered by Carmen Garrido 03/01/23 14:56: Received tc from Adeola at [facility], SN could see pt tomorrow but therapy could not see pt until next week. TC to pt and who are aware aware of the appt with Dr. Dillon and that [facility] can accept but the delay in therapy. Pt would like to try [facility] followed by Sr[facility] to see if therapy could start sooner. DC catering administrative assistant will send referrals. Pt is agreeable to a [facility], provided pt with a verbal local in network list of DME providers,pt has no preference. Addendum entered by Carmen Garrido 03/01/23 14:02: TC to 's office, an appt was made for 03/04 at 1030am. Awaiting acceptance by [facility] and will notify pt. Addendum entered by Carmen Garrido 03/01/23 12:27: Received tc from pt , she states she would like the same agency pt has had in the past. Looked in old records, and pt had [facility]. Pt chooses this. TC to Adeola at [facility], referral made, will await acceptance. TC to 's office to schedule an appt, the office is closed until 1:30pm. Original Note: Pt reports he is agreeable to [facility]. He states his typically makes the decisions for him and he requested the RN CM call her. He states she has a phone where the choices can be sent to her. TC to pt , received vm, left the information that the [facility] will be sent to her and requested she pick the top 3 preferences and provided RN CM call back number. A list of [facility] providers including quality and resource use data and consistent with the patient?s preferred geographic region, medical needs, and insurance network were provided via the [employer] Link to pt .
--- NOTE | 2023-03-01 13:53 | PCM.DC.SUM ---
Providers Date of Admission: 02/27/23 Date of Discharge: 03/01/23 Primary Care Physician: Dr. Abdirizak Dillon MD Reason For Visit: COVID Diagnosis Discharge Diagnosis (1) Fall: Status: Acute Code(s): W19.XXXA - Unspecified fall, initial encounter Medications at Discharge Home Medications rosuvastatin 20 mg tablet 20 mg PO QHS 10/03/18 carvedilol 6.25 mg tablet (Coreg) 12.5 mg PO BID 07/19/20 apixaban 5 mg tablet 5 mg PO BID #180 tabs 01/19/22 benazepril 20 mg tablet 10 mg PO DAILY 01/19/22 hydrochlorothiazide 12.5 mg tablet 12.5 mg PO DAILY PRN leg 01/19/22 Hospital Course Procedures EKG and - (Chest x-ray) Summary of Care Provided Minutes Spent on Discharge: 32 Hospital Course: Mr. Leonard is an 82-year-old white male who presents emergency department via EMS on 02/26/2023 with a chief complaint of generalized weakness. Patient evidently fell on the morning of presentation in the basement on a concrete floor. He was not clear if he hit his head and is on Eliquis at baseline. He did have some confusion and patient reported increased urination with a foul odor however he had no dysuria. On presentation he indicated he had had a cough for about 3 days and decreased p.o. intake and was now too weak to walk. Family was having a difficult time caring for the patient at home. Vital signs on presentation showed a temperature of 100.1, heart rate was 85, blood pressure was 119/86, respiratory rate was 14-18 oxygen saturations were 97% on room air. His CBC was unremarkable. Coags were slightly elevated consistent with his apixaban use. His chemistry panel was overall unremarkable. His Phos was mildly low and this was replaced. His rapid COVID was positive. Blood and urine cultures were obtained and both were found to be negative. He was seen by physical and Occupational Therapy. They recommended ongoing therapy either with home health care versus outpatient rehab. The patient indicated he would like ongoing home health care rehab as he did after his previous episode with COVID-19 infection. He clinically was doing well and ambulatory pulse ox was done prior to discharge. He required no supplemental oxygen and did not require any throughout his entire hospitalization. He was discharged home with no new medication or any changes to his chronic medications. We have asked him to follow-up with his primary care physician as documented on his discharge paperwork. Discharge diagnoses: Acute COVID-19 infection Generalized weakness Fall due to the above Chronic atrial fibrillation Hypertension Hyperlipidemia BPH MGUS History of tongue carcinoma CAD Physical Exam Narrative Patient states he is feeling much better overall. States he would be amenable to home health care as he had this previously. Anxious to go home if possible. Const alert, oriented x3, no apparent distress, no limitations and well nourished Constitutional Narrative: Obese, elderly, white male, sitting up in a chair at the bedside, appears well, nontoxic, on room air General Appearance: cooperative, comfortable, well kempt and well developed Orientation / Consciousness: awake, oriented to person, oriented to place and oriented to time Exam Limitations: no limitations Nutritional Appearance: obese HEENT normocephalic, head/scalp atraumatic and moist oral mucous membranes; Negative for hearing grossly normal bilaterally HEENT Narrative: Moderate hearing loss, Mallampati 3, no thrush Resp normal respiratory effort, no retractions, no use of accessory muscles and clear to auscultation bilaterally Auscultation: Negative for rales, rhonchi or wheezes Cardio regular rate, S1 normal heart sound, S2 normal heart sound, no murmurs, no rub, no gallops and no clicks; Negative for regular rhythm Cardio Narrative: Irregular irregular rhythm with regular rate GI normal to inspection, nondistended, normoactive bowel sounds, soft to palpation and non-tender Extremity no clubbing, cyanosis or edema Extremity Narrative: Pedal pulses are 2+ Skin no rashes or lesions noted, skin turgor normal and no jaundice Neuro oriented x3, CN's II-XII intact bilaterally, moves all extremities, no focal motor deficits and no sensory deficits noted Speech: speech normal Psych affect normal Psych Narrative: Very pleasant, interacts appropriately Weight / BMI Weight Weight: 99 kg Body Mass Index (BMI) 33.2 ABG / Lab / Microbiology Data 02/27/23 07:51 03/01/23 05:37 Laboratory: Laboratory Results - last 24 hr 03/01/23 05:37: Sodium 143, Potassium 4.0, Chloride 110 H, Carbon Dioxide 29.0, Anion Gap 4 L, BUN 11, Creatinine 0.72, Estim Creat Clear Calc 57.00, Est GFR (MDRD) Af Amer 134, Est GFR (MDRD) Non-Af 111, BUN/Creatinine Ratio 15.2, Glucose 101, Calcium 8.6 Microbiology: Microbiology 02/26/23 21:10 Blood Culture (Wb) - Anticubital Left Blood Culture - Preliminary No growth in 48 hours. 02/26/23 20:23 Blood Culture (Wb) - Anticubital Right Blood Culture - Preliminary No growth in 48 hours. 02/26/23 21:40 Urine, Clean Catch Urine Culture - Final Culture exhibits no growth. 02/26/23 20:23 Nasal Secretion SARS-CoV-2 & FLU Antigen (Rapid) - Final SARS-CoV-2 (COVID 19) Radiography Diagnostic Testing: Radiology Impression Chest X-Ray 02/28/23 11:43 IMPRESSION: There are no acute findings. Electronically Signed: Carlos Palacios MD at 15:47 EST Reading Location ID and State: [address] [place] [address] , Service support , D/C Instructions Discharge Diet: Low fat / Low cholesterol Discharge Activity: Return to Normal Activity Return to work on: 03/06/23 Meaningful Use Info Meaningful Use Diagnoses (Choose all that apply): None applicable Discharge Plan Admission Admit Date/Time: 02/27/23 00:31 Primary Reason for Your Visit: Generalized weakness/fall Attending Provider: Loulou Dunlap Primary Care Provider: Abdirizak Dillon Consulting Providers: Ernesto Arthur; Raad Zaman Instructions Additional Instructions / Restrictions: 1. Please wear a mask in public places until 03/05/2023. After that time. You may come out of mass precautions and isolation for COVID-19 infection. Discharge Orders/Prescriptions Prescriptions: Continued rosuvastatin 20 mg tablet 20 mg PO QHS carvedilol [Coreg] 6.25 mg tablet 12.5 mg PO BID Rx Instructions: must administer with a meal/food hydrochlorothiazide 12.5 mg tablet 12.5 mg PO DAILY PRN (Reason: leg) benazepril 20 mg tablet 10 mg PO DAILY apixaban 5 mg tablet 5 mg PO BID Qty: 180 3RF Referrals / Follow Up: Abdirizak Dillon MD [Primary Care Provider] - 03/04/23 10:30 am (Please make sure to go to this appt as this is necessary for the home health to be able to see you in your home. ) Disposition Disposition (needs filled in before D/C Order can be placed): Home Health Service Charges/Coding Visit Charges Inpatient E&M: 58465 Subs Hosp L2
[2023-03-01 14:05] VITALS: BP 139/78; PULSE 87; RESP 18; TEMP 37.1; O2SAT 98
[2023-03-01 14:08] VITALS: O2SAT 92; O2SAT 98
--- NOTE | 2023-03-01 14:15 | PHA.DC.MR.R ---
Pharmacy [place] Med Reconciliation Pharmacy Service has performed discharge medication reconciliation for this patient. The patient's discharge medication list was reviewed for discrepancies and discrepancies were resolved. Medications at Discharge Home Medications rosuvastatin 20 mg tablet 20 mg PO QHS 10/03/18 carvedilol 6.25 mg tablet (Coreg) 12.5 mg PO BID 07/19/20 apixaban 5 mg tablet 5 mg PO BID #180 tabs 01/19/22 benazepril 20 mg tablet 10 mg PO DAILY 01/19/22 hydrochlorothiazide 12.5 mg tablet 12.5 mg PO DAILY PRN leg 01/19/22
--- NOTE | 2023-03-01 15:14 | CASEMGMT ---
Addendum entered by Marjorie Wong 03/01/23 15:37: Discharge Planning Patient has been accepted by [facility]. SOC is 24-48hrs. RN CM updated. Marjorie Wong, Discharge Planning Asst. Original Note: Discharge Planning Referral sent via [facility] to [facility] and [facility]. Marjorie Wong, Discharge Planning Asst.
--- NOTE | 2023-03-01 15:35 | CASEMGMT ---
Discharge Planning Order for [facility]WW sent to [facility] via [facility]. Marjorie Wong, Discharge Planning Asst.
== END 2023-03-01 17:15 | disposition home health service (06) | DRG 178 ==
LOC: ED 22:32 → MS3 02-27 03:03
PROVIDERS: Internal Medicine; Admitting Provider Internal Medicine; Emergency Provider Emergency Medicine; PCP Family Medicine; Visit Provider Internal Medicine
DX: U07.1 COVID-19 (principal); I48.20 Chronic atrial fibrillation, unspecified; E83.39 Other disorders of phosphorus metabolism; S09.90XA Unspecified injury of head, initial encounter; I10 Essential (primary) hypertension; E78.5 Hyperlipidemia, unspecified; I25.10 Atherosclerotic heart disease of native coronary artery without angina pectoris; D47.2 Monoclonal gammopathy; W18.09XA Striking against other object with subsequent fall, initial encounter; R41.0 Disorientation, unspecified; Y92.009 Unspecified place in unspecified non-institutional (private) residence as the place of occurrence of the external cause; R53.1 Weakness; N40.0 Benign prostatic hyperplasia without lower urinary tract symptoms; Z95.5 Presence of coronary angioplasty implant and graft; Z79.01 Long term (current) use of anticoagulants; Z79.899 Other long term (current) drug therapy
CPT/HCPCS: 36415; 70450; 71045; 80048; 80053; 80076; 81001; 83605; 83735; 84100; 85025; 85379; 85610; 87040; 87086; 87428; 93005; 94668; 97110; 97116; 97162; 97166; 97530; 97535; 99285; J7030; P9612

== ENCOUNTER → 2023-04-20 | Outpatient (CLI) | payer MEDICARE, OTHER, SELFPAY ==
--- OUTSIDE RECORDS SUMMARY | 2023-04-20 12:19 | XMS RPT_ITS | CCD ---
Author Name Unknown Address [address] [place] [address] Organization [facility] Care Team Providers Care Mold Inspector Name Role Phone Carlos Sheets Unavailable Unavailable UNKNOWN, PROVIDER Unavailable Unavailable Carlos Sheets Unavailable Unavailable Unknown, Referring Provider Unavailable Unav ailable None, No PCP Unavailable Unavailable Medications Completed/Discontinued Medications Medication Drug Class(es) Dates Sig (Normalized) Sig (Original) apixaban 5 mg oral tablet (8 sources) Factor Xa Inhibitor Eliquis 5 MG Oral Tablet Quantity: 0 Refills: 0 Ordered: 07-Mar-2021 DO Active benazepril hydrochloride 20 mg oral tablet (8 sources) Angiotensin Converting Enzyme Inhibitor Benazepril HCl - 20 MG Oral Tablet Quantity: 0 Refills: 0 Ordered: 07-Mar-2021 DO Active carvedilol 12.5 mg oral tablet (8 sources) alpha-Adrenergic Dae, beta-Adrenergic Dae Carvedilol 12.5 MG Oral Tablet Quantity: 0 Refills: 0 Ordered: 07-Mar-2021 DO Active dexamethasone 6 mg oral tablet (1 source) Corticosteroid Start: 06-22-19 21 Dexamethasone 6 MG Oral Tablet Quantity: 8 Refills: 0 Ordered: 21-Jun-2020 DO Start : 21-Jun-2020 Complete furosemide 20 mg oral tablet (1 source) Loop Diuretic Start: 07-04-19 21 Furosemide 20 MG Oral Tablet Quantity: 7 Refills: 0 Ordered: 03-Jul-2020 DO Start : 03-Jul-2020 Complete hydroCHLOROthiazide 12.5 mg oral tablet (8 sources) Thiazide Diuretic hydroCHLOROthi azide 12.5 MG Oral Tablet Quantity: 0 Refills: 0 Ordered: 07-Mar-2021 DO Active levoFLOXacin 500 mg oral tablet (1 source) Quinolone Antimicrobial Start: 07-04-19 21 levoFLOXacin 500 MG Oral Tablet Quantity: 14 Refills: 0 Ordered: 03-Jul-2020 DO Start : 03-Jul-2020 Complete oxyCODONE hydrochloride 1 mg/ml oral solution (1 source) Opioid Agonist Start: 04-11-19 take 5 mL by mouth every six hours as needed for pain oxyCODONE HCl - 5 MG/5ML Oral Solution TAKE 5 ML BY MOUTH EVERY 6 HOURS NEEDED FOR SEVERE PAIN Quantity: 140 Refills: 0 Ordered: 11-Apr-2021 DO Start : 11-Apr-2021 Complete rosuvastatin calcium 20 mg oral tablet (8 sources) HMG-CoA Reductase Inhibitor Crestor 20 MG Oral Tablet Quantity: 0 Refills: 0 Ordered: 07-Mar-2021 DO Active triamcinolone acetonide 0.001 mg/mg oral paste (1 source) Corticosteroid Start: 12-27-19 21 Triamcinolone Acetonide 0.1 % Mouth/Throat Paste Quantity: 5 Refills: 0 Ordered: 26-Dec-2020 DO Start : 26-Dec-2020 Complete Problems Active Problems Problem Classification Problem Date Documented Date Episodic/Chronic Cancer of head and neck (8 sources) Malignant tumor of tongue; Translations: [Malignant neoplasm of tongue, unspecified] Chronic Cardiac dysrhythmias (9 sources) Unspecified atrial fibrillation; Translations: [Chronic atrial fibrillation] Onset: 02-22-2017 Chronic Complications of surgical procedures or medical care (3 sources) Postoperative complication; Translations: [Hemorrhage complicating a procedure] Episodic Immunizations and screening for infectious disease (7 sources) Patient encounter status; Translations: [Other specified vaccination] Episodic Other acquired deformities (2 sources) Other forms of scoliosis, lumbosacral region; Translations: [Other forms of scoliosis, lumbosacral region] Onset: 02-22-2017 Chronic Spondylosis; intervertebral disc disorders; other back problems (2 sources) Other spondylosis, lumbar region; Translations: [Other spondylosis, lumbar region] Onset: 02-22-2017 Chronic Unclassified (2 sources) Pure hypercholesterolemia , unspecified; Translations: [Pure hypercholesterolemia , unspecified] Onset: 02-22-2017 Past or Other Problems Problem Classification Problem Date Documented Da te Episodic/Chronic Other connective tissue disease (2 sources) Myalgia; Translations: [Myalgia] Onset: 02-22-2017 Episodic Spondylosis; intervertebral disc disorders; other back problems (2 sources) Low back pain; Translations: [Low back pain] Onset: 02-22-2017 Episodic Unclassified (2 sources) Encounter for screening for malignant neoplasm of prostate; Translations: [Encounter for screening for malignant neoplasm of prostate] Onset: 02-22-2017 Episodic Results Test Name Value Interpretation Reference Range Facil ity Vital Signs Date Time Vital Sign Value Performing Clinician Facility 05-23-2021 10:23-0500 Body height 172.72 cm No PCP None [facility] Work Phone: 05-23-2021 10:23-0500 Body mass index (BMI) [Ratio] 32 kg/m2 No PCP None [facility] Work Phone: 05-23-2021 10:23-0500 Body surface area Derived from formula 2.09 m2 No PCP None [facility] Work Phone: 05-23-2021 10:23-0500 Body weight 95.46 kg No PCP None [facility] Work Phone: 04-15-2021 14:47-0500 Body height 172.72 cm No PCP None [facility] Work Phone: 04-15-2021 14:47-0500 Body mass index (BMI) [Ratio] 31.22 kg/m2 No PCP None [facility] Work Phone: 04-15-2021 14:47-0500 Body surface area Derived from formula 2.07 m2 No PCP None [facility] Work Phone: 04-15-2021 14:47-0500 Body temperature 206.24 [degF] No PCP None [facility] Work Phone: 04-15-2021 14:47-0500 Body weight 93.12 kg No PCP None [facility] Work Phone: 03-07-2021 08:57-0500 Body height 172.72 cm Referring Provider Unknown [facility] Work Phone: 03-07-2021 08:57-0500 Body mass index (BMI) [Ratio] 32.45 kg/m2 Referring Provider Unknown [facility] Work Phone: 03-07-2021 08:57-0500 Body surface area Derived from formula 2.1 m2 Referring Provider Unknown [facility] Work Phone: 03-07-2021 08:57-0500 Body temperature 97.34 [degF] Referring Provider Unknown [facility] Work Phone: 03-07-2021 08:57-0500 Body weight 96.8 kg Referring Provider Unknown [facility] Work Phone: Encounters Encounter Date Encounter Type Care Provider Facility Start: 05-23-2021 Postop follow up vis it related to original px No PCP None [facility] Work Phone: Start: 04-17-2021 Chart Update No PCP None [facility] [facility] Work Phone: Start: 04-15-2021 Telephone encounter No PCP None [facility] [facility] Work Phone: Start: [facility]20[facility]: Brock [facility], Status: Pen, Time: 12:00 PM Referring Provider Unknown XN-Mizcvxgmtirhvp-Xljwmz ke Work Phone: Start: 04-10-2021 Chart Update Referring Prov ider Unknown JT-Oyazmkwqdmwfxy-Frrnsm ke Work Phone: Start: 04-08-2021 Chart Update Referring Prov ider Unknown ZF-Ryyfiexpgilqee-Dol for Perioperative Med Work Phone: Start: 03-28-2021 Chart Update Referring Prov ider Unknown AZ-Rbkvbqlvwskshi-[facility] Work Phone: Start: 03-27-2021 AUDIT Referring Prov ider Unknown BR-Pjcfvjlbpbtjzc-Ghq for Perioperative Med Work Phone: Start: 03-07-2021 Office outpatient ne w 45 minutes Referring Provider Unknown NB-Wmgnvzhwsjjrfw-Khtmgz n Work Phone: Start: 02-22-2017 [facility] Procedures Date Procedure Procedure Detail Performing Clinician Start: 03-27-2021 Antibody screen Plan of Treatment Date Care Activity Detail Author Start: 05-16-2021 POV, Provider: Brock Chandra, Status: Pen, Time: 9:30 AM POV, Provider: Brock Chandra, Status: Pen, Time: 9:30 AM FJ-Cdoztipchaefvw-Ezqvvqhk Work Phone: Start: 04-18-2021 POV, Provider: Brock Chandra, Status: Pen, Time: 10:00 AM POV, Provider: Brock Chandra, Status: Pen, Time: 10:00 AM NQ-Xorwsndgbjvnll-Lwh for Perioperative Med Work Phone: Start: 04-11-2021 [facility], Provider: Brock Chandra, Status: Pen, Time: 12:00 PM [facility], Provider: Brock Chandra, Status: Pen, Time: 12:00 PM IQ-Niousrklaoinel-Vcg for Perioperative Med Work Phone: Start: 04-07-2021 [facility], Provider: Brock Chandra, Status: Pen, Time: 8:00 AM [facility], Provider: Brock Chandra, Status: Pen, Time: 8:00 AM JM-Bupjbvrmidrjsg-Pzn for Perioperative Med Work Phone: Immunizations Immunization Date Immunization Notes Care Provider Dang lema 06-03-2020 Pfizer-BioNTech COVID-19 Vacc 30 MCG/0.3ML Intramuscular Suspension Referring Provider Unknown HC-Jyhvfjtcxhqxdc-Qpm for Perioperative Med Work Phone: Payers Date Payer Category Payer Policy ID Medicare Unknown Clinical Note 04-18-2021 Note Date & Type Note Facility 04-18-2021 Note JOSSE TIRADO was pres ented at [facility] Conference Conference date: 18-Apr-2021 Presenting Provider(s): Dr. 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 The treating [facility] physician is not always present, and many of the physicians formulating the recommendation have not personally seen or examined the patient under discussion. It is understood that the treating [facility] physician considers the expertise of the Tumor Board Recommendation in formulating his/her plan for the patient. However, in many situations, based on individualized patient considerations, a different plan is determined by the treating physician to be the optimal medical management. Electronic Signatures: Ezio Baron (N MGR) (Signed 18-Apr-2021 08:38) Authored: Impression, Recommendations, Note, Disclaimer Last Updated: 18-Apr-2021 08:38 by Ezio Baron (N MGR) [facility] Clinical Note 04-11-2021 Note Date & Type Note Facility 04-11-2021 Note Post Operative Note: 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 direct laryngoscopy 2. bronchoscopy 3. esophogoscopy 4. left partial glossectomy 5. Surgeon: Dr. Brock Chandra Resident/Fellow/Other [place] Setter: Ross Harris MD Anesthesia: General Estimated Blood Loss (mL): 5cc Specimen: yes. left tongue sent for permanent Findings: 2cm left anterior tongue cancer, closed the defect primarily after resection Patient Returned To/Condition: PACU, stable, dispo home Attestation: Note Completion: I am a:Resident/Fellow Attending AttestationI was present for the entire procedure Electronic Signatures: Ross Harris (Resident)) (Signed 11-Apr-2021 13:20) Authored: Post Operative Note, Note Completion Brock Chandra) (Signed 12-Apr-2021 07:59) Authored: Note Completion Co-Signer: Post Operative Note, Note Completion Last Updated: 12-Apr-2021 07:59 by Brock Chandra) [facility] Clinical Note 04-11-2021 Note Date & Type Note Facility 04-11-2021 Note History of Present I llness: History Present Illness: Reason for surgery: tongue cancer HPI: HPI: 80y male with left anterior tongue squamous cell carcinoma. PMHx: Afib, HTN, HLD All: NKDA Former smoker Meds: Eliquis, carvedilol, HCTZ, statin, benazepril Allergies: Allergies: No Known Allergies: Home Medication Review: Home Medications Reviewed: yes Impression/Procedure: Impression and Planned Procedure: triple endoscopy, partial glossectomy ERAS (Enhanced Recovery After Surgery): ERAS Patient: no Physical Exam by System: Constitutional: NAD Respiratory/Thorax: NLB Cardiovascular: extremities WWP Consent: COVID-19 Consent: COVID-19 Risk ConsentSurgeon has reviewed toney risks related to the risk of tomas COVID-19 and if they contract COVID-19 what the risks are. Attestation: Note Completion: I am a: Resident/Fellow Attending AttestationI saw and evaluated the patient. I personally obtained the toney and critical portions of the history and physical exam or was physically present for toney and critical portions performed by the resident/fellow. I reviewed the resident/fellows documentation and discussed the patient with the resident/fellow. I agree with the resident/fellows medical decision making as documented in the note. I personally evaluated the patient [id number] Electronic Signatures: Ross Harris (Resident)) (Signed 11-Apr-2021 05:42) Authored: History of Present Illness, Allergies, Home Medication Review, Impression/Procedure, ERAS, Physical Exam, Consent, Note Completion Brock Chandra) (Signed 12-Apr-2021 07:54) Authored: Note Completion Co-Signer: History of Present Illness, Allergies, Home Medication Review, Impression/Procedure, ERAS, Physical Exam, Consent, Note Completion Last Updated: 12-Apr-2021 07:54 by Brock Chandra) [facility] History of Present illness Narrative 05-23-2020 Note Date & Type Note Facility 05-23-2020 History of Presen t illness Narrative This gentleman was seen at the request of a local colleague. He has had some discomfort on his tongue for long time but for the past year or so it has been more of a discomfort. 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 He had a CT scan of his neck that was done February 19, 2021. I personally reviewed that scan. We cannot appreciate a lesion. There is no evidence of any metastatic disease. On the April 11, 2021 he underwent a left partial glossectomy. He has had some issues postop with bleeding but that has not happened. He does have a little difficulty with his speech but very minimal. He does not have any further discomfort. OU-Vmrqmoduchrvap-Nzglumyq Work Phone: Clinical Note 05-02-2020 Note Date & Type Note Facility 05-02-2020 Note Patient Outreach ([facility]) JOSSE TIRADO ([id number]) 1940 M Date Time Provider Department 05/02/20 JOSEE WHEELER During your visit today, we recorded the following information about you: Allergies As of Date: 05/02/2020 (No Known Allergies) Date Reviewed: 02/06/2019 Reviewed by: Jennifer Jauregui LPN - Fully Assessed Order(s):SARS-COVID VACCINE 1ST DOSE APPT [[id number]] Order #: [id number] FUTURE Prescriptions as of 05/02/2020 Sig: ELIQUIS ORAL Take by mouth. INDAPAMIDE 1.25 MG TABLET Take 1.25 mg by mouth once da* ALBUTEROL SULFATE HFA 90 MCG/* Inhale 2 Puffs as instructed * CARVEDILOL 12.5 MG TABLET Take 12.5 mg by mouth twice d* ROSUVASTATIN 20 MG TABLET Take 20 mg by mouth once cheryl* BENAZEPRIL ORAL Take by mouth. Problem List As Of Date: 05/02/2020 (None) Letter Text Encounter Status:Closed by KATLIN, MADELINEUSER on 05/06/20 [facility] History of Present illness Narrative 03-07-2020 Note Date & Type Note Facility 03-07-2020 History of Presen t illness Narrative This gentleman is seen at the request of a local colleague. He has had some discomfort on his tongue for long time but for the past year or so it has been more of a discomfort. 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 He had a CT scan of his neck that was done February 19, 2021. I personally reviewed that scan. We cannot appreciate a lesion. There is no evidence of any metastatic disease. KE-Xozkkvgxhdfczz-Qxyoufk Work Phone: Chief complaint Narrative - Reported Note Date & Type Note Facility Chief complaint Narrative - Reported Consultation for the management of an anterior tongue cancer. RC-Spncepmifrfmyy-Nlijawp Work Phone: Summary Purpose Family History No Family History Records FoundNo Family History Records FoundNo Family History Records Found Advance Directives No Advanced Directives Records FoundNo Advanced Directives Records FoundNo Advanced Directives Records Found Chief Complaint Follow-up status post surgery for the management of an anterior tongue cancer. Additional Source Comments (unrecognized sect ion and content) No Status Records FoundNo Status Records FoundNo Status Records Found INFORMATION SOURCE (unrecogn ized section and content) DATE CREATED AUTHOR AUTHOR'S ORGANIZ ATION 04/25/2021 [facility] DATE CREATED AUTHOR AUTHOR'S ORGANIZ ATION 05/25/2021 [facility] FOR RECORDS PERTAINING TO PATIENTS WHO ARE OR HAVE BEEN ENROLLED IN A CHEMICAL DEPENDENCY/SUBSTANCEABUSE PROGRAM, SOME INFORMATION MAY BE OMITTED. This clinical summary was aggregated from multiple sources. Caution should be exercised in using it in the provision of clinical care. This summary normalizes information from multiple sources, and as a consequence, information in this document may materially change the coding, format and clinical context of patient data. In addition, data may be omitted in some cases. CLINICAL DECISIONS SHOULD BE BASED ON THE PRIMARY CLINICAL RECORDS. [employer] [facility]. provides no warranty or guarantee of the accuracy or completeness of information in this document.
[2023-04-20 13:01] LABS: Anion Gap 0 (5-15); BUN 13 mg/dL (7-18); BUN/Creat Ratio 15.6 RATIO (10-20); Calcium,Total 9.1 mg/dL (8.5-10.1); Chloride 106 mmol/L (98-107); Creatinine, Serum 0.83 mg/dL (0.70-1.30); EST Glomerular Filtration Rate 94 mL/min (>60); Est Glom Filt Rate - Afr Amer 114 mL/min (>60); Glucose 115 mg/dL (74-106); Potassium 4.3 mmol/L (3.5-5.1); Sodium Level 137 mmol/L (136-145)
== END | disposition home or self-care (01) ==
LOC: LAB 11:59
PROVIDERS: PCP Family Medicine; Referring Provider Internal Medicine Cardiovascular Disease; Visit Provider Internal Medicine Cardiovascular Disease
DX: R60.0 Localized edema (principal); E78.5 Hyperlipidemia, unspecified; I10 Essential (primary) hypertension; I25.10 Atherosclerotic heart disease of native coronary artery without angina pectoris
CPT/HCPCS: 36415; 80048

== ENCOUNTER → 2023-05-14 | Outpatient (CLI) | payer MEDICARE, OTHER, SELFPAY ==
--- NOTE | 2023-05-14 06:44 | ECHOD_ITS ---
Reason For Study: CAD/ASHD Procedure This was a 2D Doppler, Color Flow transthoracic echocardiogram. Exam performed in department. Left Ventricle Mild concentric left ventricular hypertrophy. Left ventricular systolic function is normal. The estimated ejection fraction is 60 %. Unable to assess diastolic dysfunction due to arrhythmia. No regional wall motion abnormalities noted. Right Ventricle Normal RV size. Normal systolic function. Atria There is severe biatrial dilatation. Mitral Valve The mitral valve is structurally normal. No prolapse or stenosis seen. Mild-Moderate (1-2+) mitral valve insufficiency. Tricuspid Valve Normal tricuspid valve. Mild to moderate (1-2+) tricuspid valve insufficiency. Right ventricular systolic pressure estimated to be 48 mmHg. Aortic Valve Trisinus/trileaflet aortic valve. Mild focal aortic valve thickening. Mild focal aortic valve calcification. Aortic sclerosis, no stenosis. Mild (1+) aortic valve insufficiency. Pulmonic Valve Normal pulmonic valve. Mild (1+) pulmonic valve insufficiency. Great Vessels Normal aortic root. Pericardium/Pleural No pericardial effusion. MMode/2D Measurements & Calculations LVIDd: 4.4 cm IVSd: 1.3 cm Ao root diam: 3.3 cm LVIDs: 3.1 cm LVPWd: 1.2 cm RVDd: 3.8 cm FS: 31.2 % LAV(MOD-bp): 102.4 ml LVAd ap4: 29.6 cm2 SV(MOD-sp4): 58.6 ml LAV(MOD-bp) Indexed: 47.8 ml/m2 LVLd ap4: 8.1 cm LAV(MOD-sp2): 93.4 ml EDV(MOD-sp4): 90.8 ml LAV(MOD-sp4): 104.1 ml EDV(sp4-el): 92.4 ml LVAs ap4: 16.2 cm2 LVLs ap4: 6.8 cm ESV(MOD-sp4): 32.1 ml ESV(sp4-el): 32.7 ml EF(MOD-sp4): 64.6 % EF(sp4-el): 64.6 % SV(sp4-el): 59.7 ml LA A4 area: 31.2 cm2 LA dimension(2D): 4.6 cm RA A4 area: 28.2 cm2 TAPSE: 1.8 cm Doppler Measurements & Calculations MV E max jasiel: 94.5 cm/sec Ao V2 max: 123.6 cm/sec LV V1 max: 88.5 cm/sec Ao max P.1 mmHg LV V1 max P.2 mmHg PA V2 max: 89.1 cm/sec TR max jasiel: 334.7 cm/sec TR max P.8 mmHg ECHO/Echo Complete Interpretation Summary The estimated ejection fraction is 60 %. Unable to assess diastolic dysfunction due to arrhythmia. Mild concentric left ventricular hypertrophy. There is severe biatrial dilatation. Mild-Moderate (1-2+) mitral valve insufficiency. Mild to moderate (1-2+) tricuspid valve insufficiency. Mild (1+) aortic valve insufficiency. Right ventricular systolic pressure estimated to be 48 mmHg. Ordering Physician: Emile Sorenson Referring Physician: KENTON GLASS Performed By: Subha Yo RDCS
--- OUTSIDE RECORDS SUMMARY | 2023-05-14 07:03 | XMS RPT_ITS | CCD ---
Author Name Unknown Address [address] [place] [address] Organization [facility] Care Team Providers Care Resident Care Manager Name Role Phone Carlos Sheets Unavailable Unavailable [...] 172.72 cm No PCP None [facility]-Otolaryngolog y -[place] Work Phone: 05-23-2021 10:23-0500 Body mass index (BMI) [Ratio] 32 kg/m2 No PCP None [facility] -[place] Work Phone: 05-23-2021 10:23-0500 Body surface area Derived from formula 2.09 m2 No PCP None [facility] -[place] Work Phone: 05-23-2021 10:23-0500 Body weight 95.46 kg No PCP None [facility] Work Phone: 04-15-2021 14:47-0500 Body height 172.72 cm No PCP None [facility] Work Phone: 04-15-2021 14:47-0500 Body mass index (BMI) [Ratio] 31.22 kg/m2 No PCP None [facility] Work Phone: 04-15-2021 14:47-0500 Body surface area Derived from formula 2.07 m2 No PCP None [facility] Work Phone: 04-15-2021 14:47-0500 Body temperature 206.24 [degF] No PCP None [facility]tol[facility] -[place] Work Phone: 04-15-2021 14:47-0500 Body weight 93.12 [...] related to original px No PCP None RI-Pasubauimlfxtg-Vyqjsc ke Work Phone: Start: 04-17-2021 Chart Update No PCP None [facility] Work Phone: Start: 04-15-2021 Telephone encounter No PCP None [facility] Work Phone: Start: 04-11-2021 [facility] Brock Chandra, Status: Pen, Time: 12:00 PM Referring Provider Unknown DF-Lmaeewfprnocqk-Qvtwmk ke Work Phone: Start: 04-10-2021 Chart Update Referring Prov ider Unknown QB-Arzqdmdqvannxe-Npekjg ke Work Phone: Start: 04-08-2021 Chart Update Referring Prov ider Unknown PA-Joksmesgbnossd-Kkl for Perioperative Med Work Phone: Start: 03-28-2021 Chart Update Referring Prov ider Unknown IR-Ubhbigyrseekxd-Ncbpmx ke Work Phone: Start: 03-27-2021 AUDIT Referring Prov ider Unknown UT-Ltqltsgizwkphl-Jkn for Perioperative Med Work Phone: Start: 03-07-2021 Office outpatient ne w 45 minutes Referring Provider Unknown VT-Xyyjxvnmagwtse-Uubmhn n Work Phone: Start: 02-22-2017 [facility] Procedures Date Procedure Procedure Detail Performing Clinician Start: 03-27-2021 Antibody screen Plan of Treatment Date Care Activity Detail Author Start: 05-16-2021 POV, Provider: Brock Chandra, Status: Pen, Time: 9:30 AM POV, Provider: Brock Chandra, Status: Pen, Time: 9:30 AM BN-Smskpkicnlubmx-Qtckhbuh Work Phone: Start: 04-18-2021 POV, Provider: Brock Chandra, Status: Pen, Time: 10:00 AM POV, Provider: Brock Chandra, Status: Pen, Time: 10:00 AM XM-Iapeotdytplakg-Rhw for Perioperative Med Work Phone: Start: 04-11-2021 [facility], Provider: Brock Chandra, Status: Pen, Time: 12:00 PM [facility], Provider: Brock Chandra, Status: Pen, Time: 12:00 PM MV-Cskwqjimltcuul-Qdp for Perioperative Med Work Phone: Start: 04-07-2021 [facility], Provider: Brock Chandra, Status: Pen, Time: 8:00 AM [facility], Provider: Brock Chandra, Status: Pen, Time: 8:00 AM VY-Bvodafboyiryjy-Ceg for Perioperative Med Work Phone: Immunizations Immunization Date Immunization Notes Care Provider Dang lema 06-03-2020 Pfizer-BioNTech COVID-19 Vacc 30 MCG/0.3ML Intramuscular Suspension Referring Provider Unknown BW-Vyrqswybuocmys-Snk for Perioperative Med Work Phone: Payers Date [...] 18-Apr-2021 08:38 by Ezio Baron (N MGR) [facility] Clinical Note 04-11-2021 Note Date & Type Note Facility 04-11-2021 Note Post Operative Note: 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 direct laryngoscopy 2. bronchoscopy 3. esophogoscopy 4. left partial glossectomy 5. Surgeon: Dr. Brock Chandra Resident/Fellow/Other Supportive Employment Case Manager: Ross Harris MD Anesthesia: General Estimated Blood [...] Last Updated: 12-Apr-2021 07:59 by Brock Chandra) [facility] Clinical Note 04-11-2021 Note Date & Type [...] the note. I personally evaluated the patient [id number] Electronic Signatures: Ross Harris (Resident)) (Signed 11-Apr-2021 05:42) Authored: History of Present Illness, Allergies, Home Medication Review, Impression/Procedure, ERAS, Physical Exam, Consent, Note Completion Brock Chandra) (Signed 12-Apr-2021 07:54) Authored: Note Completion Co-Signer: History of Present Illness, Allergies, Home Medication Review, Impression/Procedure, ERAS, Physical Exam, Consent, Note Completion Last Updated: 12-Apr-2021 07:54 by Brock Chandra) [facility] History of Present illness Narrative 05-23-2020 Note [...] He does not have any further discomfort. VJ-Vmtbzlvtahmiec-Hjqhawmf Work Phone: Clinical Note 05-02-2020 Note Date & Type Note Facility 05-02-2020 Note Patient Outreach ([place] [facility]) JOSSE TIRADO ([id number]) 1940 M Date Time Provider Department 05/02/20 JOSEE WHEELER During your visit today, we recorded the following information about you: Allergies As of Date: 05/02/2020 (No Known Allergies) Date Reviewed: 02/06/2019 Reviewed by: Jennifer Jauregui LPN - Fully Assessed Order(s):SARS-COVID VACCINE 1ST DOSE APPT [[id number]] Order #: [id number] FUTURE Prescriptions as of 05/02/2020 Sig: ELIQUIS [...] Encounter Status:Closed by KATLIN, MADELINEUSER on 05/06/20 [facility] History of Present illness Narrative 03-07-2020 Note [...] is no evidence of any metastatic disease. NZ-Eyvptcmjzfnvvm-Txbbhju Work Phone: Chief complaint Narrative - Reported Note Date & Type Note Facility Chief complaint Narrative - Reported Consultation for the management of an anterior tongue cancer. HW-Xefsilihhuogpt-Ifwqgte Work Phone: Summary Purpose Family History No [...] DATE CREATED AUTHOR AUTHOR'S ORGANIZ ATION 04/25/2021 [facility] DATE CREATED AUTHOR AUTHOR'S ORGANIZ ATION 05/25/2021 [facility] FOR RECORDS PERTAINING TO PATIENTS WHO ARE [...] BE BASED ON THE PRIMARY CLINICAL RECORDS. [employer] [facility]. provides no warranty or guarantee of the accuracy or completeness of information in this document.
--- NOTE | 2023-05-20 12:45 | STRESSREP ---
Stress Test Report Date: 05/14/2023 Procedure: Pharmacologic stress nuclear imaging study Indications: Dyspnea on exertion Consent: Per the patient Procedure: The patient underwent pharmacologic (Regadenoson 0.4mg ) evaluation with a peak heart rate of 78 beats per minute (55%predicted maximal heart rate) and a peak blood pressure of 160/94 mmHg. The baseline ECG demonstrated atrial fibrillation. The peak pharmacologic ECG demonstrated no ischemic changes. There were no cardiac dysrhythmias pretest, during pharmacologic infusion, or recovery. There was no complaint of chest discomfort during pharmacologic infusion or recovery. The patient was injected with 13.9 millicuries of technetium 99m Cardiolite and subsequently rest SPECT Cardiolite nuclear imaging was obtained in the horizontal long, vertical long, and short axis views. The patient underwent pharmacologic (Regadenoson) evaluation. The patient was injected with 43.6 millicuries of technetium 99m Cardiolite and subsequently stress SPECT Cardiolite nuclear imaging was obtained in the horizontal long, vertical long, and short axis views. A gated Cardiolite study at peak stress was obtained. The examination was stopped secondary to completion of protocol. Rest and stress SPECT Cardiolite nuclear imaging status post realignment, normalization, and attenuation correction demonstrate small reversible perfusion defect of the distal anterior wall and apex. There is end systolic thickening and brightening. The gated Cardiolite study demonstrates myocardial thickening and inward wall motion. The reported LVEF is 66%. Impression: 1. Pharmacologic (Regadenoson) evaluation 2. Peak pharmacologic ECG with no diagnostic ischemic changes. 3. Baseline atrial fibrillation. 5. Small reversible perfusion defect of the apex suggestive of mild ischemia. 6. The gated Cardiolite study reports an LVEF of 66%. This note was generated with [employer] (formerly [employer])ation software. It may contain incorrect words, spelling, and punctuation that were not noted in checking the note before signing.
== END | disposition home or self-care (01) ==
LOC: CVS 06:44
PROVIDERS: PCP Family Medicine; Referring Provider Internal Medicine Cardiovascular Disease; Visit Provider Internal Medicine Cardiovascular Disease
DX: I25.10 Atherosclerotic heart disease of native coronary artery without angina pectoris (principal); R06.09 Other forms of dyspnea
CPT/HCPCS: 78452; 93017; 93306; A9500; A4216; J2785

== ENCOUNTER 2023-06-08 11:48 | Observation (INO) | payer MEDICARE, OTHER, SELFPAY ==
--- NOTE | 2023-06-03 16:46 | HP.PCM_ITS ---
History and Physical Date of Admission: 06/08/23 This patient has past medical history significant for coronary artery disease status post percutaneous intervention in the early , hypertension and dyslipidemia. Denies any chest pains either at rest or with exertion. He does have shortness of breath with moderate to strenuous exertion. Denies orthopnea. No PND. He does have chronic lower extremity edema. Occasionally feels lightheaded. No syncope or presyncope. Intake Vital Signs: See EMR Intake Visit Reasons: [facility] Allergies ezetimibe [From Vytorin] Allergy (Intermediate, Verified 04/12/23 14:52) Unknown simvastatin [From Vytorin] Allergy (Intermediate, Verified 04/12/23 14:52) Unknown adhesive tape [surgical tape] Adverse Reaction (Verified 04/12/23 14:52) Rash Medications See EMR Ejection fraction %: 60 to 64 [facility] Medical History (Updated 04/12/23 @ 15:[address] Emile Sorenson MD) Atherosclerosis of coronary artery of [place] heart without angina pectoris Atrial fibrillation Back pain BPH (benign prostatic hyperplasia) Chronic atrial fibrillation COVID-19 Essential hypertension Hemorrhoids History of cardioversion History of fall Hyperlipidemia MGUS (monoclonal gammopathy of unknown significance) Sternal fracture (~03/08/19) Tongue carcinoma Umbilical hernia Surgical History History of cataract extraction with lens replacement History of cholecystectomy History of extraction of renal calculus Presence of stent in coronary artery tongue surgery Family History Mother , Age 86 Heart disease CAD (coronary artery disease) Diabetes HypertensionFather AAA (abdominal aortic aneurysm) Colon cancerSister Cancer bladder and uterusBrother Cancer prostate HypertensionGrandmother DiabetesSister Hypertension Social History Smoking Status: Never smoker alcohol intake: current alcohol intake frequency: holidays/special occasions only substance use type: does not use caffeine: Yes Type: coffee Number of servings: 2 ROS Const Const: Positive for fatigue and weakness; Negative for headache(s), frequent falls, difficulty sleeping or excessive sweating Eyes Eyes: Negative for loss of peripheral vision, transient loss of vision, blurry vision, double vision or tunnel vision ENT ENT: Positive for dizziness and balance problems (Uses cane due to dizziness and lightheadedness.); Negative for headache(s) or Nosebleed/epistaxis Cardio Chest Pain: No Palpitations: No Edema: Bilateral Muscle aches with walking: None Resp Respiratory: Positive for SOB with activity; Negative for SOB at rest, SOB orthopnea\SOB lying down, Cough or paroxysmal nocturnal dyspnea GI GI: Negative nausea, vomiting, heartburn or black,tarry stools : Negative for hematuria Musc Musc: Positive for balance problems (Uses cane due to dizziness and lightheadedness.); Negative for muscle aches/ myalgia, muscle weakness or joint pain Skin Skin: Negative non-healing lesions, rash or unusual bruising Neuro Neuro: Positive for dizziness, lightheadedness and weakness; Negative for near syncope, syncope, frequent falls, headache(s), blurry vision, double vision or lack of coordination David Hematologic/Lymphatic: Negative for easy bleeding or easy bruising Endo Endo: Positive for fatigue; Negative for excessive sweating or increased thirst/drinking Psych Psych: Negative for anxiety or depression Allergy Allergy/Immunology: Negative for hives and Negative for rash Cardiology Exam Const Appearance: comfortable and no acute distress Nutritional Appearance: well nourished Neck Neck: no JVD Carotids: Negative bruit Chest Auscultation: Bilateral: Clear to Auscultation Cardio Rhythm: irregularly irregular Heart sounds: S1 normal and S2 normal Neuro General: patient alert, patient awake and patient oriented x3 Extremities Lower Extremity Edema: +2: Bilateral Supplemental Info Supplemental Information Echocardiogram 03/07/2019: The estimated ejection fraction is 60 %. Diastolic function is indeterminate. Moderately dilated right ventricle. The left atrium is mildly enlarged. The right atrium is moderately enlarged. Mild (1+) mitral valve insufficiency. Pulmonary artery systolic pressure is 45-50 mmHg. Aortic sclerosis, no stenosis. Trivial aortic valve insufficiency. Stress Test Report 08-01-2020 Procedure: Pharmacologic stress nuclear imaging study Indications: Shortness of breath/dyspnea on exertion; CAD; PCI Consent: Per the patient Procedure: The patient underwent pharmacologic (Regadenoson 0.4mg ) evaluation with a peak heart rate of 95 beats per minute (66%predicted maximal heart rate) and a peak blood pressure of 122/86 mmHg. The baseline ECG demonstrated atrial fibrillation. The peak pharmacologic ECG demonstrated no obvious ECG changes. There was a rare PVC during recovery. There was no complaint of chest discomfort during pharmacologic infusion or recovery. The examination was discontinued secondary to completion of protocol. Impression: 1. Pharmacologic (Regadenoson) evaluation 2. Peak pharmacologic ECG with no obvious ECG changes. 3. There was a rare PVC during recovery. 4. Nuclear images pending Myocardial perfusion imaging study: Technique: The patient was injected with 11.9 millicuries of technetium 99m Cardiolite and subsequently rest SPECT Cardiolite nuclear imaging was obtained in the horizo ntal long, vertical long, and short axis views. The patient underwent pharmacologic (Regadenoson) evaluation with a peak heart rate of 95 beats per minute (66% percent predicted maximal heart rate) and a peak blood pressure of 122/86 mmHg. The patient was injected with 33.4 millicuries of technetium 99m Cardiolite and subsequently stress SPECT Cardiolite nuclear imaging was obtained in the horizontal long, vertical long, and short axis views. A gated Cardiolite study at peak stress was obtained. Interpretation: Rest and stress SPECT Cardiolite nuclear imaging status post realignment, normalization, and attenuation correction demonstrate a small area of diminished myocardial perfusion/tracer uptake near the apical segments without significant change between rest and stress. There is end systolic thickening and brightening. The gated Cardiolite study demonstrates myocardial thickening and inward wall motion. The reported LVEF is 72%. Impression: 1. Rest and stress SPECT cardiac nuclear imaging demonstrate myocardial perfusion changes appearing compatible with an element of physiologic apical thinning with no myocardial perfusion changes considered diagnostic for associated stress-induced myocardial ischemia. 2. The gated Cardiolite study reports an LVEF of 72%. Assessment and Plan Assessment and Plan (1) LUNA (dyspnea on exertion): Status: Chronic Plan: To assess this further he underwent echocardiogram on 05/14/2023 that showed ejection fraction of 60% and an RVSP of 48 mmHg. He had stress test at that same time that showed small reversible perfusion defect of the apex suggestive of mild ischemia. On account of abnormal stress test, he will proceed with heart catheterization. (2) Presence of stent in coronary artery: Status: Chronic Comment: 3.0 x 16mm Taxus II ALOK to dLCx 01/27/05 Plan: On apixaban. (3) Coronary artery disease: Status: Chronic Plan: Continue carvedilol. Risk factor modification. On apixaban. See #1 above. (4) Chronic atrial fibrillation: Status: Chronic Plan: Ventricular rate controlled with carvedilol. On apixaban. (5) Hypertension: Status: Chronic Plan: During office appointment in March 2023, his benazepril was increased to 20 mg p.o. daily and he was started on Lasix 20 mg p.o. daily. We will monitor and adjust medication as needed. (6) Dyslipidemia: Status: Chronic Plan: On rosuvastatin. As per primary care physician. (7) Lower extremity edema: Status: Chronic Plan: He was started on Lasix and potassium therapy. We will continue to monitor.
[2023-06-07 08:41] VITALS: BMI 33.9
[2023-06-08] VITALS (10 sets, daily range): BP systolic 106–150; BP diastolic 61–93; PULSE 55–77; RESP 14–18; TEMP 36.4–36.5; O2SAT 96–100; BMI 33.1
--- NOTE | 2023-06-08 11:49 | DCINST_ITS ---
Discharge Instructions Diet Discharge Diet: Low fat / Low cholesterol Activity Discharge Activity: Return to Normal Activity May resume sexual activity in: No Restrictions Dressing / Incision Call your doctor if your incision/area has: Continuous Slow Oozing, Sudden Increased Bleeding, Increased Pain/ Swelling, Increased Redness and Foul Smelling Discharge Follow Up Care Please Follow Up With: Emile Sorenson MD When: 2-4 weeks Test Results: Test results from this visit will be discussed in further detail at your follow- up appointment, if applicable. Discharge Plan Admission Attending Provider: Emile Sorenson Primary Care Provider: Abdirizak Dillon Discharge Orders/Prescriptions Prescriptions: No Action rosuvastatin 20 mg tablet 20 mg PO QHS benazepril 20 mg tablet 20 mg PO DAILY Qty: 90 3RF furosemide 20 mg tablet 20 mg PO DAILY Qty: 90 3RF carvedilol 6.25 mg tablet 6.25 mg PO BID Qty: 180 3RF Rx Instructions: must administer with a meal/food apixaban 5 mg tablet 5 mg PO BID Qty: 180 3RF Referrals / Follow Up: Abdirizak Dillon MD [Primary Care Provider] - Disposition Disposition (needs filled in before D/C Order can be placed): Home, Self Care
--- NOTE | 2023-06-08 11:51 | DCINST_ITS ---
Discharge Instructions Diet Discharge Diet: Low fat / Low cholesterol Activity May resume sexual activity in: No Restrictions Dressing / Incision Call your doctor if your incision/area has: Continuous Slow Oozing, Sudden Increased Bleeding, Increased Pain/ Swelling, Increased Redness and Foul Smelling Discharge Follow Up Care Please Follow Up With: Emile Sorenson MD Test Results: Test results from this visit will be discussed in further detail at your follow- up appointment, if applicable. Discharge Plan Admission Attending Provider: Emile Sorenson Primary Care Provider: Abdirizak Dillon Discharge Orders/Prescriptions Prescriptions: New clopidogrel 75 mg Tablet 75 mg PO DAILY Qty: 30 11RF Continued rosuvastatin 20 mg tablet 20 mg PO QHS benazepril 20 mg tablet 20 mg PO DAILY Qty: 90 3RF furosemide 20 mg tablet 20 mg PO DAILY Qty: 90 3RF carvedilol 6.25 mg tablet 6.25 mg PO BID Qty: 180 3RF Rx Instructions: must administer with a meal/food apixaban 5 mg tablet 5 mg PO BID Qty: 180 3RF Referrals / Follow Up: Abdirizak Dillon MD [Primary Care Provider] - Disposition Disposition (needs filled in before D/C Order can be placed): Home, Self Care
[2023-06-08] MEDS: 0.9% Normal Saline (1000mL) 1,000 ML 150 ML IV (13:47)
[2023-06-08 16:24] LABS: ACT Activated Clotting Time 277 sec (74-137)
--- NOTE | 2023-06-08 16:50 | EKG12_ITS ---
Test Reason : AM Blood Pressure : / mmHG Vent. Rate : 066 BPM Atrial Rate : 000 BPM P-R Int : 000 ms QRS Dur : 088 ms QT Int : 412 ms P-R-T Axes : 000 -13 -14 degrees QTc Int : 431 ms Atrial fibrillation Abnormal ECG When compared with ECG of 08-JUN-2023 15:37, MANUAL COMPARISON REQUIRED, DATA IS UNCONFIRMED Confirmed by Levar Walker ([id number]), slot editor KAYA KENNEDY ([id number]) on 06/10/2023 11:09:31 AM Referred By: Emile Sorenson Confirmed By:Levar Walker
[2023-06-08] MEDS: Clopidogrel Bisulfate 300 MG Tablet PO (18:30)
[2023-06-08] MEDS: Atorvastatin Calcium 40 MG Tablet PO (21:39)
[2023-06-08] MEDS: Carvedilol 6.25 MG Tablet PO (21:40)
[2023-06-08] MEDS: APIXABAN 5 MG TABLET PO (21:40)
[2023-06-09 04:17] VITALS: BP 139/84; PULSE 70; RESP 16; TEMP 36.4; O2SAT 95
[2023-06-09 06:55] VITALS: O2SAT 93
[2023-06-09 08:09] LABS: Hemoglobin 15.3 g/dL (13.0-16.5); Mean Corp Hgb Conc 34.8 g/dL (32-36); Mean Corpuscular Hgb 30.8 pg (27.0-32.0); Mean Corpuscular Volume 88.5 fL (80-94); Mean Platelet Vol. 11.6 fl (6.2-12.0); Platelet Count 142 K/mm3 (150-450); RBC Distribution Width CV 15.3 % (11.6-14.6); RBC Distribution Width SD 49.6 fl (35.1-43.9); Red Blood Count 4.97 M/mm3 (4.6-6.2); White Blood Count 5.8 K/mm3 (4.4-11.0)
--- NOTE | 2023-06-09 08:40 | CL.I_ITS ---
Patient Name: JOSSE TIRADO Study Date: 06/08/2023 Performing: Emile Sorenson MD Ht: 68 inches 172.72 cm : 1940 Wt: 223.3 lbs 101.15 kg Age: 83 Gender: male BSA: 2.14 PROCEDURE(S) PERFORMED DC02-(57022)LHC/COR IC10-([id number])FFR, CORONARY OR GRAFT, INITIAL VESSEL [id number] INTRAVASCULAR LITHOTRIPSY IC12-(14401/C9600)ALOK W/WO PTCA, SINGLE CORONARY ARTERY CLINICAL PROFILE AND CO-MORBIDITIES Indications: Stable Known CAD Heart Failure: None Stress/Imaging Stress Test w/SPECT MPI: Yes Result: Positive Low Risk Stress Test with SPECT MPI: Positive Low Risk Angina Classification Anginal Classification w/in 2 Weeks: Anginal Equivalent Dyspnea CONCLUSIONS 70% Prox/Mid LAD (iFR 0.89); 70% distal LAD 60% ISR distal LCX 70% Prox RCA (non-dominant) 3.5x22 mm Successful ALOK distal LAD using Victoria Lithia 2.5x18 mm, post-dilated using 2.75 mm balloon RECOMMENDATIONS ASA Indefinitley Plavix for at least 12 months DESCRIPTION OF PROCEDURE The patient arrived to the procedure lab. The risks and benefits of the procedure as well as a full description of our services here and lack of surgical backup were fully explained to the patient and/or their significant other prior to the catheterization. The Timeout was completed, verifying the correct patient and procedure. The patient's procedural site was prepped and draped in the usual fashion. Local anesthetic was given subcutaneously to right radial region with Lidocaine 2%. Using a modified Seldinger technique, arterial access was obtained via the right radial artery, a 6Fr sheath was inserted.. Right Coronary Artery selective angiography was then performed in multiple views using a 5 Fr. 4.0 [place] catheter. Left Coronary Artery selective angiography was performed in multiple views using a 5 Fr. JL4 catheter XB 3.0 Guide catheter was inserted and engaged into the LCA. The FFR/iFR wire was inserted. Pressures and FFR/iFR were then recorded. iFR Ratio: 0.90 iFR Ratio: 0.89 The FFR/iFR wire was left in place as guide wire. Runthrough Guide wire was advanced to the LAD. The FFR/iFR wire was then removed. Krysta Lithia 3.5 x 22 Drug Eluting stent was inserted. Drug Eluting stent was advanced across the lesion in the LAD, proximal. NC Emerge 3.50 x 12 Balloon catheter was inserted. Balloon catheter was advanced across lesion in the LAD, proximal. Angiogram performed post balloon dilatation. Victoria Lithia 2.5 x 18 Drug Eluting stent was inserted. Drug Eluting stent was advanced across the lesion in the LAD, mid. NC Emerge 2.75 x 15 Balloon catheter was inserted. Balloon catheter was advanced across lesion in the LAD, mid. Angiogram performed post balloon dilatation. Angiogram performed post balloon dilatation. The arterial sheath was pulled and a TR Band was applied for hemostasis CORONARY ANGIOGRAPHY DOMINANCE: Left Dominant LEFT MAIN: Angiographically normal LEFT ANTERIOR DESCENDING ARTERY: LAD: Calcified 70% Proximal lesion in LAD Tubular 70% Distal lesion in LAD DIAGONAL 1: Tubular 50% Ostial lesion in DIAG1 RIGHT CORONARY ARTERY: RCA: Tubular 70% Proximal lesion in RCA INTERVENTION INFORMATION LESION SITE: LAD (Proximal) Lesion Complexity: High/C, lesion length: 20 mm Pre Stenosis: 70 % Pre intervention MICHELLE flow: 3 PROCEDURE: Drug Eluting Stent with pre and post dilatation, Shockwave Lithotripsy Post Stenosis: 0 % Post intervention MICHELLE flow: 3 Lesion Devices: Cordis 6 Fr XB3.0 100cm Guide Catheter Terumo .014 180cm Runthrough Extra Floppy straight [employer] Shockwave IVL 3.0x12 Medtronic 3.5 x 22 KRYSTA FRONTIER ALOK [employer] NC EMERGE MR 3.50x12 BALLOON LESION SITE: LAD (Mid) Lesion Complexity: Non-High/Non-C, lesion length: 16 mm Pre Stenosis: 70 % Pre intervention MICHELLE flow: 3 PROCEDURE: Drug Eluting Stent with post dilatation Post Stenosis: 0 % Post intervention MICHELLE flow: 3 Lesion Devices: Cordis 6 Fr XB3.0 100cm Guide Catheter Terumo .014 180cm Runthrough Extra Floppy straight Medtronic 2.50 x 18 KRYSTA FRONTIER ALOK [employer] NC EMERGE MR 2.75x15 BALLOON COMPLICATIONS No Complications PROCEDURE MEDICATIONS Versed 1 mg IV Fentanyl 50 mcg IV Oxygen: 2 L/min via nasal cannula Aspirin (325mg) 1 Tabs PO 06/08/2023 08:49:19 Brilinta 180 mg PO @ 06/08/2023 10:59:25 Heparin given IA 06/08/2023 10:26:53 Heparin 7000 unit(s) IV 06/08/2023 10:37:22 Heparin 2000 unit(s) IV 06/08/2023 11:11:01 Nitro 200 mcg IC 06/08/2023 11:05:24 Nitro 200 mcg IC 06/08/2023 11:05:24 Nitro 200 mcg IC 06/08/2023 11:15:41 Verapamil 2.5mg, Ntg 200mcgs, 2000 units of Heparin given IA 06/08/2023 10:26:53 IV Bolus: .9 NaCl 250 ml total 06/08/2023 10:30:26 SUMMARY OF HEMODYNAMIC DATA Time AIR REST ECG 08:47:08 AO 142/95 (118) SA 10:28:42 Signed By Emile Sorenson MD On 06/09/2023 08:39:21 Emile Sorenson MD
--- NOTE | 2023-06-09 08:46 | CRPHASE1_ITS ---
Patient Communication Patient Information Former Patient:: Phase I PHII Cardiac Rehab Discussed with Patient:: Yes Guide to Cardiac Rehab Given to Patient:: Yes Cardiac Rehab Facility Choice List Given to Patient:: Yes Communication to Cardiac Rehab Choice Program [facility] CR PHII:: Communication Given to CR and Refer to [facility] Choice Program Other:: Communication Given to CR English Horn Player:: Emile Sorenson Post Discharge Phase I Charge:: Level I - Education Medical/Surgical History Medical History Angina:: Yes CAD:: Yes Congestive Heart Failure: Pulmonary:: Yes Hypertension:: Yes CVA/TIA: Ambulation Ambulation Notes:: can stand and pivot unable to walk long distance Cardiac Rehabilitation Info Program Information Cardiac Rehabilitation Program Information: Cardiac Rehab The cardiac rehab team at [facility] consists of highly skilled exercise physiologists, nurses, respiratory therapists and physicians working together with you. Our purpose is to help you have a full recovery and achieve the goals you set for yourself. Over the years many of our patients have returned to activities they assumed they would never do again! We can help restore your confidence and motivation to make lifestyle changes that can have a significant impact on your health and quality of life! We can help answer questions and concerns you may have about exercise, lifestyle, medications, diet, stress and anxiety which are common following a hospitalization. WE monitor ECG and vital signs during exercise and discuss your progress with you and report to your physician(s). Cardiac Rehab is proven to help reduce readmissions, improve functional capacity and lower recurrence of problems with your heart. Our Cardiac Rehab program is Certified by the [place] [employer] Pulmonary [employer] (AACVPR) and Accredited by the [place] [employer] through our [facility]. You can contact us at . We invite you to call us with your questions or to get started in our program. If you have other questions or concerns be sure to ask your physician/provider during your follow-up visit. WE look forward to seeing you!
--- NOTE | 2023-06-09 08:48 | CRPH1.INSTRU ---
General Education Discussed with Patient CAD and cardiac anatomy and function:: Patient communicates acknowledgment and Family communicates acknowledgment Explanation of diagnoses and procedures:: Patient communicates acknowledgment and Family communicates acknowledgment Sign/Symptoms of DC:: Patient communicates acknowledgment and Family communicates acknowledgment Antiplatelet therapy: Patient communicates acknowledgment and Family communicates acknowledgment Proper use of NTG-SL: Patient communicates acknowledgment and Family communicates acknowledgment Emergency procedures and activation of EMS: Patient communicates acknowledgment and Family communicates acknowledgment Compliance of all prescribed medications: Patient communicates acknowledgment and Family communicates acknowledgment Smoking Risk Factors Patient Nicotine/Smoking Risk Factors Are:: Never smoked Dyslipidemia Risk Factors Patient Dyslipidemia Risk Factors Are:: Total Cholesterol, Triglycerides, HDL and LDL Recommendations Recommendations Include:: Lipid profile provided, Lipid profile not available and Therapeutic Lifestyle Change dietary guidelines Response Code Dyslipidemia Response Code:: Patient communicates acknowledgment Overweight/Obesity Recommendations Recommendations Include:: Weight loss of 5-10%, Reduced calorie diet and Exercise 5-7 times/week Response Code Overweight/Obesity:: Patient communicates acknowledgment and Family communicates acknowledgment Hypertension Recommendations Recommendations Include:: Maintain BP <130/85 and Decrease/maintain normal body weight Response Code Hypertension:: Patient communicates acknowledgment and Family communicates acknowledgment Heart Disease Risk Factors Patient Heart Disease Risk Factors Are:: Family history of heart disease < 65 years old and Previous cardiac event Recommendations Recommendations Include:: Educated family members of their risk and Educated family members of importance of prevention of heart disease Response Code Heart Disease Response Code:: Patient communicates acknowledgment and Family communicates acknowledgment Diabetes Response Code Diabetes:: Not instructed Metabolic Syndrome Risk Factors Patient Metabolic Syndrome Risk Factors Are [3 of 5]:: Waist circumference > 35 [female] or 40 [male], High triglyceride >150 and Hypertension Recommendations Recommendations Include:: Reinforce compliance to risk factor modifications Response Code Metabolic Syndrome Response Code:: Patient communicates acknowledgment and Family communicates acknowledgment Sedentary Recommendations Recommendations Include:: Aerobic exercise 5-7 times/week for 20-30 minutes continuously and Benefits of regular exercise Response Code Sedentary Response Code:: Patient communicates acknowledgment and Family communicates acknowledgment Stress Recommendations Recommendations Include:: Identification of stressors, and assessment of coping skills and Stress management techniques Response Code Stress Response Code:: Patient communicates acknowledgment and Family communicates acknowledgment
[2023-06-09 09:28] VITALS: BP 147/85; PULSE 86; RESP 16; TEMP 36.7; O2SAT 96
[2023-06-09] MEDS: Lisinopril 20 MG Tablet PO (09:35)
[2023-06-09] MEDS: Docusate Sodium 100 MG Capsule PO (09:36)
[2023-06-09] MEDS: APIXABAN 5 MG TABLET PO (09:36)
[2023-06-09] MEDS: Carvedilol 6.25 MG Tablet PO (09:36)
[2023-06-09] MEDS: Furosemide 20 MG Tablet PO (09:36)
[2023-06-09] MEDS: Clopidogrel Bisulfate 75 MG Tablet PO (09:36)
[2023-06-09 09:46] LABS: ALB/GLOB Ratio 1.3 RATIO (0.9-2.4); AST(SGOT) 21 U/L (15-37); Alanine Aminotransfer ALT/SGPT 17 U/L (16-61); Albumin, Serum 3.5 g/dL (3.2-5.0); Alkaline Phosphatase 66 U/L (45-117); Anion Gap 8 (5-15); BUN 13 mg/dL (7-18); BUN/Creat Ratio 15.8 RATIO (10-20); Calcium,Total 8.6 mg/dL (8.5-10.1); Chloride 113 mmol/L (98-107); Creatinine, Serum 0.82 mg/dL (0.70-1.30); EST Glomerular Filtration Rate 95 mL/min (>60); Est Glom Filt Rate - Afr Amer 115 mL/min (>60); Globulin 2.7 g/dL (2.2-4.2); Glucose 108 mg/dL (74-106); Potassium 3.6 mmol/L (3.5-5.1); Protein, Total 6.2 g/dL (6.4-8.2); Sodium Level 142 mmol/L (136-145)
--- NOTE | 2023-06-09 10:00 | EKG12_ITS ---
Test Reason : POST STENT Blood Pressure : / mmHG Vent. Rate : 055 BPM Atrial Rate : 037 BPM P-R Int : 000 ms QRS Dur : 082 ms QT Int : 408 ms P-R-T Axes : 000 -12 -05 degrees QTc Int : 390 ms Atrial fibrillation Abnormal ECG When compared with ECG of 26-FEB-2023 20:39, No significant change was found Confirmed by Levar Walker ([id number]), scientific editor KAYA KENNEDY ([id number]) on 06/10/2023 11:13:03 AM Referred By: Emile Sorenson Confirmed By:Levar Walker
--- NOTE | 2023-06-09 10:00 | CASEMGMT ---
ANGELA GOLDSMITH NOTE: Discharge order is in. 6 clicks: 20. No therapy ordered. RN CM to room. Pt sitting up in chair in room. Introduced self and role. Pt states he lives his . He has been on Eliquis prior to coming to [facility] and he is not certain if he has used the 30-day free trial-offer card or not, stating his manages his medications, but he does not think he has used the card before. Pt provided w/Eliquis 30-day trial offer card and instructed on use. Instructed to ask for CM if he or his have any further questions about it. Pt uses a quad cane at times and has been using while @ [facility]. He denies other DME needs. Pt states he has done OP therapy @ [facility] in the past and states his thinks it's a good idea to do again, but he states he is not interested in it at this time. He was made aware to discuss this w/PCP if he changes his mind in the future. He voices understanding. Pt denies having any further discharge planning needs/concerns. Maurisio CLAROS RN, CM
--- NOTE | 2023-06-09 12:04 | CASEMGMT ---
BARONE was explained to patient but he was uncomfortable with signing. Copy give to patient and original placed in chart. Marjorie Wong, Discharge Planning Asst.
[2023-06-09 14:53] VITALS: BP 152/87; PULSE 80; RESP 16; TEMP 36.8; O2SAT 95
== END 2023-06-09 09:00 | disposition home or self-care (01) ==
LOC: CLSP 11:51 → PCU 13:16
PROVIDERS: Admitting Provider Internal Medicine Cardiovascular Disease; PCP Family Medicine; Referring Provider Internal Medicine Cardiovascular Disease; Visit Provider Internal Medicine Cardiovascular Disease
DX: I25.119 Atherosclerotic heart disease of native coronary artery with unspecified angina pectoris (principal); I48.20 Chronic atrial fibrillation, unspecified; R06.02 Shortness of breath; I49.3 Ventricular premature depolarization; I10 Essential (primary) hypertension; E78.5 Hyperlipidemia, unspecified; D47.2 Monoclonal gammopathy; R60.0 Localized edema; Z79.899 Other long term (current) drug therapy; N40.0 Benign prostatic hyperplasia without lower urinary tract symptoms; Z82.49 Family history of ischemic heart disease and other diseases of the circulatory system; R53.81 Other malaise; R53.1 Weakness; R42 Dizziness and giddiness; R94.39 Abnormal result of other cardiovascular function study; Z95.5 Presence of coronary angioplasty implant and graft; R94.31 Abnormal electrocardiogram [ECG] [EKG]
CPT/HCPCS: 36415; 80053; 85027; 85347; 92928; 92972; 93005; 93454; 93571; 96360; 96361; 99152; 99153; 99221; C1761; J7030; J7040; Q9967; C1725; C1769; C1874; C1887; C1894; C9600; G0378

== ENCOUNTER → 2023-07-12 | Outpatient (CLI) | payer MEDICARE, OTHER, SELFPAY ==
[2023-07-12 11:24] LABS: Absolute Lymphocyte Count 0.79 X10^3/uL (0.83-4.51); Absolute Neutrophil Count 3.3 X10^3/uL (2.0-7.7); Basophil# 0.02 X10^3/uL; Basophil% 0.4 % (0-1); Eosinophil# 0.22 X10^3/uL; Eosinophils% 4.6 % (0-5); Hematocrit 45.8 % (40-54); Hemoglobin 15.5 g/dL (13.0-16.5); Lymphocyte # 0.79 X10^3/ul (0.83-4.51); Lymphocyte % 16.4 % (19-41); Mean Corp Hgb Conc 33.8 g/dL (32-36); Mean Corpuscular Hgb 30.6 pg (27.0-32.0); Mean Corpuscular Volume 90.3 fL (80-94); Mean Platelet Vol. 11.3 fl (6.2-12.0); Monocyte# 0.48 X10^3/uL; NRBC Flagged by Analyzer 0 % (0-5); Neutrophil # 3.29 X10^3/uL (2.7-7.7); Neutrophil % 68.4 % (47-70); Platelet Count 138 K/mm3 (150-450); RBC Distribution Width CV 15.3 % (11.6-14.6); RBC Distribution Width SD 50.8 fl (35.1-43.9); Red Blood Count 5.07 M/mm3 (4.6-6.2); White Blood Count 4.8 K/mm3 (4.4-11.0)
[2023-07-12 11:51] LABS: BNP,B-Type NATRIURETIC PEPTIDE 139.1 pg/mL (0-100)
[2023-07-12 12:07] LABS: Anion Gap 3 (5-15); BUN 14 mg/dL (7-18); BUN/Creat Ratio 14.6 RATIO (10-20); Calcium,Total 8.9 mg/dL (8.5-10.1); Chloride 108 mmol/L (98-107); Creatinine, Serum 0.96 mg/dL (0.70-1.30); EST Glomerular Filtration Rate 80 mL/min (>60); Est Glom Filt Rate - Afr Amer 97 mL/min (>60); Glucose 105 mg/dL (74-106); Potassium 3.9 mmol/L (3.5-5.1); Sodium Level 142 mmol/L (136-145); T4 Free Direct 0.97 ng/dL (0.76-1.46); Thyroid Stim Hormone (TSH) 1.77 uIU/mL (0.358-3.74)
== END | disposition home or self-care (01) ==
LOC: LAB 11:00
PROVIDERS: PCP Family Medicine; Visit Provider Nurse Practitioner Family
DX: R06.00 Dyspnea, unspecified (principal); I48.20 Chronic atrial fibrillation, unspecified; R60.0 Localized edema; I10 Essential (primary) hypertension; E78.5 Hyperlipidemia, unspecified; I25.10 Atherosclerotic heart disease of native coronary artery without angina pectoris; U07.1 COVID-19
CPT/HCPCS: 36415; 80048; 83880; 84439; 84443; 85025

== ENCOUNTER 2023-08-03 21:55 | Emergency (ER) | payer MEDICARE, OTHER, SELFPAY ==
[2023-08-03 21:55] VITALS: BP 191/129; PULSE 77; RESP 16; TEMP 35.9; O2SAT 95; BMI 33.9
--- NOTE | 2023-08-03 22:29 | CT_ITS ---
EXAM: CT ABDOMEN AND PELVIS WITH INTRAVENOUS CONTRAST CLINICAL INDICATION: LLQ pain TECHNIQUE: Helically acquired images were obtained of the abdomen and pelvis with intravenous contrast. This CT exam was performed using one or more of the following dose reduction techniques: automated exposure control, adjustment of the mA and/or kV according to patient size, and/or use of iterative reconstruction technique. CONTRAST: IV 100mL Isovue-370 RADIATION DOSE: CTDIvol = 22.78 mGy, DLP = 1412.15 mGy-cm COMPARISON: No relevant prior studies available. FINDINGS: LOWER THORAX: Mild cardiomegaly. Lung bases are clear. No significant pericardial effusion. ABDOMEN: LIVER: Unremarkable. Homogeneous. No focal mass. GALLBLADDER AND BILE DUCTS: Cholecystectomy. No intra- or extrahepatic biliary ductal dilation. PANCREAS: Unremarkable. No focal cystic or solid mass. SPLEEN: Unremarkable. Normal size without focal cystic or solid mass. ADRENALS: Unremarkable. No nodules. KIDNEYS AND URETERS: There is a 3 mm stone in the distal left ureter causing mild obstructive changes. Normal renal size and position. STOMACH AND BOWEL: Unremarkable. No stomach or bowel distention. No focal inflammatory change. PELVIS: APPENDIX: The appendix is normal. BLADDER: Unremarkable. REPRODUCTIVE: Bilateral hydroceles in the scrotum. ABDOMEN and PELVIS: INTRAPERITONEAL SPACE: Unremarkable. No ascites or other fluid collection. No free air. BONES/JOINTS: Degenerative changes of the spine. No suspicious lytic or blastic abnormality. SOFT TISSUES: Unremarkable. No discrete abdominal or pelvic wall hernia. VASCULATURE: Unremarkable. Abdominal aorta is non-dilated. LYMPH NODES: Unremarkable. No enlarged lymph nodes. CT/Abdomen/Pelvis W IV Cont ONLY IMPRESSION: There is a 3 mm stone in the distal left ureter causing mild obstructive changes. Electronically Signed: Carlos Candelario MD at 0:01 EDT ,
--- NOTE | 2023-08-03 22:29 | ED.VIS.GI ---
HPI HPI - GI History of Present Illness Chief Complaint: Abd Pain Informant: patient Abdominal Pain/Flank Pain Onset: Days (2-3) Context: Gradual Onset Timing: Continuous Quality: Aching Location: - (Lower abdomen) Current Severity: Moderate Maximum Severity: Moderate Nausea/Vomiting/Emesis GI Symptom: Positive for Nausea; Negative for Vomiting Diarrhea/Melena/Hematochezia GI Symptom: Negative for Diarrhea, Melena or Hematochezia Associated Symptoms Associated Symptoms: Negative for Dysuria, Frequency or Hematuria Narrative Narrative: 83-year-old male has been developing lower abdominal pain that radiates to his low back sometimes for the last several days. He seemed a little improved after a normal otherwise bowel movement yesterday. Nausea but no vomiting. Remote cholecystectomy and no other abdominal surgeries. 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 Back pain Hemorrhoids History of fall Sternal fracture (~03/08/19) History of cardioversion Umbilical hernia BPH (benign prostatic hyperplasia) Essential hypertension Hyperlipidemia Chronic atrial fibrillation Atherosclerosis of coronary artery of [place] heart without angina pectoris Home Medications ?Medication ?Instructions ?Recorded ?Last Taken ?Type benazepril 20 mg tablet 20 mg PO DAILY #90 tabs 04/12/23 06/08/23 Rx carvedilol 6.25 mg tablet 6.25 mg PO BID #180 tabs 04/12/23 06/08/23 Rx apixaban 5 mg tablet 5 mg PO BID #180 tabs 05/19/23 06/06/23 Rx clopidogrel 75 mg tablet 75 mg PO DAILY #30 tabs 06/08/23 Unknown Rx furosemide 40 mg tablet 40 mg PO DAILY #90 tabs 07/12/23 Unknown Rx isosorbide mononitrate 30 mg 30 mg PO DAILY #30 tabs 07/12/23 Unknown Rx tablet,extended release 24 hr potassium chloride 10 mEq 20 meq (2 x 10 mEq) PO DAILY #180 07/12/23 Unknown Rx tablet,extended release tabs pitavastatin calcium 2 mg tablet 2 mg PO DAILY 08/03/23 Unknown History hydrocodone-acetaminophen 5-325mg 1 tab PO Q6H PRN PRN Pain 5 days 08/04/23 Unknown Rx 5mg-325mg #20 TABLETS Allergy/AdvReac Type Severity Reaction Status Date / Time ezetimibe (From Vytorin) Allergy Intermediate Unknown Verified 08/03/23 22:00 simvastatin (From Vytorin) Allergy Intermediate Unknown Verified 08/03/23 22:00 adhesive tape (surgical tape) AdvReac Rash Verified 08/03/23 22:00 Family History Mother , Age 86 Heart disease CAD (coronary artery disease) Diabetes Hypertension Father AAA (abdominal aortic aneurysm) Colon cancer Sister Cancer bladder and uterus Brother Cancer prostate Hypertension Grandmother Diabetes Sister Hypertension Surgical History Hx of cardiac catheterization (~06/08/23) tongue surgery History of cataract extraction with lens replacement History of extraction of renal calculus History of cholecystectomy Presence of stent in coronary artery (~06/08/23) Social History Smoking Status: Never smoker alcohol intake: current alcohol intake frequency: holidays/special occasions only substance use type: does not use caffeine: Yes Type: coffee Number of servings: 2 ROS ROS ED Constitutional Constitutional ED: Denies chills or fever(s) Eyes Eyes: Denies change in vision or diplopia ENT ENT ED: Denies rhinorrhea or sore throat Cardiovascular Cardiovascular: Reports other Details: Chronic bilateral lower extremity edema unchanged ; Denies chest pain or palpitations Respiratory/Chest Respiratory/Chest: Denies cough or dyspnea Gastrointestinal Gastrointestinal: Reports abdominal pain and nausea; Denies diarrhea, hematochezia, melena or vomiting Genitourinary Genitourinary ED: Denies dysuria or hematuria Musculoskeletal Musculoskeletal: Reports back pain; Denies neck pain Integumentary Denies abscess or rash Neurologic Neurologic: Denies headache(s), paresthesias or weakness Psychiatric Psychiatric: Denies anxiety or suicidal thoughts EXAM Physical Exam Const Vital Signs: 08/03/23 21:55 08/03/23 22:38 Temperature 96.7 F L Temperature Source Temporal Pulse Rate 77 80 Respiratory Rate 16 16 Blood Pressure 191/129 H 139/123 H Blood Pressure Mean 149 128 Pulse Ox 95 96 Oxygen Delivery Method Room Air Room Air Positive well nourished and well developed General Appearance ED: well developed and NAD HEENT Reports moist mucous membranes normocephalic and atraumatic Eyes PERRL and EOMs intact bilaterally Neck full ROM and supple Resp normal respiratory effort and clear to auscultation bilaterally Cardio regular rate, regular rhythm and no murmurs GI non-distended GI Narrative: Tender mostly left lower quadrant, other areas are mildly subjectively tender but not objectively like the left lower quadrant. The right lower quadrant is nontender. There is no guarding or rebound. No pulsatile mass but limited by abdominal obesity. Auscultation: normoactive bowel sounds Palpation: soft Back/Spine no CVA tenderness General Back: other FROM Extremity normal to inspection General Extremety ED: Yes edema; Negative for pulses abnormal or tenderness General Extremity: edema bilateral lower extremity Details: moderate; Negative for pulses abnormal Neuro oriented x3, CN's II-XII intact bilaterally and no sensory deficits noted Sensorium / Orientation: awake and alert Motor Exam: strength 5/5 throughout Psych mental status grossly normal and thought process normal Skin no rashes or lesions noted and no wounds MDM MDM MDM Narrative Medical decision making narrative: Given history and exam and location of the majority of his tenderness in the left lower quadrant, concern for diverticulitis, but differential includes other forms of colitis, kidney stone, urinary tract infection, mass, other intra-abdominal GI process. Labs noted, there is no leukocytosis or leftward shift. Liver enzymes are stable with a slightly abnormal total bilirubin which is normal for him recently normal liver enzymes otherwise lipase. Urinalysis shows microscopic hematuria but essentially negative for infection. CT abdomen/pelvis, I reviewed the images and report which I agree with, basically has a ureteral stone left distal ureter 2 mm, this is consistent with where he is having pain and I think is explaining it. Reassured, no sign of infection in his urine, and no significant leukocytosis, he is feeling much better after the morphine so I will give him a small dose of Toradol 10 mg in addition to a [place] and we will prescribe him analgesics and give him urine filters, we discussed reasons to return and to follow-up with urology if he does not pass a stone within a week or so. Lab Data Attestation: I reviewed the patient's lab results. Labs: Laboratory Results - last 24 hr 08/03/23 22:26 WBC 5.6 RBC 5.19 Hgb 15.8 Hct 47.4 MCV 91.3 MCH 30.4 MCHC 33.3 RDW Std Deviation 50.3 H RDW Coeff of Eh 15.1 H Plt Count 166 MPV 11.7 Immature Gran % (Auto) 0.500 Neut % (Auto) 66.4 Lymph % (Auto) 18.6 L [place] % (Auto) 9.6 Eos % (Auto) 4.4 Baso % (Auto) 0.5 Absolute Neuts (auto) 3.7 Absolute Lymphs (auto) 1.05 Nucleated RBC % 0 Sodium 141 Potassium 3.8 Chloride 106 Carbon Dioxide 31.0 Anion Gap 4 L BUN 17 Creatinine 1.00 Estim Creat Clear Calc 66.80 Est GFR (MDRD) Af Amer 92 Est GFR (MDRD) Non-Af 76 BUN/Creatinine Ratio 17.0 Glucose 97 Calcium 9.5 Total Bilirubin 1.20 H AST 19 ALT 19 Alkaline Phosphatase 84 Total Protein 7.3 Albumin 4.0 Globulin 3.3 Albumin/Globulin Ratio 1.2 Lipase 43 Urine Color Yellow Urine Clarity Clear Urine pH 5.0 Ur Specific [place] 1.030 Urine Protein 30 H Urine Glucose (UA) Normal Urine Ketones Negative Urine Occult Blood 250 H Urine Nitrite Negative Urine Bilirubin Negative Urine Urobilinogen Normal Ur Leukocyte Esterase 100 H Urine RBC 10-25 SEEN Urine WBC 0-5 SEEN Ur Squamous Epith Cells 0 SEEN Urine Bacteria 0 SEEN Urine Mucus 0 SEEN Radiography Diagnostic Testing: Clinical Impression(s) from Imaging Studies Abdomen/Pelvis CT 08/03/23 22:29 IMPRESSION: There is a 3 mm stone in the distal left ureter causing mild obstructive changes. Electronically Signed: Carlos Candelario MD at 0:01 EDT , Discharge Plan Triage Chief Complaint: Abd Pain ED Provider: Pedro Juarez Dx/Rx/DC Orders Clinical Impression: Ureteral colic, Ureterolithiasis Instructions: Kidney Stones Expectant Tx Prescriptions: New hydrocodone-acetaminophen 5-325 mg tablet 1 tab PO Q6H PRN PRN (Reason: Pain) 5 Days Qty: 20 0RF No Action benazepril 20 mg tablet 20 mg PO DAILY Qty: 90 3RF carvedilol 6.25 mg tablet 6.25 mg PO BID Qty: 180 3RF Rx Instructions: must administer with a meal/food isosorbide mononitrate 30 mg tablet extended release 24 hr 30 mg PO DAILY Qty: 30 11RF clopidogrel 75 mg Tablet 75 mg PO DAILY Qty: 30 11RF pitavastatin calcium 2 mg tablet 2 mg PO DAILY apixaban 5 mg tablet 5 mg PO BID Qty: 180 3RF furosemide 40 mg tablet 40 mg PO DAILY Qty: 90 3RF potassium chloride 10 mEq tablet extended release 20 meq PO DAILY Qty: 180 3RF Primary Care Provider: Abdirizak Dillon Referrals: Abdirizak Dillon MD [Primary Care Provider] - Rad Ornelas MD [Med Staff - Active Staff] - 1 Week if not improving Print Language: Polish Disposition Disposition: Home, Self Care
[2023-08-03] MEDS: Ondansetron 4 MG/2 ML Vial IV (22:37)
[2023-08-03] MEDS: Morphine 4 MG/ML Syringe IV (22:37)
[2023-08-03 22:38] VITALS: BP 139/123; PULSE 80; RESP 16; O2SAT 96
[2023-08-03 22:50] LABS: Bacteria 0 SEEN /hpf (None Seen); Mucous, Urine 0 SEEN /hpf (<or=2+); Squamous Epithelial Cells - UA 0 SEEN /hpf (0-5)
[2023-08-03 22:52] LABS: Absolute Lymphocyte Count 1.05 X10^3/uL (0.83-4.51); Absolute Neutrophil Count 3.7 X10^3/uL (2.0-7.7); Basophil# 0.03 X10^3/uL; Basophil% 0.5 % (0-1); Eosinophil# 0.25 X10^3/uL; Eosinophils% 4.4 % (0-5); Hematocrit 47.4 % (40-54); Hemoglobin 15.8 g/dL (13.0-16.5); Lymphocyte # 1.05 X10^3/ul (0.83-4.51); Lymphocyte % 18.6 % (19-41); Mean Corp Hgb Conc 33.3 g/dL (32-36); Mean Corpuscular Hgb 30.4 pg (27.0-32.0); Mean Corpuscular Volume 91.3 fL (80-94); Mean Platelet Vol. 11.7 fl (6.2-12.0); Monocyte# 0.54 X10^3/uL; Monocyte% 9.6 % (0-10); NRBC Flagged by Analyzer 0 % (0-5); Neutrophil # 3.74 X10^3/uL (2.7-7.7); Neutrophil % 66.4 % (47-70); Platelet Count 166 K/mm3 (150-450); RBC Distribution Width CV 15.1 % (11.6-14.6); RBC Distribution Width SD 50.3 fl (35.1-43.9); Red Blood Count 5.19 M/mm3 (4.6-6.2); White Blood Count 5.6 K/mm3 (4.4-11.0)
[2023-08-03 22:53] LABS: Color, Urine Yellow (Yellow); Glucose, Dipstick Normal (Normal); Ketone-Dipstick Negative (Negative); Leukocyte Esterase-Dipstick 100 /ul (Negative); Nitrite-Dipstick Negative (Negative); Occult Blood-Urine 250 /ul (Negative); Protein-Dipstick 30 mg/dl (Negative); Urine Bilirubin Dipstick Negative (Negative); Urine Clarity Clear (Clear); Urine Urobilinogen Normal (Normal)
[2023-08-03 23:10] LABS: Red Blood Cells-Urine 10-25 SEEN /hpf (0-5)
[2023-08-03 23:11] LABS: White Blood Cells 0-5 SEEN /hpf (0-5)
[2023-08-03 23:16] LABS: ALB/GLOB Ratio 1.2 RATIO (0.9-2.4); AST(SGOT) 19 U/L (15-37); Alanine Aminotransfer ALT/SGPT 19 U/L (16-61); Alkaline Phosphatase 84 U/L (45-117); Anion Gap 4 (5-15); BUN 17 mg/dL (7-18); Calcium,Total 9.5 mg/dL (8.5-10.1); Chloride 106 mmol/L (98-107); EST Glomerular Filtration Rate 76 mL/min (>60); Est Glom Filt Rate - Afr Amer 92 mL/min (>60); Globulin 3.3 g/dL (2.2-4.2); Glucose 97 mg/dL (74-106); Lipase 43 U/L (13-75); Potassium 3.8 mmol/L (3.5-5.1); Protein, Total 7.3 g/dL (6.4-8.2); Sodium Level 141 mmol/L (136-145)
[2023-08-04] VITALS: BP 133/83; PULSE 74; RESP 18; O2SAT 95
[2023-08-04 00:17] VITALS: BP 166/80; PULSE 75; RESP 16; TEMP 36.9; O2SAT 100
[2023-08-04] MEDS: Ketorolac 15 MG/ML Vial 10 MG IV (00:25)
[2023-08-04] MEDS: HYDROcodone Bitartrate/Apap 5/325 Tablet PO (00:26)
== END 2023-08-04 00:29 | disposition home or self-care (01) ==
PROVIDERS: Emergency Provider Emergency Medicine; PCP Family Medicine; Visit Provider Emergency Medicine
DX: N20.1 Calculus of ureter (principal); R31.29 Other microscopic hematuria; I10 Essential (primary) hypertension; E78.5 Hyperlipidemia, unspecified; I25.10 Atherosclerotic heart disease of native coronary artery without angina pectoris
CPT/HCPCS: 74177; 80053; 81001; 83690; 85025; 96374; 96375; 99283; Q9967; A4216; J2405

== ENCOUNTER → 2023-09-13 | Outpatient (CLI) | payer MEDICARE, OTHER, SELFPAY ==
[2023-09-13 16:49] LABS: Anion Gap 5 (5-15); BUN 18 mg/dL (7-18); BUN/Creat Ratio 18.5 RATIO (10-20); Calcium,Total 9.1 mg/dL (8.5-10.1); Chloride 107 mmol/L (98-107); Creatinine, Serum 0.97 mg/dL (0.70-1.30); EST Glomerular Filtration Rate 79 mL/min (>60); Est Glom Filt Rate - Afr Amer 95 mL/min (>60); Glucose 101 mg/dL (74-106); Magnesium 2.1 mg/dL (1.6-2.6); Potassium 4.3 mmol/L (3.5-5.1); Sodium Level 141 mmol/L (136-145)
== END | disposition home or self-care (01) ==
LOC: MFPLAB 11:34
PROVIDERS: PCP Family Medicine; Visit Provider Family Medicine
DX: I50.30 Unspecified diastolic (congestive) heart failure (principal)
CPT/HCPCS: 36415; 80048; 83735

== ENCOUNTER → 2023-11-02 | Outpatient (CLI) | payer MEDICARE, OTHER, SELFPAY ==
[2023-11-02 15:15] LABS: Absolute Neutrophil Count 4.2 X10^3/uL (2.0-7.7); Basophil# 0.03 X10^3/uL; Basophil% 0.5 % (0-1); Eosinophil# 0.12 X10^3/uL; Eosinophils% 2.1 % (0-5); Hematocrit 44.6 % (40-54); Hemoglobin 14.6 g/dL (13.0-16.5); Mean Corp Hgb Conc 32.7 g/dL (32-36); Mean Corpuscular Hgb 30.4 pg (27.0-32.0); Mean Corpuscular Volume 92.7 fL (80-94); Mean Platelet Vol. 11.9 fl (6.2-12.0); Monocyte# 0.55 X10^3/uL; Monocyte% 9.6 % (0-10); NRBC Flagged by Analyzer 0 % (0-5); Neutrophil # 4.21 X10^3/uL (2.7-7.7); Neutrophil % 73.5 % (47-70); Platelet Count 156 K/mm3 (150-450); RBC Distribution Width CV 15.7 % (11.6-14.6); RBC Distribution Width SD 53.5 fl (35.1-43.9); Red Blood Count 4.81 M/mm3 (4.6-6.2); White Blood Count 5.7 K/mm3 (4.4-11.0)
[2023-11-02 15:34] LABS: BNP,B-Type NATRIURETIC PEPTIDE 103.9 pg/mL (0-100)
[2023-11-02 15:35] LABS: ALB/GLOB Ratio 1.1 RATIO (0.9-2.4); AST(SGOT) 26 U/L (15-37); Alanine Aminotransfer ALT/SGPT 26 U/L (16-61); Albumin, Serum 3.3 g/dL (3.2-5.0); Alkaline Phosphatase 76 U/L (45-117); Anion Gap 4 (5-15); BUN 15 mg/dL (7-18); BUN/Creat Ratio 16.1 RATIO (10-20); Calcium,Total 8.8 mg/dL (8.5-10.1); Chloride 107 mmol/L (98-107); Creatinine, Serum 0.93 mg/dL (0.70-1.30); EST Glomerular Filtration Rate 82 mL/min (>60); Est Glom Filt Rate - Afr Amer 100 mL/min (>60); Globulin 3.1 g/dL (2.2-4.2); Glucose 98 mg/dL (74-106); Magnesium 2.1 mg/dL (1.6-2.6); Potassium 4.2 mmol/L (3.5-5.1); Protein, Total 6.4 g/dL (6.4-8.2); Sodium Level 141 mmol/L (136-145)
== END | disposition home or self-care (01) ==
LOC: MFPLAB 11:12
PROVIDERS: PCP Family Medicine; Visit Provider Family Medicine
DX: I25.10 Atherosclerotic heart disease of native coronary artery without angina pectoris (principal); I50.9 Heart failure, unspecified
CPT/HCPCS: 36415; 80053; 83735; 83880; 85025

== ENCOUNTER → 2023-11-18 | Outpatient (CLI) | payer MEDICARE, OTHER, SELFPAY ==
[2023-11-18 11:08] LABS: Anion Gap 5 (5-15); BUN 18 mg/dL (7-18); BUN/Creat Ratio 17.1 RATIO (10-20); Calcium,Total 8.9 mg/dL (8.5-10.1); Chloride 106 mmol/L (98-107); Creatinine, Serum 1.05 mg/dL (0.70-1.30); EST Glomerular Filtration Rate 72 mL/min (>60); Est Glom Filt Rate - Afr Amer 87 mL/min (>60); Glucose 119 mg/dL (74-106); Sodium Level 141 mmol/L (136-145)
== END | disposition home or self-care (01) ==
LOC: LAB 09:39
PROVIDERS: PCP Family Medicine; Referring Provider Internal Medicine Cardiovascular Disease; Visit Provider Internal Medicine Cardiovascular Disease
DX: L03.115 Cellulitis of right lower limb (principal); R53.83 Other fatigue; R06.00 Dyspnea, unspecified; R60.0 Localized edema; R53.1 Weakness
CPT/HCPCS: 36415; 80048

== ENCOUNTER → 2024-06-14 | Outpatient (CLI) | payer MEDICARE, OTHER, SELFPAY ==
[2024-06-14 13:08] LABS: Anion Gap 9 (5-15); BUN 13 mg/dL (4-19); BUN/Creat Ratio 16.2 RATIO (10-20); Calcium,Total 9.2 mg/dL (7.6-11.0); Carbon Dioxide 28.2 mmol/L (21.0-32.0); Chloride 105 mmol/L (98-108); Creatinine, Serum 0.79 mg/dL (0.70-1.20); EST Glomerular Filtration Rate 89 (>60); Glucose 111 mg/dL (70-99); Potassium 4.4 mmol/L (3.3-5.1); Sodium Level 143 mmol/L (133-145)
== END | disposition home or self-care (01) ==
LOC: LAB 10:28
PROVIDERS: PCP Family Medicine; Referring Provider Internal Medicine Cardiovascular Disease; Visit Provider Internal Medicine Cardiovascular Disease
DX: I10 Essential (primary) hypertension (principal)
CPT/HCPCS: 36415; 80048

== ENCOUNTER → 2024-07-07 | Outpatient (CLI) | payer MEDICARE, OTHER, SELFPAY ==
--- NOTE | 2024-07-07 12:17 | ECHOD_ITS ---
Reason For Study Reason For Study: ASHD, NONRHEUMATIC MR. Procedure This was a 2D Doppler, Color Flow transthoracic echocardiogram. Exam performed in department. Left Ventricle Normal LV size. Mild concentric left ventricular hypertrophy. The left ventricular ejection fraction is 55 %. Stage 1 diastolic dysfunction. Right Ventricle Mildly dilated right ventricle with moderate right ventricular systolic dysfunction. Atria There is severe biatrial dilatation. Mitral Valve Mild (1+) mitral valve insufficiency. Tricuspid Valve Mild to moderate (1-2+) tricuspid valve insufficiency. Right ventricular systolic pressure estimated to be 57 mmHg. Aortic Valve Tricuspid aortic valve with mild leaflet calcification and mildly restricted leaflet excursion. Aortic valve sclerosis without stenosis. Mild aortic valve regurgitation. Pulmonic Valve Mild (1+) pulmonic valve insufficiency. Great Vessels Normal sized aortic root. Pericardium/Pleural No pericardial effusion. MMode/2D Measurements & Calculations LVIDd: 5.0 cm IVSd: 1.2 cm Ao root diam: 3.7 cm LVIDs: 3.1 cm LVPWd: 1.2 cm RVDd: 3.5 cm FS: 37.6 % LAV(MOD-bp): 117.4 ml LVAd ap4: 23.8 cm2 SV(MOD-sp4): 39.7 ml LAV(MOD-bp) Indexed: 54.6 ml/m2 LVLd ap4: 7.0 cm SI(MOD-sp4): 18.5 ml/m2 LAV(MOD-sp2): 109.8 ml EDV(MOD-sp4): 68.7 ml LAV(MOD-sp4): 109.7 ml EDV(sp4-el): 68.1 ml LVAs ap4: 13.2 cm2 LVLs ap4: 5.7 cm ESV(MOD-sp4): 29.0 ml ESV(sp4-el): 26.2 ml EF(MOD-sp4): 57.8 % EF(sp4-el): 61.6 % SV(sp4-el): 42.0 ml LA A4 area: 29.7 cm2 LA dimension(2D): 5.5 cm RA A4 area: 21.0 cm2 TAPSE: 2.0 cm Doppler Measurements & Calculations MV E max jasiel: 75.1 cm/sec Ao V2 max: 121.8 cm/sec AI max jasiel: 435.8 cm/sec Ao max P.9 mmHg AI max P.0 mmHg Ao V2 mean: 87.6 cm/sec Ao mean P.4 mmHg AI dec slope: 253.4 cm/sec2 Ao V2 VTI: 22.4 cm AI P1/2t: 503.7 msec MR max jasiel: 538.8 cm/sec PA V2 max: 89.4 cm/sec MR max P.2 mmHg PA V2 mean: 63.1 cm/sec PI dec slope: 178.9 cm/sec2 MR mean jasiel: 449.1 cm/sec MR mean P.3 mmHg MR VTI: 182.2 cm TR max jasiel: 324.4 cm/sec TR max P.1 mmHg ECHO/Echo Complete Interpretation Summary Mild concentric left ventricular hypertrophy. The left ventricular ejection fraction is 55 %. Stage 1 diastolic dysfunction. Mildly dilated right ventricle with moderate right ventricular systolic dysfunc tion. There is severe biatrial dilatation. Mild (1+) mitral valve insufficiency. Mild to moderate (1-2+) tricuspid valve insufficiency. Right ventricular systolic pressure estimated to be 57 mmHg. Aortic valve sclerosis without stenosis. Mild aortic valve regurgitation. Mild (1+) pulmonic valve insufficiency. Ordering Physician: Delta^Emile^^^ Referring Physician: Abdirizak Dillon Performed By: Evelyn Vazquez RDCS, RVT
== END | disposition home or self-care (01) ==
LOC: CVS 12:14
PROVIDERS: PCP Family Medicine; Referring Provider Internal Medicine Cardiovascular Disease; Visit Provider Internal Medicine Cardiovascular Disease
DX: I34.0 Nonrheumatic mitral (valve) insufficiency (principal); R60.0 Localized edema; R53.83 Other fatigue; R06.00 Dyspnea, unspecified; I25.10 Atherosclerotic heart disease of native coronary artery without angina pectoris
CPT/HCPCS: 93306

== ENCOUNTER → 2024-12-04 | Outpatient (CLI) | payer MEDICARE, OTHER, SELFPAY ==
--- NOTE | 2024-12-04 09:58 | CDU_ITS ---
Reason For Study Reason For Study: Dizzines Rt. Velocities/BP Lt. Velocities/BP Prox CCA 63.6/18.2 cm/sec. Prox CCA 64.5/13.5 cm/sec. Mid CCA 60.7/9.7 cm/sec. Mid CCA 48.5/10.7 cm/sec. Dist CCA 57/14.5 cm/sec. Dist CCA 41.9/11.6 cm/sec. Prox ICA 47.5/13.5 cm/sec. Prox ICA 40/9.7 cm/sec. Mid ICA 50.4/15.4 cm/sec. Mid ICA 47.3/19.3 cm/sec. Dist ICA 62.6/23 cm/sec. Dist ICA 58.9/17.3 cm/sec. Rt. ICA/CCA = 1.03. Lt. ICA/CCA = 1.21. Prox ECA 50.4/14.5 cm/sec. Prox ECA 43.7/15.4 cm/sec. Rt. Vert. 37.1/12.6 cm/sec. Lt. Vert. 37.4/12.7 cm/sec. Right Extracranial There is intimal thickening but no significant atherosclerotic plaque noted in the right common carotid artery. There is intimal thickening but no significant atherosclerotic plaque noted in the right internal carotid artery. The right internal carotid artery is very tortuous. There is intimal thickening but no significant atherosclerotic plaque noted in the right external carotid artery. Antegrade flow is noted in the right vertebral artery. Left Extracranial There is intimal thickening but no significant atherosclerotic plaque noted in the left common carotid artery. There is homogeneous, smooth atherosclerotic plaque noted in the left internal carotid artery. There is intimal thickening but no significant atherosclerotic plaque noted in the left external carotid artery. Antegrade flow is noted in the left vertebral artery. Procedure Carotid Duplex 58611. This is a Carotid Duplex examination using B-mode, color flow and specral Doppler. Exam performed in department. VL/Carotid Duplex Ultrasound Interpretation Summary No significant atherosclerotic plaque or stenosis noted in the right internal c arotid artery. Mild (<50%) stenosis left extracranial internal carotid. Flow within the vertebral arteries is antegrade bilaterally. Ordering Physician: Emile Sorenson Referring Physician: Abdirizak Dillon MD Performed By: Queenie Madera RVT
== END | disposition home or self-care (01) ==
PROVIDERS: PCP Family Medicine; Referring Provider Internal Medicine Cardiovascular Disease; Visit Provider Internal Medicine Cardiovascular Disease
DX: R42 Dizziness and giddiness (principal); I25.720 Atherosclerosis of autologous artery coronary artery bypass graft(s) with unstable angina pectoris; I34.0 Nonrheumatic mitral (valve) insufficiency; R94.39 Abnormal result of other cardiovascular function study; R60.0 Localized edema; I10 Essential (primary) hypertension
CPT/HCPCS: 93880